=== PATIENT | female | born 1975 | race African-American/Black ===

== ENCOUNTER 2016-11-11 07:04 | Emergency (ER) | payer MEDICAID ==
[2016-11-11] MEDS ORDERED: IPRATROPIUM/ALBUTEROL 0.5-2.5 MG/3 ML AMPUL NEB ONE (09:19)
[2016-11-11] MEDS ORDERED: PREDNISONE 20 MG TABLET PO ONE (09:19)
[2016-11-11] MEDS ORDERED: AZITHROMYCIN 250 MG TABLET PO ONE (09:24)
[2016-11-11] MEDS ORDERED: ALBUTEROL SULFATE 0.083% NEB 2.5 MG/3 ML AMPUL NEB SCH (09:30)
--- NOTE | 2016-11-11 10:23 | ER Document Report ---
ED Respiratory Problem - General Chief Complaint: Asthma Exacerbation Stated Complaint: SHORTNESS OF BREATH Time seen by provider: 09:20 Mode of Arrival: Ambulatory Information source: Patient Notes: 41-year-old female presents to ED for cough congestion and wheezing. She does not have all of her meds and has a nasal congestion denies any fever nausea or vomiting. TRAVEL OUTSIDE OF THE [place] IN LAST 30 DAYS: No - HPI Patient complains to provider of: Asthma, Cough, Short of breath Onset: Other - 3 days Duration: Continuous Initiating Event: URI Quality of pain: Other Severity: Moderate - Tight Pain Level: 3 Short of Breath: Mild Chest pain/discomfort: Tightness Cough: Productive Sputum amount: Small Sputum color: Yellow Sputum consistency: Thick At home treatment: Bronchodilators Associated symptoms: Congestion, Cough, PND, Runny nose, Wheezing Similar symptoms previously: Yes Recently seen / treated by doctor: No - Related Data Allergies/Adverse Reactions: codeine Allergy (Verified 11/11/16 09:23) latex Allergy (Verified 11/11/16 09:23) RASH, SWOLLEN TONGUE Past Medical History - General Information source: Patient - Social History Smoking Status: Current Every Day Smoker Cigarette use (# per day): Yes - 1-2 back amount today Chew tobacco use (# tins/day): No Smoking Education Provided: Yes - less than 2 minutes Frequency of alcohol use: None Drug Abuse: Marijuana Lives with: Alone Family History: Arthritis, CAD, CVA, DM, Hyperlipidemia, Hypertension, Malignancy, Thyroid Disfunction Patient has suicidal ideation: No Patient has homicidal ideation: No - Past Medical History Cardiac Medical History: Reports: None Pulmonary Medical History: Reports: Hx Asthma EENT Medical History: Reports: None Neurological Medical History: Reports: None Endocrine Medical History: Reports: None Renal/ Medical History: Reports: None Malignancy Medical History: Reports: None GI Medical History: Reports: None Musculoskeltal Medical History: Reports None Skin Medical History: Reports None Psychiatric Medical History: Reports: Hx Anxiety, Hx Depression, Hx Post Traumatic Stress Disorder Traumatic Medical History: Reports: None Infectious Medical History: Reports: None Past Surgical History: Reports: Hx Adenoidectomy, Hx Tonsillectomy, Hx Tubal Ligation - Immunizations Hx Diphtheria, Pertussis, Tetanus Vaccination: Yes Review of Systems - Review of Systems Constitutional: Recent illness. denies: Fever EENT: Nose discharge Cardiovascular: No symptoms reported Respiratory: Cough, Sputum, Wheezing Gastrointestinal: No symptoms reported Genitourinary: No symptoms reported Female Genitourinary: No symptoms reported Musculoskeletal: No symptoms reported Skin: No symptoms reported Hematologic/Lymphatic: No symptoms reported Neurological/Psychological: No symptoms reported Physical Exam - Vital signs Vitals: Temp Pulse BP Pulse Ox 98.3 F 81 128/72 H 97 11/11/16 07:13 11/11/16 07:13 11/11/16 07:13 11/11/16 07:13 Course - Re-evaluation Re-evalutation: 11/11/16 19:24 Discussed x-rays with patient patient sent home on prescriptions for prednisone and albuterol and azithromycin. Patient to follow-up with her primary doctor list of primary doctors given to patient. - Vital Signs Vital signs: Temp Pulse Resp BP Pulse Ox 98.3 F 81 20 128/72 H 97 11/11/16 07:30 11/11/16 07:30 11/11/16 07:30 11/11/16 07:30 11/11/16 07:30 - Diagnostic Test Radiology reviewed: Image reviewed, Reports reviewed Discharge - Discharge Clinical Impression: Asthma exacerbation Condition: Stable Disposition: HOME, SELF-CARE Instructions: Family Physicians / Practices Additional Instructions: ASTHMA: You have been diagnosed as having asthma. This is a condition where there is episodic tightness in the bronchial tubes. Allergies, infections, and polluted or cold air may be contributing factors. Emergency treatment of a severe asthma attack may include adrenaline shots , or bronchodilator aerosol. You may feel lightheaded, have a decreased exercise tolerance and a rapid pulse for an hour or two. Rest and get plenty of fluids. Home treatment of asthma requires bronchodilator drugs. These can be administered by injection, inhalation, or by mouth. Antibiotics and corticosteroids may be required for some patients. You should avoid chemical fumes, dusts, pollens, and exercising in very cold or dry air. If you smoke, stop!! If you develop a fever, increased wheezing, chest pain, or severe shortness of breath, you should contact the doctor immediately. STEROID MEDICATION: You have been given an injection of or oral medicine of the cortisone/ steroid class. This medication is used to control inflammation or allergy. Khalif t is usually only given for a short period of time, until the acute process subsides. There are usually no side effects from short-term use of cortisone-like medications. Some persons feel an increased sense of well-being and are not sleepy at bedtime. Long-term use of cortisone medications is best avoided, unless required for a severe condition. If your condition does not remit, or relapses after the course of corticosteroid medication, you should consult your physician. INHALED BRONCHODILATORS: You have received treatment(s) of and/or prescription for an inhaled bronchodilator -- a medication which stimulates the airways in the lung to dilate. This improves the flow of air in asthma, bronchitis, and emphysema. These medicines have some similarity to adrenaline, and can cause similar side effects: shakiness, racing heart, and a sense of nervousness. These side effects decrease with time. Contact your doctor if these side effects are severe. Do not over-use the medicine. Too-frequent use of the inhaler may make it ineffective. Call your doctor if the inhaler is not controlling your symptoms at the prescribed doses. SMOKING: If you smoke, you should stop smoking. The tar and chemicals in cigarette smoke are harmful. Smoking has been shown to cause: emphysema chronic bronchitis lung cancer mouth and throat cancer stomach and pancreas cancer premature aging defects In addition, smoking increases ear and lung infections in children of smokers. AZITHROMYCIN: Azithromycin (Zithromax) is a broad spectrum antibiotic in the same class as erythromycin. It can treat a variety of bacterial infections, but is most frequently used for respiratory infections. Azithromycin is extremely long-lasting. It accumulates in body tissues and continues to kill bacteria for many days. In order to improve absorption, Azithromycin should be taken at least one hour before or two hours after a meal. It does not have the same strong tendency to upset the stomach as erythromycin and is usually very well tolerated. Patients who have had a rash or other true allergic reactions to erythromycin should not take this medication. Call if you develop gastrointestinal distress, severe diarrhea, rash, hives, itching, or shortness of breath. USE OF ACETAMINOPHEN (Tylenol): Acetaminophen may be taken for pain relief or fever control. It's much safer than aspirin, offering a wider range of "safe" dosages. It is safe during . Some brand names are Tylenol, Panadol, Datril, Anacin 3, Tempra, and Liquiprin. Acetaminophen can be repeated every four hours. The following are maximum recommended dosages: WEIGHT Dose Drops Elixir Chewable( 80mg) (LBS.) drprs=droppers tsp=teaspoon 6 40 mg 0.4 ml (1/2) 6-11 80 mg 0.8 ml (full) tsp 1 tab 12-16 120 mg 1 1/2 drprs 3/4 tsp 1 1/2 tabs 17-23 160 mg 2 drprs 1 tsp 2 tabs 24-30 240 mg 3 drprs 1 1/2 tsp 3 tabs 30-35 320 mg 2 tsp 4 tabs 36-41 360 mg 2 1/4 tsp 4 1/2 tabs 42-47 400 mg 2 1/2 tsp 5 tabs 48-53 480 mg 3 tsp 6 tabs 54-59 520 mg 3 1/4 tsp 6 1/2 tabs 60-64 560 mg 3 1/2 tsp 7 tabs 65-70 600 mg 3 3/4 tsp 7 1/2 tabs 71-76 640 mg 4 tsp 8 tabs 77-82 720 mg 4 1/2 tsp 9 tabs 83-88 800 mg 5 tsp 10 tabs >89 pounds or adults 650 mg to 900 mg Acetaminophen can be repeated every four hours. Maximum dose not to exceed 4000 mg a day. These maximum recommended dosages are slightly higher than the dosages written on the product container, but these dosages are very safe and below the toxic dosage for acetaminophen. FOLLOW-UP CARE: If you have been referred to a physician for follow-up care, call the physician s office for an appointment as you were instructed or within the next two days. If you experience worsening or a significant change in your symptoms, notify the physician immediately or return to the Emergency Department at any time for re-evaluation. Prescriptions: Albuterol Sulfate [Proair HFA Inhalation Aerosol 8.5 gm MDI] 2 puff IH Q4H PRN # 1 mdi PRN Reason: Azithromycin [Zithromax 250 mg Tablet] 250 mg PO ASDIR PRN #6 tablet PRN Reason: Prednisone [Deltasone 20 mg Tablet] 3 tab PO DAILY 5 Days
[2016-11-11 11:59] VITALS: BP 127/76
== END 2016-11-11 12:02 | disposition home or self-care (01) ==
LOC: ER 07:04
DX: J45.901 Unspecified asthma with (acute) exacerbation (principal); R06.02 Shortness of breath; F17.210 Nicotine dependence, cigarettes, uncomplicated; Z91.040 Latex allergy status; Z98.51 Tubal ligation status; Z88.6 Allergy status to analgesic agent
CPT/HCPCS: 94640; 99284; 71020; Q0144; J7512; J7620

== ENCOUNTER 2017-03-29 03:09 | Emergency (ER) | payer SELFPAY ==
[2017-03-29] MEDS ORDERED: PREDNISONE 20 MG TABLET PO ONE (03:26)
[2017-03-29] MEDS ORDERED: IPRATROPIUM/ALBUTEROL 0.5-2.5 MG/3 ML AMPUL NEB ONE ×2 (03:26→05:26)
[2017-03-29] MEDS: ALBUTEROL SULFATE 0.083% NEB 2.5 MG/3 ML AMPUL NEB SCH ×2 (03:44→04:00)
[2017-03-29] MEDS ORDERED: MAGNESIUM SULFATE/D5W 100 ML IV PRN (05:26)
[2017-03-29] MEDS ORDERED: NORMAL SALINE 1000 ML 1,000 ML IV ONE (05:27)
--- NOTE | 2017-03-29 05:29 | ER Document Report ---
ED Medical Screen (RME) - General Chief Complaint: Asthma Exacerbation Stated Complaint: DIFFICULTY BREATHING Time Seen by Provider: 03/29/17 05:25 Notes: Patient is a 41-year-old asthmatic that comes emergency department for chief complaint of several days of cough and worsening wheezing. She denies fever. She has received 2 DuoNeb treatments after arrival and 40 mg of prednisone. She states she feels somewhat improved. She continues to intermittently smoke. Patient also states that she is urinating all the time and cannot drink enough fluids. No diagnosis of diabetes. Diabetes runs in the family. TRAVEL OUTSIDE OF THE [place] IN LAST 30 DAYS: No - Related Data Allergies/Adverse Reactions: codeine Allergy (Verified 11/11/16 09:23) latex Allergy (Verified 11/11/16 09:23) RASH, SWOLLEN TONGUE Past Medical History Pulmonary Medical History: Reports: Hx Asthma Renal/ Medical History: Denies: Hx Peritoneal Dialysis Psychiatric Medical History: Reports: Hx Anxiety, Hx Depression, Hx Post Traumatic Stress Disorder Past Surgical History: Reports: Hx Adenoidectomy, Hx Tonsillectomy, Hx Tubal Ligation - Immunizations Hx Diphtheria, Pertussis, Tetanus Vaccination: Yes Physical Exam - Vital signs Vitals: Temp Pulse Resp BP Pulse Ox 97.7 F 88 22 H 120/85 97 03/29/17 03:23 03/29/17 03:03/29/17 03:23 03/29/17 03:23 03/29/17 03:23 - General General appearance: Appears well In distress: None - Patient can speak in full sentences, smiling, intermittently coughing - Respiratory Respiratory status: No: Respiratory distress, Labored, Tachypnea - Borderline Breath sounds: Nonproductive cough, Wheezing - Loud expiratory wheezes bilaterally but good air movement Course - Re-evaluation Re-evalutation: Patient is not in respiratory distress, has loud expiratory wheezes, good air movement, no hypoxia. Workup for diabetes and evaluation of respiratory status. - Vital Signs Vital signs: Temp Pulse Resp BP Pulse Ox 97.7 F 88 22 H 120/85 98 03/29/17 03:23 03/29/17 03:23 03/29/17 03:23 03/29/17 03:23 03/29/17 05:21
[2017-03-29] MEDS ORDERED: ALBUTEROL SULFATE 0.083% NEB 2.5 MG/3 ML AMPUL NEB ONE (06:15)
[2017-03-29 06:17] LABS: ABSOLUTE BASOPHILS # (AUTO) 0.1 10^3/uL (0.0-0.2); ABSOLUTE EOSINOPHILS # (AUTO) 0.2 10^3/uL (0.0-0.6); ABSOLUTE LYMPHOCYTES (AUTO) 2.8 10^3/uL (0.5-4.7); ABSOLUTE MONOCYTES (AUTO) 0.6 10^3/uL (0.1-1.4); EOSINOPHILS % (AUTO) 1.3 % (0-6); HEMATOCRIT 43.2 % (36.0-47.0); HEMOGLOBIN 14.2 g/dL (12.0-15.5); HGB HCT DIFFERENCE -0.6; LYMPHOCYTES % (AUTO) 20.5 % (13-45); MEAN CORPUSCULAR HEMOGLOBIN 28.9 pg (27.0-33.4); MEAN CORPUSCULAR HGB CONC 32.9 g/dL (32.0-36.0); MEAN CORPUSCULAR VOLUME 88 fl (80-97); MONOCYTES % (AUTO) 4.4 % (3-13); RED BLOOD COUNT 4.92 10^6/uL (3.72-5.28); RED CELL DISTRIBUTION WIDTH 14.2 % (11.5-14.0); SEGMENTED NEUTROPHILS % (AUTO) 72.8 % (42-78); WHITE BLOOD COUNT 13.8 10^3/uL (4.0-10.5)
--- NOTE | 2017-03-29 06:39 | RADIOLOGY REPORT (SQ) ---
EXAM DESCRIPTION: CHEST SINGLE VIEW COMPLETED DATE/TIME: 03/29/2017 6:26 am REASON FOR STUDY: cough, shortness of breath COMPARISON: Chest x-ray 11/11/2016. EXAM PARAMETERS: NUMBER OF VIEWS: One view. TECHNIQUE: Single frontal radiographic view of the chest acquired. RADIATION DOSE: NA LIMITATIONS: None. FINDINGS: LUNGS AND PLEURA: No consolidation, pneumothorax or pleural effusion. MEDIASTINUM AND HILAR STRUCTURES: No masses. Contour normal. HEART AND VASCULAR STRUCTURES: Heart normal in size. No overt vascular congestion. BONES: No acute findings. HARDWARE: None in the chest. IMPRESSION: No acute radiographic finding in the chest. TECHNICAL DOCUMENTATION: JOB ID: [id number]
[2017-03-29 06:55] LABS: ALANINE AMINOTRANSFERASE 31 U/L (9-52); ALKALINE PHOSPHATASE 172 U/L (38-126); ANION GAP 10 (5-19); ASPARTATE AMINO TRANSFERASE 15 U/L (14-36); BILIRUBIN,DIRECT 0.3 mg/dL (0.0-0.4); BILIRUBIN,TOTAL 0.4 mg/dL (0.2-1.3); BLOOD UREA NITROGEN 18 mg/dL (7-20); CALCIUM 9.4 mg/dL (8.4-10.2); CARBON DIOXIDE 19 mmol/L (22-30); CHLORIDE 108 mmol/L (98-107); CREATININE RESULT 0.87 mg/dL (0.52-1.25); GLUCOSE 107 mg/dL (75-110); POTASSIUM 4.1 mmol/L (3.6-5.0)
[2017-03-29 06:56] LABS: TOTAL PROTEIN 7.3 g/dL (6.3-8.2)
[2017-03-29 08:05] LABS: APPEARANCE,URINE CLEAR; BILIRUBIN,URINE NEGATIVE (NEGATIVE); GLUCOSE, URINE NEGATIVE (NEGATIVE); KETONES,URINE NEGATIVE (NEGATIVE); LEUKOCYTE ESTERASE,URINE NEGATIVE (NEGATIVE); NITRITE,URINE NEGATIVE (NEGATIVE); PROTEIN,URINE NEGATIVE (NEGATIVE); URINE SPECIFIC GRAVITY 1.005; UROBILINOGEN,URINE NEGATIVE mg/dL (<2.0)
[2017-03-29 08:47] VITALS: BP 129/80
[2017-03-29] MEDS ORDERED: ALBUTEROL SULFATE HFA (90 MCG/PUFF) 8 GM MDI (1 MDI/ER DISP) IH ONE (08:49)
--- NOTE | 2017-03-29 08:49 | ER Document Report ---
ED General - General Chief Complaint: Asthma Exacerbation Stated Complaint: DIFFICULTY BREATHING Time Seen by Provider: 03/29/17 05:25 TRAVEL OUTSIDE OF THE [place] IN LAST 30 DAYS: No - HPI Patient complains to provider of: Shortness of breath Notes: Patient coming in for shortness of breath. Patient has a history of asthma with admissions in the past. Patient states that she has ran out of her medication recently patient does state that she was taken prednisone and albuterol. Denies any recent antibiotics denies any recent travel. Patient is lying flat upon my evaluation. Patient denies any production of cough denies fever chills nausea vomiting chest pain abdominal pain. - Related Data Allergies/Adverse Reactions: codeine Allergy (Verified 11/11/16 09:23) latex Allergy (Verified 11/11/16 09:23) RASH, SWOLLEN TONGUE Past Medical History - Social History Smoking Status: Unknown if Ever Smoked Family History: Arthritis, CAD, CVA, DM, Hyperlipidemia, Hypertension, Malignancy, Thyroid Disfunction Patient has suicidal ideation: No Patient has homicidal ideation: No Pulmonary Medical History: Reports: Hx Asthma Renal/ Medical History: Denies: Hx Peritoneal Dialysis Psychiatric Medical History: Reports: Hx Anxiety, Hx Depression, Hx Post Traumatic Stress Disorder Past Surgical History: Reports: Hx Adenoidectomy, Hx Tonsillectomy, Hx Tubal Ligation - Immunizations Hx Diphtheria, Pertussis, Tetanus Vaccination: Yes Review of Systems - Review of Systems Constitutional: No symptoms reported EENT: No symptoms reported Cardiovascular: No symptoms reported Respiratory: Cough, Short of breath, Wheezing Gastrointestinal: No symptoms reported Genitourinary: No symptoms reported Female Genitourinary: No symptoms reported Musculoskeletal: No symptoms reported Skin: No symptoms reported Hematologic/Lymphatic: No symptoms reported Neurological/Psychological: No symptoms reported -: Yes All other systems reviewed and negative Physical Exam - Vital signs Vitals: Temp Pulse Resp BP Pulse Ox 97.7 F 88 22 H 120/85 97 03/29/17 03:23 03/29/17 03:23 03/29/17 03:23 03/29/17 03:23 03/29/17 03:23 Interpretation: Normal - General General appearance: Appears well, Alert - HEENT Head: Normocephalic, Atraumatic Eyes: Normal Pupils: PERRL - Respiratory Respiratory status: No respiratory distress Chest status: Nontender Breath sounds: Normal Chest palpation: Normal - Cardiovascular Rhythm: Regular Heart sounds: Normal auscultation Murmur: No - Abdominal Inspection: Normal Distension: No distension Bowel sounds: Normal Tenderness: Nontender Organomegaly: No organomegaly - Back Back: Normal, Nontender - Extremities General upper extremity: Normal inspection, Nontender, Normal color, Normal ROM , Normal temperature General lower extremity: Normal inspection, Nontender, Normal color, Normal ROM , Normal temperature, Normal weight bearing. No: Babatunde's sign - Neurological Neuro grossly intact: Yes Cognition: Normal Orientation: AAOx4 Gruver Coma Scale Eye Opening: Spontaneous Gruver Coma Scale Verbal: Oriented Amrik Coma Scale Motor: Obeys Commands Amrik Coma Scale Total: 15 Speech: Normal Motor strength normal: LUE, RUE, LLE, RLE Sensory: Normal - Psychological Associated symptoms: Normal affect, Normal mood - Skin Skin Temperature: Warm Skin Moisture: Dry Skin Color: Normal Course - Re-evaluation Re-evalutation: 03/29/17 14:09 Patient lungs clear sleeping with normal saturation. Patient was to be in no obvious distress. Patient will be discharged home with bronchodilators encouraged follow-up primary care physician - Vital Signs Vital signs: Temp Pulse Resp BP Pulse Ox 97.7 F 88 21 H 129/80 H 96 03/29/17 03:23 03/29/17 03:23 03/29/17 09:00 03/29/17 08:31 03/29/17 09:00 - Laboratory Result Diagrams: 03/29/17 06:00 03/29/17 06:31 Laboratory results interpreted by me: 03/29/17 03/29/17 06:00 06:31 WBC 13.8 H RDW 14.2 H Absolute Neutrophils 10.0 H Chloride 108 H Carbon Dioxide 19 L Alkaline Phosphatase 172 H Discharge - Discharge Clinical Impression: Asthma exacerbation Condition: Good Disposition: HOME, SELF-CARE Instructions: Asthma (OM), Stop Smoking (OM), Inhaled Bronchodilators (OM) Additional Instructions: Your lab work today shows no signs of acute pathology. Please follow-up with your primary care physician. Return to the ER symptoms worsen. Take medication as prescribed. Prescriptions: Albuterol Sulfate [Albuterol Sulfate 2.5mg/3 mL] 2.5 mg IH Q4 #30 ml Prednisone [Deltasone 20 mg Tablet] 3 tab PO DAILY 5 Days
== END 2017-03-29 09:10 | disposition home or self-care (01) ==
LOC: ER 03:09
DX: J45.901 Unspecified asthma with (acute) exacerbation (principal); Z88.6 Allergy status to analgesic agent; Z91.040 Latex allergy status; Z98.51 Tubal ligation status
CPT/HCPCS: 94640 ×2; 99285; 96361; 96365; 36415; 85025; 81025; 80053; 81001; 71010; J3475; J7512; J7030; J3490; J7620

== ENCOUNTER 2017-04-16 00:59 | Inpatient (IN) | payer SELFPAY ==
[2017-04-16] MEDS ORDERED: IPRATROPIUM/ALBUTEROL 0.5-2.5 MG/3 ML AMPUL NEB ONE ×3 (01:10)
[2017-04-16] MEDS ORDERED: METHYLPREDNISOLONE INJ 125 MG/2 ML SDV IV ONE (01:11)
--- NOTE | 2017-04-16 01:12 | ER Document Report ---
ED Medical Screen (RME) - General Chief Complaint: Shortness Of Breath Stated Complaint: TROUBLE BREATHING Time Seen by Provider: 04/16/17 01:10 Notes: Patient is a 41-year-old female with a history of asthma that comes emergency department for chief complaint of difficulty breathing. She states that she has had difficulty for the past couple weeks, she finished a prednisone treatment some days ago, she finished up her home inhaler tonight. She denies smoking, fever, or history of intubation. TRAVEL OUTSIDE OF THE [place] IN LAST 30 DAYS: No - Related Data Allergies/Adverse Reactions: codeine Allergy (Verified 11/11/16 09:23) latex Allergy (Verified 11/11/16 09:23) RASH, SWOLLEN TONGUE Past Medical History Pulmonary Medical History: Reports: Hx Asthma Renal/ Medical History: Denies: Hx Peritoneal Dialysis Psychiatric Medical History: Reports: Hx Anxiety, Hx Depression, Hx Post Traumatic Stress Disorder Past Surgical History: Reports: Hx Adenoidectomy, Hx Tonsillectomy, Hx Tubal Ligation - Immunizations Hx Diphtheria, Pertussis, Tetanus Vaccination: Yes Physical Exam - Vital signs Vitals: Pulse Resp BP Pulse Ox 113 H 25 H 146/102 H 93 04/16/17 01:07 04/16/17 01:07 04/16/17 01:07 04/16/17 01:07 - Respiratory Respiratory status: Tachypnea - mild Breath sounds: Decreased air movement, Nonproductive cough, Wheezing Course - Re-evaluation Re-evalutation: Patient with mild tachypnea, she is still talking in complete sentences. Decreased breath sounds and wheezing throughout. Nonproductive cough. Initiating treatments. - Vital Signs Vital signs: Temp Pulse Resp BP Pulse Ox 113 H 25 H 146/102 H 93 04/16/17 01:07 04/16/17 01:07 04/16/17 01:07 04/16/17 01:07
[2017-04-16] MEDS ORDERED: ALBUTEROL SULFATE 0.083% NEB 2.5 MG/3 ML AMPUL NEB ONE (01:46)
--- NOTE | 2017-04-16 01:48 | ER Document Report ---
ED General - General Chief Complaint: Shortness Of Breath Stated Complaint: TROUBLE BREATHING Time Seen by Provider: 04/16/17 01:10 Cannot obtain history due to: Unstable vital signs Notes: Patient is a 41-year-old female with past medical history of asthma, has had prior hospitalization but no prior intubations who presents with 2 days of progressively worsening shortness of breath. Patient just got off a steroid taper several days ago and notes that her symptoms gotten progressively worse since that time. She has not noted any seems to acutely worsen her symptoms. She has not seen her primary care doctor regarding today's concerns. At time of my assessment patient notes that she feels severely short of breath and appears to be in respiratory distress. TRAVEL OUTSIDE OF THE [place] IN LAST 30 DAYS: No - Related Data Allergies/Adverse Reactions: codeine Allergy (Verified 11/11/16 09:23) latex Allergy (Verified 11/11/16 09:23) RASH, SWOLLEN TONGUE Past Medical History - General Information source: Patient Cannot obtain history due to: Unstable vital signs - Social History Smoking Status: Never Smoker Frequency of alcohol use: None Drug Abuse: None Family History: Arthritis, CAD, CVA, DM, Hyperlipidemia, Hypertension, Malignancy, Thyroid Disfunction Patient has suicidal ideation: No Patient has homicidal ideation: No Pulmonary Medical History: Reports: Hx Asthma Renal/ Medical History: Denies: Hx Peritoneal Dialysis Psychiatric Medical History: Reports: Hx Anxiety, Hx Depression, Hx Post Traumatic Stress Disorder Past Surgical History: Reports: Hx Adenoidectomy, Hx Tonsillectomy, Hx Tubal Ligation - Immunizations Hx Diphtheria, Pertussis, Tetanus Vaccination: Yes Review of Systems - Review of Systems Notes: Constitutional: Negative for fever. HENT: Negative for sore throat. Eyes: Negative for visual changes. Cardiovascular: Negative for chest pain. Respiratory: Positive for shortness of breath. Gastrointestinal: Negative for abdominal pain, vomiting or diarrhea. Genitourinary: Negative for dysuria. Musculoskeletal: Negative for back pain. Skin: Negative for rash. Neurological: Negative for headaches, weakness or numbness. 10 point ROS negative except as marked above and in HPI. Physical Exam - Vital signs Vitals: Pulse Resp BP Pulse Ox 113 H 25 H 146/102 H 93 04/16/17 01:07 04/16/17 01:07 04/16/17 01:07 04/16/17 01:07 Interpretation: Tachycardic, Hypoxic, Tachypneic Notes: PHYSICAL EXAMINATION: GENERAL: Appears to be in moderate respiratory distress, sitting in a tripod position. HEAD: Atraumatic, normocephalic. EYES: Pupils equal round and reactive to light, extraocular movements intact, sclera anicteric, conjunctiva are normal. ENT: nares patent, oropharynx clear without exudates. Moderately dry mucous membranes. NECK: Normal range of motion, supple without lymphadenopathy LUNGS: Moderate to severe respiratory distress with initial respiratory of 32 at time of my assessment. Unable to complete a forward sentence without needing to take a breath. Extensive expiratory wheezing in all lung hunt with diminished air movement throughout. HEART: Regular tachycardia without murmurs ABDOMEN: Soft, nontender, normoactive bowel sounds. No guarding, no rebound. No masses appreciated. EXTREMITIES: Normal range of motion, no pitting or edema. No cyanosis. NEUROLOGICAL: No focal neurological deficits. Moves all extremities spontaneously and on command. PSYCH: Normal mood, normal affect. SKIN: Warm, Dry, normal turgor, no rashes or lesions noted. Course - Re-evaluation Re-evalutation: 04/16/17 01:46 Patient presents in moderate to severe respiratory distress initially tachypneic at 32 breaths per minute. At time of my assessment, patient is still breathing at 32 times a minute, wheezing, unable to speak and greater than 3 word sentences. She was immediately placed on a continuous nebulizer, IV access was established, IV steroids and magnesium will be administered. She will be placed on a continuous monitor and will require frequent reassessments given her degree of difficulty breathing. 04/16/17 02:27 Patient remains mildly tachypneic at 24 breaths per minute, continues to wheeze although is now able to talk in a near complete sentences. Will continue to monitor. 04/16/17 03:19 I have again reassess the patient and she persists with wheezing, mild tachypnea remains at approximately 22 breaths per minute. She is able to complete 5 words at this time without needing to take a breath in a sentence but continues to be visibly short of breath. Patient would like to be discharged home but I do not think this is safe and I have discussed this with the patient. She is agreeable to admission. I discussed Dr. Styles who is requesting basic laboratories and then will admit. - Vital Signs Vital signs: Temp Pulse Resp BP Pulse Ox 113 H 20 146/102 H 99 04/16/17 01:07 04/16/17 02:00 04/16/17 01:07 04/16/17 01:55 - Diagnostic Test Radiology reviewed: Image reviewed, Reports reviewed Radiology results interpreted by me: 04/16/17 02:45 Chest x-ray: No acute infiltrate or pneumothorax Critical Care Note - Critical Care Note Total time excluding time spent on procedures (mins): 36 Comments: Critical care time spent obtaining history from patient or surrogate, discussions with consultants, development of treatment plan with patient or surrogate, evaluation of patient's response to treatment, examination of patient , ordering and performing treatments and interventions, ordering and review of laboratory studies, re-evaluation of patient's condition, ordering and review of radiographic studies and review of old charts Discharge - Discharge Clinical Impression: Acute severe exacerbation of asthma, Respiratory distress Condition: Fair Disposition: ADMITTED INPATIENT Admitting Provider: Hospitalist Unit Admitted: [facility]
[2017-04-16] MEDS: MAGNESIUM SULFATE/D5W 100 ML IV SCH ×2 (01:52→05:38)
--- NOTE | 2017-04-16 02:30 | RADIOLOGY REPORT (SQ) ---
EXAM DESCRIPTION: CHEST SINGLE VIEW COMPLETED DATE/TIME: 04/16/2017 2:07 am REASON FOR STUDY: shortness of breath COMPARISON: 03/29/2017. 02/08/2016. EXAM PARAMETERS: NUMBER OF VIEWS: One view. TECHNIQUE: Single frontal radiographic view of the chest acquired. RADIATION DOSE: NA LIMITATIONS: None. FINDINGS: LUNGS AND PLEURA: Prominent interstitium, chronic. MEDIASTINUM AND HILAR STRUCTURES: No masses. Contour normal. HEART AND VASCULAR STRUCTURES: Heart normal in size. Normal vasculature. BONES: No acute findings. HARDWARE: None in the chest. OTHER: No other significant finding. IMPRESSION: NO ACUTE RADIOGRAPHIC FINDING IN THE CHEST. TECHNICAL DOCUMENTATION: JOB ID: [id number]
[2017-04-16 04:08] LABS: ANION GAP 11 (5-19); BLOOD UREA NITROGEN 13 mg/dL (7-20); CALCIUM 9.2 mg/dL (8.4-10.2); CARBON DIOXIDE 21 mmol/L (22-30); CHLORIDE 106 mmol/L (98-107); CREATININE RESULT 0.77 mg/dL (0.52-1.25); GLUCOSE 120 mg/dL (75-110); POTASSIUM 3.7 mmol/L (3.6-5.0); SODIUM 138.2 mmol/L (137-145)
[2017-04-16 04:30] LABS: ARTERIAL BLOOD BASE EXCESS -1.3 mmol/L; ARTERIAL BLOOD O2 SATURATION 93.5 % (94-98)
[2017-04-16] MEDS ORDERED: CHLORPHENIRAMINE MALEATE 4 MG TABLET PO PRN (04:35)
[2017-04-16] MEDS ORDERED: CHLORPHENIRAMINE MALEATE 4 MG TABLET PO ONE ×2 (04:35→08:00)
[2017-04-16] MEDS ORDERED: NICOTINE 7 MG/24 HR PATCH.TD24 TD PRN (04:35)
[2017-04-16 04:49] LABS: ABSOLUTE BASOPHILS # (AUTO) 0.1 10^3/uL (0.0-0.2); ABSOLUTE EOSINOPHILS # (AUTO) 0.1 10^3/uL (0.0-0.6); ABSOLUTE LYMPHOCYTES (AUTO) 1.7 10^3/uL (0.5-4.7); ABSOLUTE MONOCYTES (AUTO) 0.2 10^3/uL (0.1-1.4); BASOPHILS % (AUTO) 0.8 % (0-2); EOSINOPHILS % (AUTO) 0.9 % (0-6); HEMATOCRIT 39.5 % (36.0-47.0); HEMOGLOBIN 13.6 g/dL (12.0-15.5); HGB HCT DIFFERENCE 1.3; LYMPHOCYTES % (AUTO) 15.5 % (13-45); MEAN CORPUSCULAR HGB CONC 34.5 g/dL (32.0-36.0); MEAN CORPUSCULAR VOLUME 87 fl (80-97); MONOCYTES % (AUTO) 1.9 % (3-13); RED BLOOD COUNT 4.54 10^6/uL (3.72-5.28); RED CELL DISTRIBUTION WIDTH 14.5 % (11.5-14.0); SEGMENTED NEUTROPHILS % (AUTO) 80.9 % (42-78); WHITE BLOOD COUNT 11.1 10^3/uL (4.0-10.5)
[2017-04-16] MEDS: LANSOPRAZOLE 30 MG TAB.RAP.DR PO SCH ×2 (06:14→16:24)
[2017-04-16] MEDS: HEPARIN SOD (PORCINE) 5,000 UNIT/ML 1 ML SYRINGE SUBCUT SCH ×3 (06:14→22:24)
[2017-04-16] MEDS: ACETAMINOPHEN 325 MG TABLET PO PRN ×4 (06:15→20:54)
--- NOTE | 2017-04-16 06:30 | PDOC H&P ---
History of Present Illness Admission Date/PCP: 04/16/17 04:31 Patient complains of: Wheezing, shortness of breath and cough History of Present Illness: ISHA REDMOND is a 41 year old female with a past medical history of asthma not requiring intubation and obesity who has been her usual state of health until approximately 3 weeks ago noting exceptional unrelenting wheezing and shortness of breath unresponsive to home nebulizer prompting evaluation emergency room several times. She had an acute exacerbation of the last 6 hours requiring evaluation in the emergency department where she is unable to speak with global wheeze and cough. She denies fever chills nausea vomiting she admits gerd symptoms. She has run out of Advair. She does not know her baseline peak flow. Past Medical History Pulmonary Medical History: Reports: Asthma Psychiatric Medical History: Reports: Depression, Post Traumatic Stress Disorder Past Surgical History Past Surgical History: Reports: Adenoidectomy, Tonsillectomy, Tubal Ligation Social History Information Source: Patient Smoking Status: Former Smoker Frequency of Alcohol Use: None Hx Recreational Drug Use: No Drugs: None Hx Prescription Drug Abuse: No - Advance Directive Resuscitation Status: Full Code Family History Family History: Arthritis, CAD, CVA, DM, Hyperlipidemia, Hypertension, Malignancy, Thyroid Disfunction Parental Family History Reviewed: Yes Children Family History Reviewed: Yes Sibling(s) Family History Reviewed.: Yes Medication/Allergy Home Medications: Acetaminophen [Tylenol 325 mg Tablet] 650 mg PO Q4HP PRN tablet 07/19/16 Albuterol Sulfate [Proair HFA Inhalation Aerosol 8.5 gm MDI] 2 puff IH QIDP PRN #1 hfa.aer.ad 07/19/16 Albuterol Sulfate [Ventolin 0.083% Neb 2.5 mg/3 mL Ampul] 2.5 mg NEB Q6HP PRN # 60 vial.neb 07/19/16 Albuterol Sulfate [Ventolin HFA MDI 18 GM] 2 inh IH Q4HP PRN #1 gm 07/19/16 Doxycycline Hyclate [Vibramycin 100 mg Tablet] 100 mg PO Q12 #10 tablet Fluticasone/Salmeterol [Advair 500-50 Diskus 28 Dose] 1 inh IH Q12H #1 inhaler 07/19/16 Lansoprazole [Prevacid 30 mg Odt Tablet] 30 mg PO ACBRKFST #30 tab.rap. Lorazepam [Ativan 1 mg Tablet] 1 mg PO Q8HP PRN #15 tab 07/19/16 Nicotine [Nicoderm 7 mg/24 Hr Transdermal Patch] 1 each TD DAILY #7 patch.td24 07/19/16 Prednisone [Deltasone 20 mg Tablet] 60 mg PO DAILY@1300 #13 tablet 07/19/16 Albuterol Sulfate [Proair HFA Inhalation Aerosol 8.5 gm MDI] 2 puff IH Q4H PRN # 1 mdi 11/11/16 Azithromycin [Zithromax 250 mg Tablet] 250 mg PO ASDIR PRN #6 tablet 11/11/16 Prednisone [Deltasone 20 mg Tablet] 3 tab PO DAILY 5 Days 11/11/16 Albuterol Sulfate [Albuterol Sulfate 2.5mg/3 mL] 2.5 mg IH Q4 #30 ml 03/29/17 Prednisone [Deltasone 20 mg Tablet] 3 tab PO DAILY 5 Days 03/29/17 Allergies/Adverse Reactions: codeine Allergy (Verified 11/11/16 09:23) latex Allergy (Verified 11/11/16 09:23) RASH, SWOLLEN TONGUE Review of Systems Constitutional: ABSENT: chills, fever(s), headache(s), weight gain, weight loss Eyes: ABSENT: visual disturbances Ears: ABSENT: hearing changes Cardiovascular: ABSENT: chest pain, dyspnea on exertion, edema, orthropnea, palpitations Respiratory: PRESENT: cough, dyspnea, other - Bilateral wheeze. ABSENT: hemoptysis, sputum Gastrointestinal: PRESENT: heartburn. ABSENT: abdominal pain, constipation, diarrhea, hematemesis, hematochezia, nausea, vomiting Genitourinary: ABSENT: dysuria, hematuria Musculoskeletal: ABSENT: joint swelling Integumentary: ABSENT: rash, wounds Neurological: ABSENT: abnormal gait, abnormal speech, confusion, dizziness, focal weakness, syncope Psychiatric: ABSENT: anxiety, depression, homidical ideation, suicidal ideation Endocrine: ABSENT: cold intolerance, heat intolerance, polydipsia, polyuria Hematologic/Lymphatic: ABSENT: easy bleeding, easy bruising Physical Exam Vital Signs: Temp Pulse Resp BP Pulse Ox 98.3 F 97 24 H 168/75 H 98 04/16/17 05:16 04/16/17 05:16 04/16/17 05:16 04/16/17 05:16 04/16/17 05:16 Intake & Output 04/14/17 04/15/17 04/16/17 11:59 11:59 11:59 Intake Total 0 Balance 0 Weight 106.2 kg General appearance: PRESENT: cooperative, mild distress, obese Head exam: PRESENT: atraumatic, normocephalic Eye exam: PRESENT: conjunctiva pink, EOMI, PERRLA. ABSENT: scleral icterus Ear exam: PRESENT: bleeding Mouth exam: PRESENT: moist, tongue midline Neck exam: ABSENT: carotid bruit, JVD, lymphadenopathy, thyromegaly Respiratory exam: PRESENT: accessory muscle use, decreased breath sounds, retraction, tachypnea, wheezes. ABSENT: chest wall tenderness, clear to auscultation haritha, crackles Cardiovascular exam: PRESENT: RRR. ABSENT: diastolic murmur, rubs, systolic murmur Pulses: PRESENT: normal dorsalis pedis pul Vascular exam: PRESENT: normal capillary refill GI/Abdominal exam: PRESENT: normal bowel sounds, soft. ABSENT: distended, guarding, mass, organolmegaly, rebound, tenderness Rectal exam: PRESENT: deferred Extremities exam: PRESENT: full ROM. ABSENT: calf tenderness, clubbing, pedal edema Neurological exam: PRESENT: alert, awake, oriented to person, oriented to place , oriented to time, oriented to situation, CN II-XII grossly intact. ABSENT: motor sensory deficit Psychiatric exam: PRESENT: appropriate affect, normal mood. ABSENT: homicidal ideation, suicidal ideation Skin exam: PRESENT: dry, intact, warm. ABSENT: cyanosis, rash Results Impressions: Chest X-Ray 04/16/17 01:11 IMPRESSION: NO ACUTE RADIOGRAPHIC FINDING IN THE CHEST. Assessment & Plan - Diagnosis (1) Acute severe exacerbation of asthma Is this a current diagnosis for this admission?: YesPlan: Patient unable to speak 2 words without paroxysms of cough, audible wheeze at bedside. Unclear trigger though symptoms of GERD present. Albuterol and Atrovent, Advair, peak flow every 8 hours (2) GERD (gastroesophageal reflux disease) Is this a current diagnosis for this admission?: YesPlan: Prevacid twice daily and education. - Time Time Spent: 30 to 50 Minutes
[2017-04-16] MEDS: IPRATROPIUM/ALBUTEROL 0.5-2.5 MG/3 ML AMPUL NEB SCH ×5 (08:31→23:41)
[2017-04-16] MEDS: FLUTICASONE NASAL SPRAY 50 MCG/SPRY 120 SPRAY/16 GM NASL SCH (10:15)
[2017-04-16] MEDS: FLUTICASONE/SALMETEROL DISKUS 250-50 MCG/DOSE IH SCH ×2 (10:16→22:24)
[2017-04-16] MEDS ORDERED: IPRATROPIUM/ALBUTEROL 0.5-2.5 MG/3 ML AMPUL NEB PRN (13:35)
[2017-04-16] MEDS ORDERED: HYDROCORTISONE ACETATE 25 MG SUPP.RECT PR PRN (13:36)
[2017-04-16] MEDS: IPRATROPIUM/ALBUTEROL 120 PUFF/4 GM MDI IH SCH ×2 (13:40→22:25)
[2017-04-16] MEDS: METHYLPREDNISOLONE INJ 125 MG/2 ML SDV IV SCH ×2 (13:40→22:25)
[2017-04-17] MEDS: IPRATROPIUM/ALBUTEROL 0.5-2.5 MG/3 ML AMPUL NEB SCH ×6 (03:24→23:25)
[2017-04-17] MEDS: IBUPROFEN 400 MG TABLET PO PRN ×2 (04:01→14:31)
[2017-04-17] MEDS: ACETAMINOPHEN 325 MG TABLET PO PRN (06:30)
[2017-04-17] MEDS: HEPARIN SOD (PORCINE) 5,000 UNIT/ML 1 ML SYRINGE SUBCUT SCH ×3 (06:31→21:51)
[2017-04-17] MEDS: METHYLPREDNISOLONE INJ 125 MG/2 ML SDV IV SCH (06:31)
[2017-04-17] MEDS: IPRATROPIUM/ALBUTEROL 120 PUFF/4 GM MDI IH SCH ×3 (06:31→21:47)
[2017-04-17] MEDS: LANSOPRAZOLE 30 MG TAB.RAP.DR PO SCH ×2 (06:31→16:54)
[2017-04-17] MEDS ORDERED: ONDANSETRON HCL INJ/PF 4 MG/2 ML SDV ONE (07:26)
[2017-04-17] MEDS ORDERED: KETOROLAC TROMETHAMINE INJ/PF 30 MG/1 ML SDV ONE (08:51)
[2017-04-17] MEDS: BUTALB/ACETAMINOPHEN/CAFFEINE 1 TAB EACH PO PRN ×2 (09:57→16:52)
[2017-04-17] MEDS: FLUTICASONE NASAL SPRAY 50 MCG/SPRY 120 SPRAY/16 GM NASL SCH (09:58)
[2017-04-17] MEDS: FLUTICASONE/SALMETEROL DISKUS 250-50 MCG/DOSE IH SCH ×2 (09:58→21:47)
[2017-04-17] MEDS ORDERED: KETOROLAC TROMETHAMINE INJ/PF 30 MG/1 ML SDV IV ONE (10:30)
[2017-04-17] MEDS ORDERED: AZITHROMYCIN 250 MG TABLET PO ONE (10:30)
--- NOTE | 2017-04-17 11:20 | PDOC PROGRESS REPORT ---
Subjective Progress Note for:: 04/17/17 Subjective:: Patient is seen on morning rounds. She is sitting on the side of the bed complaining of a migraine headache this morning She state she thinks the steroids trigger them because the same thing occurred last time she was here. She states her wheezing is improved. She has had a productive cough overnight raising thick yellow secretions. She denies any fever or chills. She was mildly nauseated with the headache. She verbalizes no other complaints at the present time. Physical Exam Vital Signs: Temp Pulse Resp BP Pulse Ox 98.7 F 92 16 136/79 H 98 04/17/17 07:36 04/17/17 08:57 04/17/17 08:57 04/17/17 07:36 04/17/17 08:57 Intake & Output 04/16/17 04/17/17 04/18/17 06:59 06:59 06:59 Intake Total 0 1171 Balance 0 1171 Weight 106.2 kg 105.6 kg General appearance: PRESENT: no acute distress, obese, well-developed, well- nourished Head exam: PRESENT: atraumatic, normocephalic Eye exam: PRESENT: conjunctiva pink, EOMI, PERRLA. ABSENT: scleral icterus Ear exam: PRESENT: normal external ear exam Neck exam: ABSENT: carotid bruit, JVD, lymphadenopathy, thyromegaly Respiratory exam: PRESENT: symmetrical, unlabored, wheezes - mild expiratory but improving Cardiovascular exam: PRESENT: RRR. ABSENT: diastolic murmur, rubs, systolic murmur Pulses: PRESENT: normal dorsalis pedis pul Vascular exam: PRESENT: normal capillary refill GI/Abdominal exam: PRESENT: normal bowel sounds, soft. ABSENT: distended, guarding, mass, organolmegaly, rebound, tenderness Rectal exam: PRESENT: deferred Extremities exam: PRESENT: full ROM. ABSENT: calf tenderness, clubbing, pedal edema Neurological exam: PRESENT: alert Psychiatric exam: PRESENT: appropriate affect, normal mood. ABSENT: homicidal ideation, suicidal ideation Skin exam: PRESENT: dry, intact, warm. ABSENT: cyanosis, rash Results Impressions: Chest X-Ray 04/16/17 01:11 IMPRESSION: NO ACUTE RADIOGRAPHIC FINDING IN THE CHEST. Assessment & Plan - Diagnosis (1) Acute severe exacerbation of asthma Is this a current diagnosis for this admission?: Yes (2) GERD (gastroesophageal reflux disease) Is this a current diagnosis for this admission?: Yes (4) Migraine Qualifiers: Migraine type: without aura Intractability: not intractable Is this a current diagnosis for this admission?: YesPlan: Patient was given one dose of IV toradol with resolutions of her headache - Time Time Spent with patient: 25-34 minutes Critical Time spent with patient: 25-34 minutes Smoking Cessation Education: 3 to 10 minutes Medications reviewed and adjusted accordingly: Yes Anticipated discharge: Home Within: within 24 hours
[2017-04-17] MEDS: PREDNISONE 20 MG TABLET PO SCH (16:53)
[2017-04-18] MEDS ORDERED: DIPHENHYDRAMINE HCL 25 MG CAPSULE PO ONE (00:30)
[2017-04-18] MEDS: IBUPROFEN 400 MG TABLET PO PRN ×2 (01:51→19:58)
[2017-04-18] MEDS: ACETAMINOPHEN 325 MG TABLET PO PRN ×2 (03:50→10:36)
[2017-04-18] MEDS: IPRATROPIUM/ALBUTEROL 0.5-2.5 MG/3 ML AMPUL NEB SCH ×6 (03:54→23:33)
[2017-04-18] MEDS: HEPARIN SOD (PORCINE) 5,000 UNIT/ML 1 ML SYRINGE SUBCUT SCH ×3 (06:13→22:09)
[2017-04-18] MEDS: IPRATROPIUM/ALBUTEROL 120 PUFF/4 GM MDI IH SCH ×3 (06:26→22:08)
[2017-04-18] MEDS: LANSOPRAZOLE 30 MG TAB.RAP.DR PO SCH ×2 (06:27→15:59)
[2017-04-18] MEDS ORDERED: FLUCONAZOLE 100 MG TABLET PO ONE (09:40)
[2017-04-18] MEDS ORDERED: BUDESONIDE NEB 0.5 MG/2 ML AMPUL NEB ONE (10:00)
[2017-04-18] MEDS: AZITHROMYCIN 250 MG TABLET PO SCH (10:35)
[2017-04-18] MEDS: PREDNISONE 20 MG TABLET PO SCH (10:35)
[2017-04-18] MEDS: FLUTICASONE/SALMETEROL DISKUS 250-50 MCG/DOSE IH SCH ×2 (10:38→22:07)
[2017-04-18] MEDS: FLUTICASONE NASAL SPRAY 50 MCG/SPRY 120 SPRAY/16 GM NASL SCH (10:38)
--- NOTE | 2017-04-18 12:34 | PDOC PROGRESS REPORT ---
Subjective Progress Note for:: 04/18/17 Subjective:: Patient is seen on morning rounds. She is resting in bed having a nebulizer treatment at the present times. She states her wheezing is impr. She has had a productive cough overnight raising thick yellow secretions. She denies any fever or chills. She is complaining of some vaginal itching and discharge that began this morning. She verbalizes no other complaints at the present time. Physical Exam Vital Signs: Temp Pulse Resp BP Pulse Ox 98.5 F 80 16 130/89 H 96 04/18/17 07:28 04/18/17 08:47 04/18/17 08:47 04/18/17 07:28 04/18/17 08:47 Intake & Output 04/17/17 04/18/17 04/19/17 06:59 06:59 06:59 Intake Total 1171 1352 Balance 1171 1352 Weight 105.6 kg 106.9 kg General appearance: PRESENT: no acute distress, obese, well-developed, well- nourished Head exam: PRESENT: atraumatic, normocephalic Eye exam: PRESENT: conjunctiva pink, EOMI, PERRLA. ABSENT: scleral icterus Ear exam: PRESENT: normal external ear exam Mouth exam: PRESENT: moist, tongue midline Neck exam: ABSENT: carotid bruit, JVD, lymphadenopathy, thyromegaly Respiratory exam: PRESENT: symmetrical, unlabored, wheezes - Expiratory bilateral Cardiovascular exam: PRESENT: RRR. ABSENT: diastolic murmur, rubs, systolic murmur Pulses: PRESENT: normal dorsalis pedis pul Vascular exam: PRESENT: normal capillary refill GI/Abdominal exam: PRESENT: normal bowel sounds, soft. ABSENT: distended, guarding, mass, organolmegaly, rebound, tenderness Rectal exam: PRESENT: deferred Extremities exam: PRESENT: full ROM. ABSENT: calf tenderness, clubbing, pedal edema Musculoskeletal exam: PRESENT: ambulatory, full ROM, normal inspection Neurological exam: PRESENT: alert, awake, oriented to person, oriented to place , oriented to time, oriented to situation, CN II-XII grossly intact. ABSENT: motor sensory deficit Psychiatric exam: PRESENT: appropriate affect, normal mood. ABSENT: homicidal ideation, suicidal ideation Skin exam: PRESENT: dry, intact, warm. ABSENT: cyanosis, rash Results Impressions: Chest X-Ray 04/16/17 01:11 IMPRESSION: NO ACUTE RADIOGRAPHIC FINDING IN THE CHEST. Assessment & Plan - Diagnosis (1) Acute severe exacerbation of asthma Is this a current diagnosis for this admission?: YesPlan: Continue antibiotics, oral prednisone, and will add Pulmicort nebulizers today (2) GERD (gastroesophageal reflux disease) Is this a current diagnosis for this admission?: Yes (3) Tobacco abuse Is this a current diagnosis for this admission?: Yes (4) Migraine Qualifiers: Migraine type: without aura Intractability: not intractable Is this a current diagnosis for this admission?: YesPlan: Patient states she did have one mild CERRATO last night - Time Time Spent with patient: 25-34 minutes Critical Time spent with patient: 25-34 minutes Smoking Cessation Education: 3 to 10 minutes Medications reviewed and adjusted accordingly: Yes Anticipated discharge: Home Within: within 24 hours
[2017-04-18] MEDS: BUTALB/ACETAMINOPHEN/CAFFEINE 1 TAB EACH PO PRN (15:20)
[2017-04-18] MEDS: BUDESONIDE NEB 0.5 MG/2 ML AMPUL NEB SCH (20:00)
[2017-04-19] MEDS ORDERED: DIPHENHYDRAMINE HCL 25 MG CAPSULE PO ONE (00:30)
[2017-04-19] MEDS: ACETAMINOPHEN 325 MG TABLET PO PRN (00:33)
[2017-04-19] MEDS: IPRATROPIUM/ALBUTEROL 0.5-2.5 MG/3 ML AMPUL NEB SCH ×2 (03:28→08:44)
[2017-04-19] MEDS: IBUPROFEN 400 MG TABLET PO PRN (04:43)
[2017-04-19] MEDS: IPRATROPIUM/ALBUTEROL 120 PUFF/4 GM MDI IH SCH (05:33)
[2017-04-19] MEDS: LANSOPRAZOLE 30 MG TAB.RAP.DR PO SCH (05:35)
[2017-04-19] MEDS: HEPARIN SOD (PORCINE) 5,000 UNIT/ML 1 ML SYRINGE SUBCUT SCH (05:35)
[2017-04-19] MEDS: BUDESONIDE NEB 0.5 MG/2 ML AMPUL NEB SCH (08:44)
[2017-04-19] MEDS ORDERED: CHLORPHENIRAMINE MALEATE 4 MG TABLET PO PRN (08:57)
[2017-04-19] MEDS: FLUTICASONE NASAL SPRAY 50 MCG/SPRY 120 SPRAY/16 GM NASL SCH (09:47)
[2017-04-19] MEDS: AZITHROMYCIN 250 MG TABLET PO SCH (09:47)
[2017-04-19] MEDS: PREDNISONE 20 MG TABLET PO SCH (09:48)
[2017-04-19] MEDS ORDERED: FLUTICASONE/SALMETEROL DISKUS 500-50 MCG/DOSE IH SCH (10:00)
[2017-04-19 11:02] VITALS: BP 144/84
--- NOTE | 2017-04-19 12:39 | PDOC DISCHARGE SUMMARY ---
General - Admit/Disc Date/PCP Admission Date/Primary Care Provider: 04/16/17 04:31 Discharge Date: 04/19/17 - Discharge Diagnosis (1) Acute severe exacerbation of asthma Is this a current diagnosis for this admission?: YesSummary: Will continue azithromycin, prednisone, Advair, and albuterol (2) GERD (gastroesophageal reflux disease) Is this a current diagnosis for this admission?: YesSummary: Continue PPI therapy (3) Tobacco abuse Is this a current diagnosis for this admission?: YesSummary: Counseled. She is attempting to quit (4) Migraine Is this a current diagnosis for this admission?: YesSummary: Fiorcet prn - Additional Information Resuscitation Status: Full Code Discharge Diet: Regular Discharge Activity: Activity As Tolerated, Balance Activity w/Rest, Slowly Increase Activity Home Medications: Albuterol Sulfate [Albuterol Sulfate 2.5mg/3 mL] 1 vial IH Q4HP PRN 04/16/17 Albuterol Sulfate [Ventolin HFA MDI 18 GM] 2 puff IH Q4HP PRN 04/16/17 Acetaminophen [Tylenol 325 mg Tablet] 650 mg PO Q4HP PRN tablet 04/19/17 Azithromycin [Zithromax 250 mg Tablet] 250 mg PO DAILY #3 tablet 04/19/17 Chlorpheniramine Maleate [Chlor-Trimeton 4 mg Tablet] 4 mg PO Q6HP PRN tablet 04/19/17 Fluticasone Propionate [Flonase Nasal [place] 50 Mcg/[place] 16 gm] 2 spray NASL DAILY spray.pump 04/19/17 Fluticasone/Salmeterol [Advair 500-50 Diskus 14 Dose/Diskus] 1 inh IH Q12 inhaler 04/19/17 Ibuprofen [Motrin 400 mg Tablet] 400 mg PO Q6HP PRN tablet 04/19/17 Ipratropium/Albuterol Sulfate [Combivent Respimat 4 gm Mdi] 1 puff IH Q8 aer.w.adap 04/19/17 Ipratropium/Albuterol Sulfate [Duoneb 3 ml Ampul] 3 ml NEB Q6HP PRN #90 vial 03/29 Prednisone [Deltasone 20 mg Tablet] 20 mg PO ASDIR PRN #9 tablet 04/19/17 History of Present Illness Patient complains of: Wheezing and cough History of Present Illness: ISHA REDMOND is a 41 year old female Hospital Course Hospital Course: Patient was admitted to [facility] on telemetry. She was started on IV steroids, broad spectrum antibiotics and nebulizer treatments. She continued to improve slowly over the next 3 days. She did have some mild wheezing after IV steroids were changed to oral prednisone. Pulmicort nebulizers were added which resolved any further wheezing. She feels improved today. Physical Exam Vital Signs: Temp Pulse Resp BP Pulse Ox 97.6 F 62 20 144/84 H 98 04/19/17 10:32 04/19/17 10:32 04/19/17 10:32 04/19/17 10:32 04/19/17 10:32 Intake & Output 04/18/17 04/19/17 04/20/17 06:59 06:59 06:59 Intake Total 1352 875 Balance 1352 875 Weight 106.9 kg 107.3 kg General appearance: PRESENT: no acute distress, obese, well-developed, well- nourished Head exam: PRESENT: atraumatic, normocephalic Eye exam: PRESENT: conjunctiva pink, EOMI, PERRLA. ABSENT: scleral icterus Ear exam: PRESENT: normal external ear exam Mouth exam: PRESENT: moist, tongue midline Neck exam: ABSENT: carotid bruit, JVD, lymphadenopathy, thyromegaly Respiratory exam: PRESENT: decreased breath sounds, symmetrical, unlabored Cardiovascular exam: PRESENT: RRR. ABSENT: diastolic murmur, rubs, systolic murmur Pulses: PRESENT: normal dorsalis pedis pul Vascular exam: PRESENT: normal capillary refill GI/Abdominal exam: PRESENT: normal bowel sounds, soft. ABSENT: distended, guarding, mass, organolmegaly, rebound, tenderness Rectal exam: PRESENT: deferred Extremities exam: PRESENT: full ROM. ABSENT: calf tenderness, clubbing, pedal edema Neurological exam: PRESENT: alert, awake, oriented to person, oriented to place , oriented to time, oriented to situation, CN II-XII grossly intact. ABSENT: motor sensory deficit Psychiatric exam: PRESENT: appropriate affect, normal mood. ABSENT: homicidal ideation, suicidal ideation Skin exam: PRESENT: dry, intact, warm. ABSENT: cyanosis, rash Results Impressions: Chest X-Ray 04/16/17 01:11 IMPRESSION: NO ACUTE RADIOGRAPHIC FINDING IN THE CHEST. Qualifiers PATEINT BEING DISCHARGED WITH ANY OF THE FOLLOWING DIAGNOSIS?: No Plan Discharge Plan: Discharge home with family Time Spent: Less than 30 Minutes
== END 2017-04-19 12:05 | disposition home or self-care (01) | DRG 203 ==
LOC: ER 00:59 → UNDOADMIN 03:38 → EH 03:38 → 3S 05:05 → EH 05:05
PROVIDERS: ADMIT Internal Medicine; ATTEND Internal Medicine
PROC: 3E0F73Z Introduction of Anti-inflammatory into Respiratory Tract, Via Natural or Artificial Opening (ICD-10-PCS; principal; 2017-04-16)
DX: J45.51 Severe persistent asthma with (acute) exacerbation (principal); K21.9 Gastro-esophageal reflux disease without esophagitis; G43.009 Migraine without aura, not intractable, without status migrainosus; E66.9 Obesity, unspecified; Z68.36 Body mass index [BMI] 36.0-36.9, adult; F32.9 Major depressive disorder, single episode, unspecified; F43.10 Post-traumatic stress disorder, unspecified; F17.210 Nicotine dependence, cigarettes, uncomplicated; F41.9 Anxiety disorder, unspecified; Z79.899 Other long term (current) drug therapy; Z88.6 Allergy status to analgesic agent; Z91.040 Latex allergy status; Z82.61 Family history of arthritis; Z83.3 Family history of diabetes mellitus; Z82.3 Family history of stroke; Z80.9 Family history of malignant neoplasm, unspecified; Z82.49 Family history of ischemic heart disease and other diseases of the circulatory system
CPT/HCPCS: 36415; 71010; 80048; 82803; 83880; 85025; 94640; 96365; 96375; 99291; J1644; J1885; J2405; J2930; J3475; J3490; J7512; J7620

== ENCOUNTER 2017-06-16 03:50 | Inpatient (IN) | payer SELFPAY ==
[2017-06-16] MEDS ORDERED: IPRATROPIUM/ALBUTEROL 0.5-2.5 MG/3 ML AMPUL NEB ONE ×3 (04:03→10:51)
--- NOTE | 2017-06-16 04:03 | ER Document Report ---
ED Respiratory Problem - General Mode of Arrival: Ambulatory Information source: Patient TRAVEL OUTSIDE OF THE [place] IN LAST 30 DAYS: No <DANA ROSA - Last Filed: 06/16/17 06:04> <STEPHANE WEBB - Last Filed: 06/16/17 11:41> - General Chief Complaint: Asthma Exacerbation Stated Complaint: BREATHING ISSUES Time Seen by Provider: 06/16/17 04:03 Notes: 41-year-old female with a long history of asthma started having back to back asthma attacks for 2 days. Her last albuterol nebulizer treatment was 3 hours ago. She has tachypnea pulse ox of 92% and moving very little air with expiratory wheezing bilateral. (DANA ROSA) - Related Data Allergies/Adverse Reactions: codeine Allergy (Verified 06/16/17 03:52) latex Allergy (Verified 06/16/17 03:52) RASH, SWOLLEN TONGUE Past Medical History - General Information source: Patient - Social History Smoking Status: Current Some Day Smoker Frequency of alcohol use: None Drug Abuse: None Lives with: Family Family History: Arthritis, CAD, CVA, DM, Hyperlipidemia, Hypertension, Malignancy, Thyroid Disfunction Patient has suicidal ideation: No Patient has homicidal ideation: No Pulmonary Medical History: Reports: Hx Asthma Renal/ Medical History: Denies: Hx Peritoneal Dialysis Psychiatric Medical History: Reports: Hx Anxiety, Hx Depression, Hx Post Traumatic Stress Disorder Past Surgical History: Reports: Hx Adenoidectomy, Hx Tonsillectomy, Hx Tubal Ligation - Immunizations Hx Diphtheria, Pertussis, Tetanus Vaccination: Yes <DANA ROSA - Last Filed: 06/16/17 06:04> Review of Systems - Review of Systems Constitutional: No symptoms reported EENT: No symptoms reported Cardiovascular: No symptoms reported Respiratory: See HPI Gastrointestinal: No symptoms reported Genitourinary: No symptoms reported Female Genitourinary: No symptoms reported Musculoskeletal: No symptoms reported Skin: No symptoms reported Hematologic/Lymphatic: No symptoms reported Neurological/Psychological: No symptoms reported <DANA ROSA - Last Filed: 06/16/17 06:04> Physical Exam - Vital signs Interpretation: Hypertensive, Tachycardic, Tachypneic - General General appearance: Appears well, Alert - HEENT Head: Normocephalic, Atraumatic Eyes: Normal Conjunctiva: Normal Pupils: PERRL Mucous membranes: Normal Pharynx: Normal Neck: Supple. No: Lymphadenopathy - Respiratory Respiratory status: Respiratory distress, Tachypnea, Other - leaning over the bed to breathe Chest status: Nontender, Accessory muscle use, Prolonged expirations Breath sounds: Wheezing - bilateral expiratory Chest palpation: Normal - Cardiovascular Rhythm: Regular Heart sounds: Normal auscultation Murmur: No - Abdominal Inspection: Normal Distension: No distension Bowel sounds: Normal Tenderness: Nontender Organomegaly: No organomegaly - Back Back: Normal, Nontender - Extremities General upper extremity: Normal inspection, Nontender, Normal color, Normal ROM , Normal temperature General lower extremity: Normal inspection, Nontender, Normal color, Normal ROM , Normal temperature, Normal weight bearing. No: Babatunde's sign - Neurological Neuro grossly intact: Yes Cognition: Normal Orientation: AAOx4 Amrik Coma Scale Eye Opening: Spontaneous Amrik Coma Scale Verbal: Oriented [place] Coma Scale Motor: Obeys Commands Amrik Coma Scale Total: 15 Speech: Normal Motor strength normal: LUE, RUE, LLE, RLE Sensory: Normal - Psychological Associated symptoms: Normal affect, Normal mood - Skin Skin Temperature: Warm Skin Moisture: Dry Skin Color: Normal Skin irregularity: negative: Rash <DANA ROSA - Last Filed: 06/16/17 06:04> - Vital signs Vitals: Temp Pulse Resp BP Pulse Ox 97.4 F 119 H 26 H 153/111 H 97 06/16/17 03:52 06/16/17 03:52 06/16/17 03:52 06/16/17 03:52 06/16/17 03:52 Course <DANA ROSA - Last Filed: 06/16/17 06:04> <STEPHANE WEBB - Last Filed: 06/16/17 11:41> - Re-evaluation Re-evalutation: 06/16/17 04:55 still has expiratory wheeze bilateral 06/16/17 06:54 Pulse ox drops to 89% when she was asleep I placed her on 3 L nasal cannula., Very minimal wheezing at this point. Magnesium is still being administered ( DANA ROSA) 06/16/17 11:40 CXR unremarkable Ambulatory O2 >95%, but at rest 89-97% range. Pt continues to have wheezing, tachypnea, and tachycardia 1 more duoneb treatment given motrin 600mg given per request of patient Decadron 10mg given IM Reviewed with Dr. Holland who agreed pt qualifies for admit spoke to Dr. Mejia who is the accepting hospitalist. Pt in agreement with admit/plan. (STEPHANE WEBB) - Vital Signs Vital signs: Temp Pulse Resp BP Pulse Ox 97.4 F 119 H 43 H 151/95 H 93 06/16/17 03:52 06/16/17 03:52 06/16/17 06:01 06/16/17 06:01 06/16/17 06:01 Discharge <DANA ROSA - Last Filed: 06/16/17 06:04> - Discharge Admitting Provider: Hospitalist - Dr. Mejia Unit Admitted: Telemetry <STEPHANE WEBB - Last Filed: 06/16/17 11:41> - Discharge Clinical Impression: Acute asthma exacerbation Qualifiers: Asthma severity: unspecified severity Asthma persistence: unspecified Qualified Code(s): J45.901 - Unspecified asthma with (acute) exacerbation Condition: Stable Disposition: ADMITTED INPATIENT
[2017-06-16] MEDS ORDERED: ALBUTEROL SULFATE 0.083% NEB 2.5 MG/3 ML AMPUL NEB ONE (04:04)
[2017-06-16] MEDS ORDERED: PREDNISONE 20 MG TABLET PO ONE (04:04)
[2017-06-16] MEDS ORDERED: ALBUTEROL SULFATE 0.083% NEB 2.5 MG/3 ML AMPUL NEB SCH (04:11)
[2017-06-16] MEDS ORDERED: NORMAL SALINE 1000 ML 500 ML IV ONE (04:55)
[2017-06-16] MEDS ORDERED: LEVALBUTEROL HCL NEB 0.63 MG/3 ML AMPUL NEB ONE (04:55)
[2017-06-16] MEDS ORDERED: ACETAMINOPHEN 325 MG TABLET PO ONE (05:19)
[2017-06-16] MEDS: MAGNESIUM SULFATE/D5W 1 GM/100 ML RTUPB IV SCH ×2 (06:14→07:00)
--- NOTE | 2017-06-16 08:21 | RADIOLOGY REPORT (SQ) ---
EXAM DESCRIPTION: CHEST PA/LAT COMPLETED DATE/TIME: 06/16/2017 5:45 am REASON FOR STUDY: asthma COMPARISON: 11/11/2016 EXAM PARAMETERS: NUMBER OF VIEWS: two views TECHNIQUE: Digital Frontal and Lateral radiographic views of the chest acquired. RADIATION DOSE: NA LIMITATIONS: none FINDINGS: LUNGS AND PLEURA: No opacities, masses or pneumothorax. No pleural effusion. MEDIASTINUM AND HILAR STRUCTURES: No masses or contour abnormalities. HEART AND VASCULAR STRUCTURES: Heart normal size. No evidence for failure. BONES: No acute findings. HARDWARE: None in the chest. OTHER: No other significant finding. IMPRESSION: NO SIGNIFICANT RADIOGRAPHIC FINDING IN THE CHEST. TECHNICAL DOCUMENTATION: JOB ID: [id number] [employer]- All Rights Reserved
[2017-06-16] MEDS ORDERED: DEXAMETHASONE SOD PHOS INJ 10 MG/1 ML VIAL IM ONE (10:52)
[2017-06-16] MEDS ORDERED: IBUPROFEN 600 MG TABLET PO ONE (10:53)
[2017-06-16] MEDS ORDERED: LEVALBUTEROL HCL NEB 1.25 MG/3 ML AMPUL NEB PRN (12:09)
[2017-06-16] MEDS ORDERED: ONDANSETRON HCL INJ/PF 4 MG/2 ML SDV IV PRN (12:09)
[2017-06-16] MEDS ORDERED: IPRATROPIUM BROMIDE 0.02% NEB 0.5 MG/2.5 ML AMPUL NEB PRN (13:00)
[2017-06-16] MEDS ORDERED: METHYLPREDNISOLONE INJ 125 MG/2 ML SDV IV ONE (13:00)
[2017-06-16 13:08] LABS: ANION GAP 13 (5-19); BLOOD UREA NITROGEN 12 mg/dL (7-20); CALCIUM 9.8 mg/dL (8.4-10.2); CARBON DIOXIDE 17 mmol/L (22-30); CHLORIDE 108 mmol/L (98-107); GLUCOSE 161 mg/dL (75-110); POTASSIUM 4.7 mmol/L (3.6-5.0); SODIUM 138.3 mmol/L (137-145)
--- NOTE | 2017-06-16 13:25 | PDOC H&P ---
History of Present Illness Admission Date/PCP: 06/16/17 11:47 Patient complains of: Shortness of breath and wheezing History of Present Illness: ISHA REDMOND is a 41 year old female, with history of asthma started to develop cough nonproductive with intermittent wheezing 4 days ago. There is no associated chills or fever. There is minimal sinus congestion and postnasal drip but no sore throat. The patient will use her inhalers at home affording temporary relief of symptoms. Symptoms however progressively got worse for the past 2 days patient will have bouts of coughing especially upon waking up in the morning. Also patient will have urinary incontinence upon coughing. Patient reports that every time it happens her asthma is bad and therefore she went to the hospital for evaluation where she was given multiple bronchodilators and steroids affording some relief of symptoms subsequently remained tachycardic with episodes of hypoxia in the 80s on oxygen saturation. Patient was then referred for admission. Patient when asked she reports improvement compared to when she arrived in the emergency room. Past Medical History Past Medical History: Medication reconciliation pending verification from the patient's pharmacist. Pulmonary Medical History: Reports: Asthma GI Medical History: Reports: Gastroesophageal Reflux Disease Psychiatric Medical History: Reports: Depression, Post Traumatic Stress Disorder Past Surgical History Past Surgical History: Reports: Adenoidectomy, Tonsillectomy, Tubal Ligation Social History Information Source: Patient Lives with: Family Smoking Status: Current Some Day Smoker Frequency of Alcohol Use: None Hx Recreational Drug Use: No Drugs: None Hx Prescription Drug Abuse: No Family History Family History: Arthritis, CAD, CVA, DM, Hyperlipidemia, Hypertension, Malignancy, Thyroid Disfunction Parental Family History Reviewed: Yes Children Family History Reviewed: Yes Sibling(s) Family History Reviewed.: Yes Medication/Allergy Home Medications: Albuterol Sulfate [Albuterol Sulfate 2.5mg/3 mL] 3 ml NEB Q2HP PRN 06/16/17 Albuterol Sulfate [Proair HFA Inhalation Aerosol 8.5 gm MDI] 1 puff IH Q4HP PRN 06/16/17 Fluticasone/Salmeterol [Advair 500-50 Diskus 14 Dose/Diskus] 1 puff IH Q12 06/16 Allergies/Adverse Reactions: codeine Allergy (Verified 06/16/17 03:52) latex Allergy (Verified 06/16/17 03:52) RASH, SWOLLEN TONGUE Review of Systems Constitutional: ABSENT: chills, fever(s), headache(s), night sweats, weakness, weight gain, weight loss Eyes: ABSENT: visual disturbances Ears: ABSENT: hearing changes Nose, Mouth, and Throat: ABSENT: mouth pain, sore throat, vertigo Cardiovascular: ABSENT: chest pain, dyspnea on exertion, edema, orthropnea, palpitations Respiratory: PRESENT: cough, dyspnea, sputum - Minimal. ABSENT: hemoptysis Gastrointestinal: ABSENT: abdominal pain, bloating, constipation, diarrhea, hematemesis, hematochezia, melena, nausea, vomiting Genitourinary: ABSENT: dysuria, hematuria Musculoskeletal: ABSENT: joint swelling Integumentary: ABSENT: pruritus, rash, wounds Neurological: ABSENT: abnormal gait, abnormal speech, confusion, dizziness, focal weakness, syncope Psychiatric: ABSENT: anxiety, depression, homidical ideation, suicidal ideation Endocrine: ABSENT: cold intolerance, heat intolerance, polydipsia, polyuria Hematologic/Lymphatic: ABSENT: easy bleeding, easy bruising Physical Exam Vital Signs: Temp Pulse Resp BP Pulse Ox 97.4 F 119 H 43 H 151/95 H 93 06/16/17 03:52 06/16/17 03:52 06/16/17 06:01 06/16/17 06:01 06/16/17 06:01 General appearance: PRESENT: no acute distress, morbidly obese, other - Speaks in complete sentences with minimal interruption Head exam: PRESENT: atraumatic, normocephalic Eye exam: PRESENT: conjunctiva pink, EOMI, PERRLA. ABSENT: scleral icterus Ear exam: PRESENT: normal external ear exam Mouth exam: PRESENT: moist, neck supple, tongue midline Throat exam: ABSENT: post pharyngeal erythema, tonsillar erythema Neck exam: ABSENT: carotid bruit, JVD, lymphadenopathy, thyromegaly Respiratory exam: PRESENT: clear to auscultation haritha, wheezes - Expiratory bilateral, other - Air exchange is fair. ABSENT: rales, rhonchi Cardiovascular exam: PRESENT: RRR, tachycardia. ABSENT: diastolic murmur, rubs , systolic murmur Pulses: PRESENT: normal dorsalis pedis pul Vascular exam: PRESENT: normal capillary refill GI/Abdominal exam: PRESENT: normal bowel sounds, soft. ABSENT: distended, guarding, mass, organolmegaly, rebound, tenderness Rectal exam: PRESENT: deferred Extremities exam: PRESENT: full ROM, other - Trace pretibial edema bilateral. ABSENT: calf tenderness, clubbing Neurological exam: PRESENT: alert, awake, oriented to person, oriented to place , oriented to time, oriented to situation Psychiatric exam: PRESENT: appropriate affect, normal mood. ABSENT: homicidal ideation, suicidal ideation Skin exam: PRESENT: dry, intact, warm. ABSENT: cyanosis, rash Results Laboratory Results: 06/16/17 12:34 06/16/17 12:34 Sodium 138.3 Potassium 4.7 Chloride 108 H Carbon Dioxide 17 L Anion Gap 13 BUN 12 Creatinine 0.70 Est GFR ( Amer) > 60 Est GFR (Non-Af Amer) > 60 Glucose 161 H Calcium 9.8 Impressions: Chest X-Ray 06/16/17 03:56 IMPRESSION: NO SIGNIFICANT RADIOGRAPHIC FINDING IN THE CHEST. Assessment & Plan - Diagnosis (1) Acute asthma exacerbation Qualifiers: Asthma severity: unspecified severity Asthma persistence: unspecified Qualified Code(s): J45.901 - Unspecified asthma with (acute) exacerbation Is this a current diagnosis for this admission?: Yes (2) GERD (gastroesophageal reflux disease) Qualifiers: Esophagitis presence: without esophagitis Qualified Code(s): K21.9 - Gastro -esophageal reflux disease without esophagitis Is this a current diagnosis for this admission?: Yes (3) Hx of anxiety disorder Is this a current diagnosis for this admission?: Yes (4) Migraine Qualifiers: Migraine type: without aura Intractability: not intractable Is this a current diagnosis for this admission?: Yes - Time Time Spent: 50 to 70 Minutes - Inpatient Certification Based on my medical assessment, after consideration of the patient's comorbidities, presenting symptoms, or acuity I expect that the services needed warrant INPATIENT care.: Yes I certify that my determination is in accordance with my understanding of Medicare's requirements for reasonable and necessary INPATIENT services [42 CFR 412.3e].: Yes Medical Necessity: Need Close Monitoring Due to Risk of Patient Decompensation, Need For Continuous Telemetry Monitoring, Need for Nebulizer Therapy and Monitoring of Response, Risk of Complication if Not Cared For in Hospital Post Hospital Care: D/C Parole Board Member Documentation - Plan Summary Plan Summary: The patient will be admitted to telemetry. He will be on supplemental oxygen and DVT prophylaxis. I will put the patient on intravenous steroid and around- the-clock nebulizers and as needed beta-2 agonist. I will put the patient empirically on antibiotic. Patient reports symptoms of acid reflux intermittently may cause nocturnal symptoms. I will put her on proton pump inhibitor. Further testing depends on the initial evaluations outlined above.
[2017-06-16] MEDS: LEVALBUTEROL HCL NEB 1.25 MG/3 ML AMPUL NEB SCH ×2 (13:32→20:08)
[2017-06-16] MEDS ORDERED: INFLUENZA ADLT QUAD (36MOS+) 2017-18 VAC 0.5 ML SYR IM PRN (13:54)
[2017-06-16] MEDS ORDERED: LEVOFLOXACIN 750 MG TABLET PO ONE (14:00)
[2017-06-16] MEDS ORDERED: ENOXAPARIN SODIUM INJ 40 MG/0.4 ML DISP.SYRIN SUBCUT ONE ×2 (14:00)
[2017-06-16] MEDS ORDERED: DIPHENHYDRAMINE HCL 25 MG CAPSULE PO PRN (15:34)
[2017-06-16] MEDS: BUTALB/ACETAMINOPHEN/CAFFEINE 1 TAB EACH PO PRN (17:22)
[2017-06-16] MEDS: LANSOPRAZOLE 30 MG TAB.RAP.DR PO SCH (17:22)
[2017-06-16] MEDS: METHYLPREDNISOLONE INJ 125 MG/2 ML SDV IV SCH (17:23)
[2017-06-16] MEDS: ACETAMINOPHEN 325 MG TABLET PO PRN (19:46)
[2017-06-16] MEDS: IPRATROPIUM BROMIDE 0.02% NEB 0.5 MG/2.5 ML AMPUL NEB SCH (20:20)
[2017-06-17] MEDS: BUTALB/ACETAMINOPHEN/CAFFEINE 1 TAB EACH PO PRN ×4 (00:27→21:19)
[2017-06-17] MEDS: METHYLPREDNISOLONE INJ 125 MG/2 ML SDV IV SCH ×5 (00:27→23:21)
[2017-06-17] MEDS: IPRATROPIUM BROMIDE 0.02% NEB 0.5 MG/2.5 ML AMPUL NEB SCH ×4 (01:46→19:42)
[2017-06-17] MEDS: LEVALBUTEROL HCL NEB 1.25 MG/3 ML AMPUL NEB SCH ×4 (01:46→19:43)
[2017-06-17] MEDS: LANSOPRAZOLE 30 MG TAB.RAP.DR PO SCH ×2 (05:24→17:05)
[2017-06-17 05:28] LABS: ABSOLUTE LYMPHOCYTES (AUTO) 0.9 10^3/uL (0.5-4.7); ABSOLUTE MONOCYTES (AUTO) 0.2 10^3/uL (0.1-1.4); ABSOLUTE NEUT (AUTO) 13.2 10^3/uL (1.7-8.2); BASOPHILS % (AUTO) 0.3 % (0-2); EOSINOPHILS % (AUTO) 0.1 % (0-6); HEMATOCRIT 40.3 % (36.0-47.0); HEMOGLOBIN 13.5 g/dL (12.0-15.5); HGB HCT DIFFERENCE 0.2; LYMPHOCYTES % (AUTO) 6.2 % (13-45); MEAN CORPUSCULAR HEMOGLOBIN 29.3 pg (27.0-33.4); MEAN CORPUSCULAR HGB CONC 33.5 g/dL (32.0-36.0); MEAN CORPUSCULAR VOLUME 87 fl (80-97); MONOCYTES % (AUTO) 1.5 % (3-13); RED BLOOD COUNT 4.62 10^6/uL (3.72-5.28); RED CELL DISTRIBUTION WIDTH 14.5 % (11.5-14.0); SEGMENTED NEUTROPHILS % (AUTO) 91.9 % (42-78); WHITE BLOOD COUNT 14.4 10^3/uL (4.0-10.5)
[2017-06-17] MEDS: LEVOFLOXACIN 750 MG TABLET PO SCH (09:57)
[2017-06-17] MEDS: ENOXAPARIN SODIUM INJ 40 MG/0.4 ML DISP.SYRIN SUBCUT SCH (09:59)
[2017-06-17] MEDS: FLUTICASONE NASAL SPRAY 50 MCG/SPRY 120 SPRAY/16 GM NASL PRN (10:01)
--- NOTE | 2017-06-17 10:41 | PDOC PROGRESS REPORT ---
Subjective Progress Note for:: 06/17/17 Subjective:: Shortness of breath is better. Wheezing is less. No chills or fever. No pleurisy but still having paroxysmal coughing. Patient complains of a headache from migraine. Physical Exam Vital Signs: Temp Pulse Resp BP Pulse Ox 98.4 F 84 16 152/81 H 100 06/17/17 08:07 06/17/17 08:07 06/17/17 08:07 06/17/17 08:07 06/17/17 08:07 Intake & Output 06/16/17 06/17/17 06/18/17 06:59 06:59 06:59 Intake Total 1320 Output Total 1100 Balance 220 Weight 100 kg General appearance: PRESENT: no acute distress, cooperative, obese Head exam: PRESENT: normocephalic Eye exam: PRESENT: EOMI Mouth exam: PRESENT: moist, neck supple Neck exam: ABSENT: JVD Respiratory exam: PRESENT: unlabored, wheezes - Minimal and improved. ABSENT: rhonchi Cardiovascular exam: PRESENT: RRR. ABSENT: gallop GI/Abdominal exam: PRESENT: soft. ABSENT: distended, tenderness Extremities exam: ABSENT: pedal edema Neurological exam: PRESENT: alert, awake, oriented to situation Results Laboratory Results: 06/17/17 04:09 06/16/17 12:34 06/16/17 06/17/17 06/17/17 12:34 04:09 04:09 WBC 14.4 H RBC 4.62 Hgb 13.5 Hct 40.3 MCV 87 MCH 29.3 MCHC 33.5 RDW 14.5 H Plt Count 262 Seg Neutrophils % 91.9 H Lymphocytes % 6.2 L Monocytes % 1.5 L Eosinophils % 0.1 Basophils % 0.3 Absolute Neutrophils 13.2 H Absolute Lymphocytes 0.9 Absolute Monocytes 0.2 Absolute Eosinophils 0.0 Absolute Basophils 0.0 Sodium 138.3 Potassium 4.7 Chloride 108 H Carbon Dioxide 17 L Anion Gap 13 BUN 12 Creatinine 0.70 Est GFR ( Amer) > 60 Est GFR (Non-Af Amer) > 60 Glucose 161 H Calcium 9.8 Magnesium 2.2 Impressions: Chest X-Ray 06/16/17 03:56 IMPRESSION: NO SIGNIFICANT RADIOGRAPHIC FINDING IN THE CHEST. Assessment & Plan - Diagnosis (1) Acute asthma exacerbation Qualifiers: Asthma severity: unspecified severity Asthma persistence: unspecified Qualified Code(s): J45.901 - Unspecified asthma with (acute) exacerbation Is this a current diagnosis for this admission?: Yes (2) GERD (gastroesophageal reflux disease) Qualifiers: Esophagitis presence: without esophagitis Qualified Code(s): K21.9 - Gastro -esophageal reflux disease without esophagitis Is this a current diagnosis for this admission?: Yes (3) Hx of anxiety disorder Is this a current diagnosis for this admission?: Yes (4) Migraine Qualifiers: Migraine type: without aura Intractability: not intractable Is this a current diagnosis for this admission?: Yes - Time Time Spent with patient: 15-24 minutes - Plan Summary Plan Summary: Continue bronchodilators and steroids. We will try patient on ibuprofen and monitor for wheezing. Patient reports that she had taken it for multiple years. Without any problem. We will give Tessalon Perles as needed.
[2017-06-17] MEDS ORDERED: BENZONATATE 100 MG CAPSULE PO ONE (11:00)
[2017-06-17] MEDS: IBUPROFEN 600 MG TABLET PO PRN ×2 (11:05→17:05)
[2017-06-17] MEDS: BENZONATATE 100 MG CAPSULE PO SCH ×2 (14:36→21:16)
[2017-06-18] MEDS: DIPHENHYDRAMINE HCL 25 MG CAPSULE PO SCH (01:46)
[2017-06-18] MEDS: IBUPROFEN 600 MG TABLET PO PRN ×2 (01:46→14:24)
[2017-06-18] MEDS: IPRATROPIUM BROMIDE 0.02% NEB 0.5 MG/2.5 ML AMPUL NEB SCH ×4 (01:59→19:51)
[2017-06-18] MEDS: LEVALBUTEROL HCL NEB 1.25 MG/3 ML AMPUL NEB SCH ×4 (01:59→19:51)
[2017-06-18] MEDS: BENZONATATE 100 MG CAPSULE PO SCH ×3 (06:40→21:23)
[2017-06-18] MEDS: LANSOPRAZOLE 30 MG TAB.RAP.DR PO SCH ×2 (06:40→17:25)
[2017-06-18] MEDS: METHYLPREDNISOLONE INJ 125 MG/2 ML SDV IV SCH (06:41)
[2017-06-18] MEDS: ACETAMINOPHEN 325 MG TABLET PO PRN (06:44)
--- NOTE | 2017-06-18 08:22 | PDOC PROGRESS REPORT ---
Subjective Progress Note for:: 06/18/17 Subjective:: Headache persist worse on coughing. No reported fever, chills, increasing SOB nor CP. No diarrhea nausea nor vomiting. Physical Exam Vital Signs: Temp Pulse Resp BP Pulse Ox 98.6 F 73 20 119/96 H 99 06/17/17 23:00 06/18/17 07:00 06/18/17 02:00 06/17/17 23:00 06/17/17 23:00 Intake & Output 06/17/17 06/18/17 06/19/17 06:59 06:59 06:59 Intake Total 1320 1300 Output Total 1100 760 Balance 220 540 Weight 100 kg 100 kg General appearance: PRESENT: no acute distress, cooperative, morbidly obese Head exam: PRESENT: normocephalic Eye exam: PRESENT: EOMI Mouth exam: PRESENT: moist, neck supple Neck exam: ABSENT: JVD Respiratory exam: PRESENT: unlabored, wheezes - significantly less. ABSENT: retraction, rhonchi Cardiovascular exam: PRESENT: RRR. ABSENT: gallop GI/Abdominal exam: PRESENT: soft. ABSENT: distended, tenderness Extremities exam: ABSENT: pedal edema Neurological exam: PRESENT: alert, awake, oriented to situation Skin exam: PRESENT: dry, warm. ABSENT: cyanosis Results Laboratory Results: 06/17/17 04:09 06/16/17 12:34 Impressions: Chest X-Ray 06/16/17 03:56 IMPRESSION: NO SIGNIFICANT RADIOGRAPHIC FINDING IN THE CHEST. Assessment & Plan - Diagnosis (1) Acute asthma exacerbation Qualifiers: Asthma severity: unspecified severity Asthma persistence: unspecified Qualified Code(s): J45.901 - Unspecified asthma with (acute) exacerbation Is this a current diagnosis for this admission?: Yes (2) GERD (gastroesophageal reflux disease) Qualifiers: Esophagitis presence: without esophagitis Qualified Code(s): K21.9 - Gastro -esophageal reflux disease without esophagitis Is this a current diagnosis for this admission?: Yes (3) Hx of anxiety disorder Is this a current diagnosis for this admission?: Yes (4) Migraine Qualifiers: Migraine type: without aura Intractability: not intractable Is this a current diagnosis for this admission?: Yes - Time Time Spent with patient: 25-34 minutes - Plan Summary Plan Summary: Transition to oral steroids. Begin advair. Try ultram for headache. Continue bronchodilators. Check head CT w/o contrast.
[2017-06-18] MEDS: PREDNISONE 20 MG TABLET PO SCH (08:56)
[2017-06-18] MEDS: FLUTICASONE NASAL SPRAY 50 MCG/SPRY 120 SPRAY/16 GM NASL PRN (08:59)
[2017-06-18] MEDS ORDERED: TRAMADOL HCL 50 MG TABLET PO ONE (09:00)
[2017-06-18] MEDS ORDERED: FLUTICASONE/SALMETEROL DISKUS 250-50 MCG/DOSE IH ONE (09:00)
--- NOTE | 2017-06-18 09:33 | RADIOLOGY REPORT (SQ) ---
EXAM DESCRIPTION: CT HEAD WITHOUT COMPLETED DATE/TIME: 06/18/2017 9:21 am REASON FOR STUDY: headache COMPARISON: CT brain 03/24/2016 TECHNIQUE: Axial images acquired through the brain without intravenous contrast. Images reviewed wi th bone, brain and subdural windows. Images stored on PACS. All CT scanners at this facility use dose modulation, iterative reconstruction, and/or weight based d osing when appropriate to reduce radiation dose to as low as reasonably achievable (ALARA). [facility]: Dose Right [facility]: CareDose [facility]: Dose Right [facility]: Teradose 4D [facility]: Smart [facility] RADIATION DOSE: Up-to-date CT equipment and radiation dose reduction techniques were employed. CTDIv ol: 49.0 mGy. DLP: 783 mGy-cm. mGy. LIMITATIONS: None. FINDINGS: VENTRICLES: Normal size and contour. CEREBRUM: No masses. No hemorrhage. No midline shift. No evidence for acute infarction. Normal gra y/white matter differentiation. No areas of low density in the white matter. CEREBELLUM: No masses. No hemorrhage. No alteration of density. No evidence for acute infarction. EXTRAAXIAL SPACES: No fluid collections. No masses. ORBITS AND GLOBE: No intra- or extraconal masses. Normal contour of globe without masses. CALVARIUM: No fracture. PARANASAL SINUSES: Trace fluid right sphenoid sinus. SOFT TISSUES: No mass or hematoma. OTHER: No other significant finding. IMPRESSION: NORMAL BRAIN CT WITHOUT CONTRAST. Trace fluid right sphenoid sinus from inflammatory change EVIDENCE OF ACUTE STROKE: NO. COMMENT: Quality ID # [id number]: Final reports with documentation of one or more dose reduction techniques (e.g., Automated exposure control, adjustment of the mA and/or kV according to patient size, use of iterative reconstruction technique) TECHNICAL DOCUMENTATION: JOB ID: [id number]- All Rights Reserved
[2017-06-18] MEDS: LEVOFLOXACIN 750 MG TABLET PO SCH (09:53)
[2017-06-18] MEDS: ENOXAPARIN SODIUM INJ 40 MG/0.4 ML DISP.SYRIN SUBCUT SCH (09:54)
[2017-06-18] MEDS: BUTALB/ACETAMINOPHEN/CAFFEINE 1 TAB EACH PO PRN ×2 (10:19→18:12)
[2017-06-18] MEDS: FLUTICASONE/SALMETEROL DISKUS 250-50 MCG/DOSE IH SCH (21:24)
[2017-06-19] MEDS: IPRATROPIUM BROMIDE 0.02% NEB 0.5 MG/2.5 ML AMPUL NEB SCH ×3 (02:02→13:52)
[2017-06-19] MEDS: LEVALBUTEROL HCL NEB 1.25 MG/3 ML AMPUL NEB SCH ×3 (02:02→13:52)
[2017-06-19] MEDS: IBUPROFEN 600 MG TABLET PO PRN ×2 (02:11→12:54)
[2017-06-19] MEDS: DIPHENHYDRAMINE HCL 25 MG CAPSULE PO SCH (02:11)
[2017-06-19] MEDS: BENZONATATE 100 MG CAPSULE PO SCH ×2 (05:45→12:56)
[2017-06-19] MEDS: LANSOPRAZOLE 30 MG TAB.RAP.DR PO SCH (05:46)
[2017-06-19] MEDS: BUTALB/ACETAMINOPHEN/CAFFEINE 1 TAB EACH PO PRN (08:08)
[2017-06-19] MEDS: FLUTICASONE/SALMETEROL DISKUS 250-50 MCG/DOSE IH SCH (09:04)
[2017-06-19] MEDS: PREDNISONE 20 MG TABLET PO SCH (09:04)
[2017-06-19] MEDS: LEVOFLOXACIN 750 MG TABLET PO SCH (09:04)
[2017-06-19] MEDS: ENOXAPARIN SODIUM INJ 40 MG/0.4 ML DISP.SYRIN SUBCUT SCH (09:05)
--- NOTE | 2017-06-19 10:57 | PDOC DISCHARGE SUMMARY ---
General - Admit/Disc Date/PCP Admission Date/Primary Care Provider: 06/16/17 12:09 Discharge Date: 06/19/17 - Discharge Diagnosis (1) Acute asthma exacerbation Is this a current diagnosis for this admission?: Yes (2) Sphenoid sinusitis Is this a current diagnosis for this admission?: Yes (3) GERD (gastroesophageal reflux disease) Is this a current diagnosis for this admission?: Yes (4) Hx of anxiety disorder Is this a current diagnosis for this admission?: Yes (5) Migraine Is this a current diagnosis for this admission?: Yes - Additional Information Discharge Diet: Cardiac - Low-fat low-salt Discharge Activity: Activity As Tolerated, Balance Activity w/Rest, Slowly Increase Activity Home Medications: Albuterol Sulfate [Albuterol Sulfate 2.5mg/3 mL] 3 ml NEB Q2HP PRN 06/16/17 Albuterol Sulfate [Proair HFA Inhalation Aerosol 8.5 gm MDI] 1 puff IH Q4HP PRN #1 hfa.aer.[id number] 06/19/17 Benzonatate [Tessalon Perles 100 mg Capsule] 200 mg PO Q8 PRN #30 capsule Fluticasone/Salmeterol [Advair 500-50 Diskus 14 Dose/Diskus] 1 puff IH Q12 #1 inhaler 06/19/17 Levofloxacin [Levaquin 750 mg Tablet] 750 mg PO DAILY #8 tablet 06/19/17 Prednisone [Sterapred Ds] 1 pkg PO ASDIR PRN 12 Days tab.ds.pk 06/19/17 Additional Information: Return to the emergency room if symptoms worsens. Return to work in 3-5 days. History of Present Illness Patient complains of: Shortness of breath and wheezing History of Present Illness: ISHA REDMOND is a 41 year old female, with history of asthma started to develop cough nonproductive with intermittent wheezing 4 days ago. There is no associated chills or fever. There is minimal sinus congestion and postnasal drip but no sore throat. The patient will use her inhalers at home affording temporary relief of symptoms. Symptoms however progressively got worse for the past 2 days patient will have bouts of coughing especially upon waking up in the morning. Also patient will have urinary incontinence upon coughing. Patient reports that every time it happens her asthma is bad and therefore she went to the hospital for evaluation where she was given multiple bronchodilators and steroids affording some relief of symptoms subsequently remained tachycardic with episodes of hypoxia in the 80s on oxygen saturation. Patient was then referred for admission. Patient when asked she reports improvement compared to when she arrived in the emergency room. Hospital Course Hospital Course: The patient was admitted to telemetry floor. She was begun on intravenous steroids, [id number] nebulizers, and oral antibiotic and supplemental oxygen. Antitussives were likewise given. With the above measures the patient slowly improved. Course was complicated by headache word the patient was tried on anti-inflammatory medications and analgesics affording relief of symptoms. CT scan of the head shows sphenoid sinusitis. Patient eventually improved. Patient was able to be weaned off the oxygen. she was resumed on her Advair and intravenous steroids shifted to oral. The rest of the hospital stays unremarkable. Chest x-ray did not reveal any pneumonia. Patient eventually discharged home improved with instructions to return to the emergency room symptoms worsen. Physical Exam Vital Signs: Temp Pulse Resp BP Pulse Ox 98.6 F 56 L 17 115/58 L 99 06/19/17 07:41 06/19/17 07:41 06/19/17 07:41 06/19/17 07:41 06/19/17 07:41 Intake & Output 06/18/17 06/19/17 06/20/17 06:59 06:59 06:59 Intake Total 1300 1262 Output Total 760 1950 Balance 540 -688 Weight 100 kg 100 kg General appearance: PRESENT: no acute distress, cooperative, morbidly obese Head exam: PRESENT: normocephalic Eye exam: PRESENT: EOMI Mouth exam: PRESENT: moist, neck supple Neck exam: ABSENT: JVD Respiratory exam: PRESENT: clear to auscultation haritha - Anteriorly, wheezes - Occasional mild on the lower lung field.. ABSENT: rhonchi Cardiovascular exam: PRESENT: RRR. ABSENT: gallop GI/Abdominal exam: PRESENT: soft. ABSENT: distended, tenderness Extremities exam: ABSENT: pedal edema Neurological exam: PRESENT: alert, awake, oriented to person, oriented to place , oriented to time, oriented to situation Skin exam: PRESENT: dry, warm. ABSENT: cyanosis Results Laboratory Results: 06/17/17 04:09 06/16/17 12:34 Impressions: Chest X-Ray 06/16/17 03:56 IMPRESSION: NO SIGNIFICANT RADIOGRAPHIC FINDING IN THE CHEST. Head CT 06/18/17 00:00 IMPRESSION: NORMAL BRAIN CT WITHOUT CONTRAST. Trace fluid right sphenoid sinus from inflammatory change EVIDENCE OF ACUTE STROKE: NO. Qualifiers PATEINT BEING DISCHARGED WITH ANY OF THE FOLLOWING DIAGNOSIS?: No Plan Discharge Plan: Follow-up with primary care physician in 1 week. Time Spent: Less than 30 Minutes
[2017-06-19 11:50] VITALS: BP 123/68
[2017-06-19] MEDS ORDERED: ALBUTEROL SULFATE HFA (90 MCG/PUFF) 200 PUFF/8.5 GM MDI IH PRN (13:00)
== END 2017-06-19 15:40 | disposition home or self-care (01) | DRG 203 ==
LOC: ER 03:50 → EH 11:47 → UNDOADMIN 11:47 → 4N 12:09 → EH 12:54
PROC: 3E0F73Z Introduction of Anti-inflammatory into Respiratory Tract, Via Natural or Artificial Opening (ICD-10-PCS; 2017-06-16)
PROC: 3E0234Z Introduction of Serum, Toxoid and Vaccine into Muscle, Percutaneous Approach (ICD-10-PCS; principal; 2017-06-19)
DX: J45.901 Unspecified asthma with (acute) exacerbation (principal); K21.9 Gastro-esophageal reflux disease without esophagitis; F41.9 Anxiety disorder, unspecified; G43.909 Migraine, unspecified, not intractable, without status migrainosus; N39.498 Other specified urinary incontinence; F43.10 Post-traumatic stress disorder, unspecified; J32.3 Chronic sphenoidal sinusitis; F17.200 Nicotine dependence, unspecified, uncomplicated; Z82.49 Family history of ischemic heart disease and other diseases of the circulatory system; Z83.3 Family history of diabetes mellitus; Z86.73 Personal history of transient ischemic attack (TIA), and cerebral infarction without residual deficits; Z88.6 Allergy status to analgesic agent; Z91.041 Radiographic dye allergy status; Z23 Encounter for immunization
CPT/HCPCS: 36415; 70450; 71020; 80048; 83735; 85025; 90686; 94640; 96365; 99285; J1100; J2930; J3475; J3490; J7030; J7512; J7614; J7620

== ENCOUNTER 2017-08-16 15:03 | Inpatient (IN) | payer SELFPAY ==
[2017-08-16] MEDS ORDERED: PREDNISONE 20 MG TABLET PO ONE (16:46)
[2017-08-16] MEDS ORDERED: ALBUTEROL SULFATE 0.083% NEB 2.5 MG/3 ML AMPUL NEB ONE ×2 (16:46→18:24)
--- NOTE | 2017-08-16 16:47 | ER Document Report ---
ED Medical Screen (RME) - General Chief Complaint: Asthma Exacerbation Stated Complaint: BREATHING PROBLEMS Time Seen by Provider: 08/16/17 16:45 Notes: 2 days of cough and congestion. Patient does have a history of asthma and has been feeling more short of breath. TRAVEL OUTSIDE OF THE [place] IN LAST 30 DAYS: No - Related Data Allergies/Adverse Reactions: codeine Allergy (Verified 08/16/17 15:03) latex Allergy (Verified 08/16/17 15:03) RASH, SWOLLEN TONGUE Past Medical History - Social History Frequency of alcohol use: None Drug Abuse: None Pulmonary Medical History: Reports: Hx Asthma Renal/ Medical History: Denies: Hx Peritoneal Dialysis GI Medical History: Reports: Hx Gastroesophageal Reflux Disease Psychiatric Medical History: Reports: Hx Anxiety, Hx Depression, Hx Post Traumatic Stress Disorder Past Surgical History: Reports: Hx Adenoidectomy, Hx Tonsillectomy, Hx Tubal Ligation - Immunizations Hx Diphtheria, Pertussis, Tetanus Vaccination: Yes History of Influenza Vaccine for 06/2017 - 11/2017 Season: No Physical Exam - Vital signs Vitals: Temp Pulse Resp BP Pulse Ox 98.1 F 120 H 25 H 149/77 H 96 08/16/17 15:07 08/16/17 15:07 08/16/17 15:07 08/16/17 15:07 08/16/17 15:07 Course - Vital Signs Vital signs: Temp Pulse Resp BP Pulse Ox 98.1 F 96 24 H 149/77 H 96 08/16/17 15:07 08/16/17 16:39 08/16/17 16:39 08/16/17 15:07 08/16/17 16:39
[2017-08-16 17:21] LABS: ABSOLUTE EOSINOPHILS # (AUTO) 0.4 10^3/uL (0.0-0.6); ABSOLUTE LYMPHOCYTES (AUTO) 2.7 10^3/uL (0.5-4.7); ABSOLUTE MONOCYTES (AUTO) 0.6 10^3/uL (0.1-1.4); ABSOLUTE NEUT (AUTO) 7.5 10^3/uL (1.7-8.2); BASOPHILS % (AUTO) 0.3 % (0-2); EOSINOPHILS % (AUTO) 3.8 % (0-6); HEMATOCRIT 43.4 % (36.0-47.0); HEMOGLOBIN 14.9 g/dL (12.0-15.5); HGB HCT DIFFERENCE 1.3; LYMPHOCYTES % (AUTO) 24.2 % (13-45); MEAN CORPUSCULAR HEMOGLOBIN 29.8 pg (27.0-33.4); MEAN CORPUSCULAR HGB CONC 34.3 g/dL (32.0-36.0); MEAN CORPUSCULAR VOLUME 87 fl (80-97); MONOCYTES % (AUTO) 5.5 % (3-13); RED BLOOD COUNT 4.99 10^6/uL (3.72-5.28); RED CELL DISTRIBUTION WIDTH 14.5 % (11.5-14.0); SEGMENTED NEUTROPHILS % (AUTO) 66.2 % (42-78); WHITE BLOOD COUNT 11.2 10^3/uL (4.0-10.5)
--- NOTE | 2017-08-16 17:37 | RADIOLOGY REPORT (SQ) ---
EXAM DESCRIPTION: CHEST PA/LAT COMPLETED DATE/TIME: 08/16/2017 5:23 pm REASON FOR STUDY: cough/pain COMPARISON: 06/16/2017 EXAM PARAMETERS: NUMBER OF VIEWS: two views TECHNIQUE: Digital Frontal and Lateral radiographic views of the chest acquired. RADIATION DOSE: NA LIMITATIONS: none FINDINGS: LUNGS AND PLEURA: No opacities, masses or pneumothorax. No pleural effusion. MEDIASTINUM AND HILAR STRUCTURES: No masses or contour abnormalities. HEART AND VASCULAR STRUCTURES: Heart normal size. No evidence for failure. BONES: No acute findings. HARDWARE: None in the chest. OTHER: No other significant finding. IMPRESSION: NO SIGNIFICANT RADIOGRAPHIC FINDING IN THE CHEST. TECHNICAL DOCUMENTATION: JOB ID: [id number] [employer]- All Rights Reserved
[2017-08-16 17:46] LABS: ALANINE AMINOTRANSFERASE 24 U/L (9-52); ALBUMIN 4.4 g/dL (3.5-5.0); ALKALINE PHOSPHATASE 119 U/L (38-126); ANION GAP 12 (5-19); ASPARTATE AMINO TRANSFERASE 18 U/L (14-36); BILIRUBIN,DIRECT 0.3 mg/dL (0.0-0.4); BILIRUBIN,TOTAL 0.7 mg/dL (0.2-1.3); BLOOD UREA NITROGEN 14 mg/dL (7-20); CALCIUM 9.6 mg/dL (8.4-10.2); CARBON DIOXIDE 21 mmol/L (22-30); CHLORIDE 107 mmol/L (98-107); CREATININE RESULT 1.01 mg/dL (0.52-1.25); GLUCOSE 92 mg/dL (75-110); POTASSIUM 4.5 mmol/L (3.6-5.0); SODIUM 140.4 mmol/L (137-145); TOTAL PROTEIN 7.4 g/dL (6.3-8.2)
[2017-08-16] MEDS ORDERED: IPRATROPIUM/ALBUTEROL 0.5-2.5 MG/3 ML AMPUL NEB ONE (18:09)
[2017-08-16] MEDS ORDERED: RINGERS SOLUTION,LACTATED 1,000 ML IV ONE ×2 (18:25→21:10)
--- NOTE | 2017-08-16 18:27 | ER Document Report ---
ED General - General Chief Complaint: Asthma Exacerbation Stated Complaint: BREATHING PROBLEMS Time Seen by Provider: 08/16/17 16:45 Notes: Patient is a 42-year-old female with a past medical history of asthma who presents with 3 days of progressively worsening shortness of breath. Patient reports that she has been using her inhalers at home without any significant improvement of her symptoms. She states any form of exertion worsens her symptoms. She states this does feel similar to when she has had to be admitted into the hospital in the past including most recently in June. She has never required intubation in the past. She has not seen her primary care doctor regarding today's concerns. She denies any fever or constitutional symptoms. She has had a cough. TRAVEL OUTSIDE OF THE [place] IN LAST 30 DAYS: No - Related Data Allergies/Adverse Reactions: codeine Allergy (Verified 08/16/17 15:03) latex Allergy (Verified 08/16/17 15:03) RASH, SWOLLEN TONGUE Past Medical History - General Information source: Patient - Social History Smoking Status: Current Every Day Smoker Frequency of alcohol use: None Drug Abuse: None Family History: Arthritis, CAD, CVA, DM, Hyperlipidemia, Hypertension, Malignancy, Thyroid Disfunction Patient has suicidal ideation: No Patient has homicidal ideation: No Pulmonary Medical History: Reports: Hx Asthma Renal/ Medical History: Denies: Hx Peritoneal Dialysis GI Medical History: Reports: Hx Gastroesophageal Reflux Disease Psychiatric Medical History: Reports: Hx Anxiety, Hx Depression, Hx Post Traumatic Stress Disorder Past Surgical History: Reports: Hx Adenoidectomy, Hx Tonsillectomy, Hx Tubal Ligation - Immunizations Hx Diphtheria, Pertussis, Tetanus Vaccination: Yes Review of Systems - Review of Systems Notes: Constitutional: Negative for fever. HENT: Negative for sore throat. Eyes: Negative for visual changes. Cardiovascular: Negative for chest pain. Respiratory: Positive for shortness of breath. Gastrointestinal: Negative for abdominal pain, vomiting or diarrhea. Genitourinary: Negative for dysuria. Musculoskeletal: Negative for back pain. Skin: Negative for rash. Neurological: Negative for headaches, weakness or numbness. 10 point ROS negative except as marked above and in HPI. Physical Exam - Vital signs Vitals: Temp Pulse Resp BP Pulse Ox 98.1 F 120 H 25 H 149/77 H 96 08/16/17 15:07 08/16/17 15:07 08/16/17 15:07 12/04/17 15:07 08/16/17 15:07 Interpretation: Tachycardic, Tachypneic Notes: PHYSICAL EXAMINATION: GENERAL: Appears to be in moderate respiratory distress HEAD: Atraumatic, normocephalic. EYES: Pupils equal round and reactive to light, extraocular movements intact, sclera anicteric, conjunctiva are normal. ENT: nares patent, oropharynx clear without exudates. Moderately dry mucous membranes. NECK: Normal range of motion, supple without lymphadenopathy LUNGS: Tachypneic, breathing 20 breaths per minute. Unable to speak in greater than 3-4 words per sentence. There are coarse breath sounds throughout with a very prolonged respiratory phase and expiratory wheeze. HEART: Regular tachycardia without murmurs ABDOMEN: Soft, nontender, normoactive bowel sounds. No guarding, no rebound. No masses appreciated. EXTREMITIES: Normal range of motion, no pitting or edema. No cyanosis. NEUROLOGICAL: No focal neurological deficits. Moves all extremities spontaneously and on command. PSYCH: Normal mood, normal affect. SKIN: Warm, Dry, normal turgor, no rashes or lesions noted. Course - Re-evaluation Re-evalutation: 08/16/17 18:26 Patient presents extremely tight, poor air movement throughout, able speak 3-4 word sentences before having coughing and needed to take a sequence of rapid breaths. Patient has had repeated exacerbations that have resulted in hospitalizations since April. She continues to rate approximately 28 breaths per minute at time of my initial assessment, some intermittent retractions. Immediately upon assessment of this patient, I did request continuous albuterol nebulizers be initiated an IV established. She will be noted on 2 g of continuous magnesium. Will also start IV fluids. Review her laboratories is unremarkable. Chest x-ray is clear. Given patient's degree of respiratory distress she will require frequent reassessments and is considered critically ill at this time 08/16/17 193 Patient remains tight, wheezing, although work of breathing is improved. She remains on continuous nebulizers 2030 Patient continues to desaturate down to as low as 88% on room air. She continues to be wheezing and tight. She continues to be without respiratory distress, overall much improved when I first saw her approximately 2 hours ago but continues to have labored breathing. Will restart continuous nebulizers. I have also discussed the case with Dr. Corley who will admit to the hospital - Vital Signs Vital signs: Temp Pulse Resp BP Pulse Ox 97.4 F 112 H 22 H 133/89 H 96 08/17/17 01:44 08/16/17 21:46 08/17/17 00:01 08/17/17 00:01 08/17/17 00:01 - Laboratory Result Diagrams: 08/16/17 17:03 08/16/17 17:03 Laboratory results interpreted by me: 08/16/17 08/16/17 17:03 17:03 WBC 11.2 H RDW 14.5 H Carbon Dioxide 21 L - Diagnostic Test Radiology reviewed: Image reviewed, Reports reviewed Radiology results interpreted by me: 08/16/17 20:33 Chest x-ray: No acute infiltrate or pneumothorax Critical Care Note - Critical Care Note Total time excluding time spent on procedures (mins): 38 Comments: Critical care time spent obtaining history from patient or surrogate, discussions with consultants, development of treatment plan with patient or surrogate, evaluation of patient's response to treatment, examination of patient , ordering and performing treatments and interventions, ordering and review of laboratory studies, re-evaluation of patient's condition, ordering and review of radiographic studies and review of old charts Discharge - Discharge Clinical Impression: Respiratory distress Acute asthma exacerbation Qualifiers: Asthma severity: moderate Asthma persistence: persistent Qualified Code(s): J45.41 - Moderate persistent asthma with (acute) exacerbation Condition: Fair Disposition: ADMITTED INPATIENT Admitting Provider: Flavio Corley Unit Admitted: Telemetry
[2017-08-16] MEDS: MAGNESIUM SULFATE/D5W 1 GM/100 ML RTUPB IV SCH ×2 (18:35→19:46)
[2017-08-16] MEDS ORDERED: LEVALBUTEROL HCL NEB 1.25 MG/3 ML AMPUL NEB PRN (20:35)
[2017-08-16] MEDS ORDERED: GUAIFENESIN SYRP 200 MG/10 ML UDC PO PRN (20:35)
[2017-08-16] MEDS: ALBUTEROL SULFATE 0.083% NEB 2.5 MG/3 ML AMPUL NEB SCH ×2 (21:00→21:20)
[2017-08-16] MEDS: RINGERS SOLUTION,LACTATED 1,000 ML IV PRN (21:00)
[2017-08-16] MEDS ORDERED: ENOXAPARIN SODIUM INJ 40 MG/0.4 ML DISP.SYRIN SUBCUT ONE (21:00)
[2017-08-16] MEDS ORDERED: KETAMINE HCL INJ 500 MG/10 ML VIAL IV ONE (21:08)
[2017-08-16] MEDS ORDERED: KETAMINE HCL INJ 500 MG/10 ML VIAL ONE (21:17)
--- NOTE | 2017-08-16 21:45 | PDOC H&P ---
History of Present Illness Admission Date/PCP: 08/16/17 21:01 NO PCP History of Present Illness: ISHA REDMOND is a 42 year old female with a PMH of asthma who presents with several days of increased wheezing and shortness of breath. Patient reports she almost passed out today because she could not breathe. Patient has had 20mg of albuterol, prednisone, 2g of Magnesium, and fluids. Patient is referred to hospital service for status asthmaticus Past Medical History Pulmonary Medical History: Reports: Asthma GI Medical History: Reports: Gastroesophageal Reflux Disease Psychiatric Medical History: Reports: Depression, Post Traumatic Stress Disorder Past Surgical History Past Surgical History: Reports: Adenoidectomy, Tonsillectomy, Tubal Ligation Social History Smoking Status: Current Every Day Smoker Frequency of Alcohol Use: None Hx Recreational Drug Use: No Drugs: None Hx Prescription Drug Abuse: No - Advance Directive Resuscitation Status: Full Code Surrogate healthcare decision maker:: Seamus Price, son Family History Family History: Arthritis, CAD, CVA, DM, Hyperlipidemia, Hypertension, Malignancy, Thyroid Disfunction Parental Family History Reviewed: Yes Children Family History Reviewed: Yes Sibling(s) Family History Reviewed.: Yes Medication/Allergy Home Medications: Albuterol Sulfate [Albuterol Sulfate 2.5mg/3 mL] 3 ml NEB Q2HP PRN 06/16/17 Albuterol Sulfate [Proair HFA Inhalation Aerosol 8.5 gm MDI] 1 puff IH Q4HP PRN #1 [email or web address] 06/19/17 Allergies/Adverse Reactions: codeine Allergy (Verified 08/16/17 15:03) latex Allergy (Verified 08/16/17 15:03) RASH, SWOLLEN TONGUE Review of Systems ROS unobtainable: Other - Limited due to shortness of breath Constitutional: ABSENT: chills, fever(s), headache(s), weight gain, weight loss Eyes: ABSENT: visual disturbances Ears: ABSENT: hearing changes Cardiovascular: ABSENT: chest pain, dyspnea on exertion, edema, orthropnea, palpitations Respiratory: PRESENT: dyspnea. ABSENT: cough, hemoptysis, sputum Gastrointestinal: ABSENT: abdominal pain, constipation, diarrhea, hematemesis, hematochezia, nausea, vomiting Genitourinary: ABSENT: dysuria, hematuria Musculoskeletal: ABSENT: joint swelling Integumentary: ABSENT: rash, wounds Neurological: ABSENT: abnormal gait, abnormal speech, confusion, dizziness, focal weakness, syncope Psychiatric: ABSENT: anxiety, depression, homidical ideation, suicidal ideation Endocrine: ABSENT: cold intolerance, heat intolerance, polydipsia, polyuria Hematologic/Lymphatic: ABSENT: easy bleeding, easy bruising Physical Exam Vital Signs: Temp Pulse Resp BP Pulse Ox 97.9 F 111 H 28 H 131/57 H 96 08/16/17 20:00 08/16/17 18:07 08/16/17 21:00 08/16/17 20:01 08/16/17 21:00 General appearance: PRESENT: obese, severe distress, well-developed, well- nourished Exam: Patient is tachypneic, diaphoretic, and in a modified tripod position Head exam: PRESENT: atraumatic, normocephalic Eye exam: PRESENT: conjunctiva pink, EOMI, PERRLA. ABSENT: scleral icterus Ear exam: PRESENT: normal external ear exam Mouth exam: PRESENT: dry mucosa, tongue midline Neck exam: ABSENT: JVD, lymphadenopathy, thyromegaly, tracheal deviation Respiratory exam: PRESENT: accessory muscle use, retraction - Clavicular, symmetrical, tachypnea, wheezes. ABSENT: rales, rhonchi, unlabored - Poor airflow throughout Cardiovascular exam: PRESENT: RRR, +S1, +S2, tachycardia. ABSENT: diastolic murmur, rubs, systolic murmur Pulses: PRESENT: normal dorsalis pedis pul Vascular exam: PRESENT: normal capillary refill GI/Abdominal exam: PRESENT: normal bowel sounds, soft. ABSENT: distended, guarding, mass, organolmegaly, rebound, tenderness Rectal exam: PRESENT: deferred Extremities exam: PRESENT: full ROM. ABSENT: calf tenderness, clubbing, pedal edema Neurological exam: PRESENT: alert, awake, oriented to person, oriented to place , oriented to time, oriented to situation, CN II-XII grossly intact. ABSENT: motor sensory deficit Psychiatric exam: PRESENT: appropriate affect, normal mood. ABSENT: homicidal ideation, suicidal ideation Skin exam: PRESENT: dry, intact, warm. ABSENT: cyanosis, rash Results Impressions: Chest X-Ray 08/16/17 16:46 IMPRESSION: NO SIGNIFICANT RADIOGRAPHIC FINDING IN THE CHEST. Assessment & Plan - Diagnosis (1) Status asthmaticus Qualifiers: Asthma severity: moderate Asthma persistence: persistent Qualified Code(s ): J45.42 - Moderate persistent asthma with status asthmaticus Is this a current diagnosis for this admission?: Yes Plan: Have given patient ketamine for relief of bronchospasm. Will obtain ABG. Concern patient will need intubation. Place patient on scheduled nebulized treatments and re-evaluate for improvement. PRN Xopenex Place patient on IV Solu-Medrol Obtain sputum culture Encourage smoking cessation Patient does not give a history of fever/chills and I will hold on antibiotics at this time. (2) Acute hypoxemic respiratory failure Is this a current diagnosis for this admission?: Yes Plan: Continue oxygen as needed (3) GERD (gastroesophageal reflux disease) Qualifiers: Esophagitis presence: without esophagitis Qualified Code(s): K21.9 - Gastro -esophageal reflux disease without esophagitis Is this a current diagnosis for this admission?: Yes Plan: Place on Pepcid twice daily (4) Hx of anxiety disorder Is this a current diagnosis for this admission?: Yes (5) Tobacco abuse Is this a current diagnosis for this admission?: Yes Plan: Patient is advised to stop using tobacco. - Time Time Spent: 30 to 50 Minutes Medications reviewed and adjusted accordingly: Yes Anticipated discharge: Home Within: Other - Upon improvement of symptomatology - Inpatient Certification Based on my medical assessment, after consideration of the patient's comorbidities, presenting symptoms, or acuity I expect that the services needed warrant INPATIENT care.: Yes I certify that my determination is in accordance with my understanding of Medicare's requirements for reasonable and necessary INPATIENT services [42 CFR 412.3e].: Yes Medical Necessity: Need For Continuous Telemetry Monitoring Post Hospital Care: D/C Speech Correction Consultant Documentation
[2017-08-16] MEDS ORDERED: METHYLPREDNISOLONE INJ 125 MG/2 ML SDV IV ONE (22:00)
[2017-08-16] MEDS ORDERED: LEVALBUTEROL HCL NEB 1.25 MG/3 ML AMPUL NEB ONE (22:00)
[2017-08-16 22:23] LABS: ARTERIAL BLOOD BASE EXCESS -3.2 mmol/L; ARTERIAL BLOOD O2 SATURATION 98.2 % (94-98)
--- NOTE | 2017-08-16 22:32 | Progress Note ---
Provider Note Provider Note: Due to patient's extremis, gave patient ketamine 100 mg IV 1. Patient this bronchospasm improved and is moving air better. Patient has emerged from her sedation without complication.
[2017-08-16] MEDS: ONDANSETRON 4 MG TAB.RAPDIS PO PRN (22:37)
[2017-08-16] MEDS: FAMOTIDINE 20 MG TABLET PO SCH (23:30)
[2017-08-16] MEDS: MONTELUKAST SODIUM 10 MG TABLET PO SCH (23:31)
[2017-08-16] MEDS ORDERED: RINGERS SOLUTION,LACTATED 2,000 ML IV ONE (23:55)
[2017-08-17] MEDS ORDERED: KETAMINE HCL INJ 500 MG/10 ML VIAL IV ONE (00:03)
[2017-08-17] MEDS: METHYLPREDNISOLONE INJ 125 MG/2 ML SDV IV SCH ×4 (00:33→22:50)
[2017-08-17] MEDS ORDERED: LORAZEPAM INJ 2 MG/1 ML VIAL IV ONE (00:33)
[2017-08-17] MEDS: IPRATROPIUM/ALBUTEROL 0.5-2.5 MG/3 ML AMPUL NEB SCH ×4 (01:52→20:59)
[2017-08-17] MEDS: ACETAMINOPHEN 325 MG TABLET PO PRN ×4 (06:00→20:07)
[2017-08-17 06:08] LABS: HEMATOCRIT 37.8 % (36.0-47.0); HEMOGLOBIN 12.9 g/dL (12.0-15.5); HGB HCT DIFFERENCE 0.9; MEAN CORPUSCULAR HEMOGLOBIN 29.3 pg (27.0-33.4); MEAN CORPUSCULAR HGB CONC 34.1 g/dL (32.0-36.0); MEAN CORPUSCULAR VOLUME 86 fl (80-97); RED CELL DISTRIBUTION WIDTH 14.5 % (11.5-14.0); WHITE BLOOD COUNT 10.4 10^3/uL (4.0-10.5)
[2017-08-17 06:19] LABS: ANION GAP 12 (5-19); BLOOD UREA NITROGEN 9 mg/dL (7-20); CALCIUM 9.2 mg/dL (8.4-10.2); CARBON DIOXIDE 19 mmol/L (22-30); CHLORIDE 110 mmol/L (98-107); CHOLESTEROL 224.53 mg/dL (0-200); CREATININE RESULT 0.65 mg/dL (0.52-1.25); Direct HDL 56 mg/dL (>40); GLUCOSE 165 mg/dL (75-110); POTASSIUM 4.4 mmol/L (3.6-5.0); TRIGLYCERIDES 65 mg/dL (<150)
[2017-08-17 06:29] LABS: DIRECT LDL 153 mg/dL (<100)
[2017-08-17] MEDS: ENOXAPARIN SODIUM INJ 40 MG/0.4 ML DISP.SYRIN SUBCUT SCH (09:33)
[2017-08-17] MEDS: IBUPROFEN 600 MG TABLET PO PRN ×2 (12:51→22:49)
[2017-08-17] MEDS: RINGERS SOLUTION,LACTATED 1,000 ML IV PRN (12:52)
--- NOTE | 2017-08-17 14:19 | PDOC PROGRESS REPORT ---
Subjective Progress Note for:: 08/17/17 Subjective:: Patient is seen on rounds as follow-up for status asthmaticus. She is seen resting in bed comfortably on room air. Upon walking into the room she is noted to be speaking on the phone in full sentences while lying right lateral recumbent position. She reports continued occasional expiratory wheezing and shortness of breath with activity. She denies cough, dyspnea at rest, and orthopnea. Her primary complaint at present is a headache that has not responded to Tylenol. She reports that she takes Motrin at home and this typically relieves her headaches, she requests that I order Motrin for her. Patient reports that she has had several hospitalizations for asthma exacerbations over the last year. She states that she is unable to afford her maintenance inhalers which is contributing to her uncontrolled asthma. However , she does admit to continued smoking of approximately 1 pack per day. She denies precipitating illness, fever, chills, chest pain, palpitation, abdominal pain, nausea, vomiting. She has no other questions or concerns this morning. Reason For Visit: ASTHMA EXACERBATION Physical Exam Vital Signs: Temp Pulse Resp BP Pulse Ox 98.4 F 112 H 18 120/72 98 08/17/17 07:14 08/16/17 21:46 08/17/17 11:31 08/17/17 08:01 08/17/17 11:31 General appearance: PRESENT: no acute distress, obese, well-developed, well- nourished Head exam: PRESENT: atraumatic, normocephalic Eye exam: PRESENT: conjunctiva pink, EOMI, PERRLA. ABSENT: scleral icterus Ear exam: PRESENT: normal external ear exam Mouth exam: PRESENT: moist, tongue midline Neck exam: ABSENT: carotid bruit, JVD, lymphadenopathy, thyromegaly Respiratory exam: PRESENT: symmetrical, unlabored, wheezes - Slight end expiratory wheezing noted to the bilateral upper lobes. ABSENT: accessory muscle use, rales, rhonchi, tachypnea Cardiovascular exam: PRESENT: RRR. ABSENT: diastolic murmur, rubs, systolic murmur, tachycardia Pulses: PRESENT: normal dorsalis pedis pul Vascular exam: PRESENT: normal capillary refill GI/Abdominal exam: PRESENT: normal bowel sounds, soft. ABSENT: distended, guarding, mass, organolmegaly, rebound, tenderness Rectal exam: PRESENT: deferred Extremities exam: PRESENT: full ROM. ABSENT: calf tenderness, clubbing, pedal edema Neurological exam: PRESENT: alert, awake, oriented to person, oriented to place , oriented to time, oriented to situation, CN II-XII grossly intact. ABSENT: motor sensory deficit Psychiatric exam: PRESENT: appropriate affect, normal mood. ABSENT: homicidal ideation, suicidal ideation Skin exam: PRESENT: dry, intact, warm. ABSENT: cyanosis, rash Results Laboratory Results: 08/17/17 05:55 08/17/17 05:55 08/16/17 08/17/17 08/17/17 21:50 05:55 05:55 WBC 10.4 RBC 4.40 Hgb 12.9 Hct 37.8 MCV 86 MCH 29.3 MCHC 34.1 RDW 14.5 H Plt Count 263 Carbonic Acid 0.68 L HCO3/H2CO3 Ratio 25:1 ABG pH 7.51 H ABG pCO2 22.7 L ABG pO2 102.0 H ABG HCO3 17.6 L ABG O2 Saturation 98.2 H ABG Base Excess -3.2 FiO2 5L Sodium 141.0 Potassium 4.4 Chloride 110 H Carbon Dioxide 19 L Anion Gap 12 BUN 9 Creatinine 0.65 Est GFR ( Amer) > 60 Est GFR (Non-Af Amer) > 60 Glucose 165 H Calcium 9.2 Triglycerides 65 Cholesterol 224.53 H LDL Cholesterol Direct 153 H VLDL Cholesterol 13.0 HDL Cholesterol 56 Impressions: Chest X-Ray 08/16/17 16:46 IMPRESSION: NO SIGNIFICANT RADIOGRAPHIC FINDING IN THE CHEST. Assessment & Plan - Diagnosis (1) Status asthmaticus Qualifiers: Asthma severity: moderate Asthma persistence: persistent Qualified Code(s ): J45.42 - Moderate persistent asthma with status asthmaticus Is this a current diagnosis for this admission?: Yes Plan: Improved. Patient with relief of bronchospasm is following receiving IV ketamine overnight. She is now resting comfortably and maintaining oxygen saturations while on room air. We will continue scheduled nebulizer treatments with as needed Xopenex. We will continue IV Solu-Medrol. There are no indications for antibiotics at this time. Sputum and blood cultures are pending. Smoking cessation was encouraged. Will ask maintenance planner and patient navigator to meet with patient to discuss community resources, financial and insurance eligibility. (2) Acute hypoxemic respiratory failure Is this a current diagnosis for this admission?: Yes Plan: Resolved. Patient is now maintaining oxygen saturations greater than 94% while on room air. Continue plan as above. (3) GERD (gastroesophageal reflux disease) Qualifiers: Esophagitis presence: without esophagitis Qualified Code(s): K21.9 - Gastro -esophageal reflux disease without esophagitis Is this a current diagnosis for this admission?: Yes Plan: Continue Pepcid twice daily. (4) Hx of anxiety disorder Is this a current diagnosis for this admission?: Yes (5) Tobacco abuse Is this a current diagnosis for this admission?: Yes Plan: Patient is encouraged to stop using tobacco products. Nicotine replacement therapy is offered and declined at this time. (6) Headache Qualifiers: Headache type: tension-type Is this a current diagnosis for this admission?: Yes Plan: Motrin 600 mg p.o. every 8 hours as needed headache. - Time Time Spent with patient: 25-34 minutes Smoking Cessation Education: 3 to 10 minutes Medications reviewed and adjusted accordingly: Yes Anticipated discharge: Home - Inpatient Certification Based on my medical assessment, after consideration of the patient's comorbidities, presenting symptoms, or acuity I expect that the services needed warrant INPATIENT care.: Yes I certify that my determination is in accordance with my understanding of Medicare's requirements for reasonable and necessary INPATIENT services [42 CFR 412.3e].: Yes Medical Necessity: Need Close Monitoring Due to Risk of Patient Decompensation, Need for Nebulizer Therapy and Monitoring of Response
[2017-08-17] MEDS: ONDANSETRON 4 MG TAB.RAPDIS PO PRN (20:07)
[2017-08-17] MEDS ORDERED: CHLORPHENIRAMINE MALEATE 4 MG TABLET PO ONE (22:00)
[2017-08-17] MEDS: FLUTICASONE NASAL SPRAY 50 MCG/SPRY 120 SPRAY/16 GM NASL SCH (22:48)
[2017-08-17] MEDS: SIMVASTATIN 40 MG TABLET PO SCH (22:50)
[2017-08-17] MEDS: FAMOTIDINE 20 MG TABLET PO SCH (22:51)
[2017-08-18] MEDS: IPRATROPIUM/ALBUTEROL 0.5-2.5 MG/3 ML AMPUL NEB SCH ×4 (02:13→19:50)
[2017-08-18] MEDS: ACETAMINOPHEN 325 MG TABLET PO PRN ×3 (02:37→18:31)
[2017-08-18] MEDS: RINGERS SOLUTION,LACTATED 1,000 ML IV PRN ×3 (02:39→18:27)
[2017-08-18 04:51] LABS: ANION GAP 15 (5-19); BLOOD UREA NITROGEN 13 mg/dL (7-20); CALCIUM 9.4 mg/dL (8.4-10.2); CARBON DIOXIDE 17 mmol/L (22-30); CHLORIDE 109 mmol/L (98-107); CREATININE RESULT 0.78 mg/dL (0.52-1.25); GLUCOSE 142 mg/dL (75-110); MAGNESIUM 2.2 mg/dL (1.6-2.3); POTASSIUM 4.8 mmol/L (3.6-5.0); SODIUM 140.9 mmol/L (137-145)
[2017-08-18] MEDS: METHYLPREDNISOLONE INJ 125 MG/2 ML SDV IV SCH (05:53)
[2017-08-18] MEDS: IBUPROFEN 600 MG TABLET PO PRN ×3 (08:01→22:59)
[2017-08-18] MEDS: FAMOTIDINE 20 MG TABLET PO SCH ×2 (10:16→21:09)
[2017-08-18] MEDS: ENOXAPARIN SODIUM INJ 40 MG/0.4 ML DISP.SYRIN SUBCUT SCH (10:17)
[2017-08-18] MEDS: FLUTICASONE NASAL SPRAY 50 MCG/SPRY 120 SPRAY/16 GM NASL SCH ×2 (10:17→21:09)
--- NOTE | 2017-08-18 12:19 | PDOC PROGRESS REPORT ---
Subjective Progress Note for:: 08/18/17 Subjective:: Patient is seen on rounds as follow-up for status asthmaticus. She is seen resting in bed comfortably on room air. Upon walking into the room she is noted to be speaking on the phone in full sentences while lying supine. She reports continued occasional expiratory wheezing and shortness of breath with activity, however, reports that she is "steadily improving." She denies cough, dyspnea at rest, and orthopnea. She continues to have an intermittent, global, tension-like headache that she states is typical for her especially when on steroid therapy. She reports moderate improvement with Motrin but asks to have the dose increased has she normally takes 800 mg at home with adequate response. She denies fever, chills, chest pain, palpitation, abdominal pain, nausea, vomiting. She has no other questions or concerns this morning. Reason For Visit: ASTHMA EXACERBATION Physical Exam Vital Signs: Temp Pulse Resp BP Pulse Ox 97.9 F 96 14 123/76 95 08/18/17 07:19 08/18/17 08:34 08/18/17 08:34 08/18/17 07:19 08/18/17 08:34 Intake & Output 08/17/17 08/18/17 08/19/17 06:59 06:59 06:59 Intake Total 2336 Output Total 3 Balance 2333 Weight 109.4 kg General appearance: PRESENT: no acute distress, obese, well-developed, well- nourished Head exam: PRESENT: atraumatic, normocephalic Eye exam: PRESENT: conjunctiva pink, EOMI, PERRLA. ABSENT: scleral icterus Ear exam: PRESENT: normal external ear exam Mouth exam: PRESENT: moist, tongue midline Neck exam: ABSENT: carotid bruit, JVD, lymphadenopathy, thyromegaly Respiratory exam: PRESENT: clear to auscultation haritha, rhonchi, symmetrical, unlabored, wheezes - Expiratory wheezing throughout. ABSENT: rales Cardiovascular exam: PRESENT: RRR, +S1, +S2. ABSENT: diastolic murmur, rubs, systolic murmur Pulses: PRESENT: normal dorsalis pedis pul Vascular exam: PRESENT: normal capillary refill GI/Abdominal exam: PRESENT: normal bowel sounds, soft. ABSENT: distended, guarding, mass, organolmegaly, rebound, tenderness Rectal exam: PRESENT: deferred Extremities exam: PRESENT: full ROM. ABSENT: calf tenderness, clubbing, pedal edema Neurological exam: PRESENT: alert, awake, oriented to person, oriented to place , oriented to time, oriented to situation, CN II-XII grossly intact. ABSENT: motor sensory deficit Psychiatric exam: PRESENT: appropriate affect, normal mood. ABSENT: homicidal ideation, suicidal ideation Skin exam: PRESENT: dry, intact, warm. ABSENT: cyanosis, rash Results Laboratory Results: 08/17/17 05:55 08/18/17 04:07 08/18/17 04:07 Sodium 140.9 Potassium 4.8 Chloride 109 H Carbon Dioxide 17 L Anion Gap 15 BUN 13 Creatinine 0.78 Est GFR ( Amer) > 60 Est GFR (Non-Af Amer) > 60 Glucose 142 H Calcium 9.4 Magnesium 2.2 Impressions: Chest X-Ray 08/16/17 16:46 IMPRESSION: NO SIGNIFICANT RADIOGRAPHIC FINDING IN THE CHEST. Assessment & Plan - Diagnosis (1) Status asthmaticus Qualifiers: Asthma severity: moderate Asthma persistence: persistent Qualified Code(s ): J45.42 - Moderate persistent asthma with status asthmaticus Is this a current diagnosis for this admission?: Yes Plan: Improved. Patient with relief of bronchospasm is following receiving IV ketamine while still in the ED. At that time, she was also treated with IV Solu-Medrol and magnesium. She is now resting comfortably and maintaining oxygen saturations while on room air. We will continue scheduled nebulizer treatments with as needed Xopenex. We will decrease Solu-Medrol to 40 mg every 8 hours. There are no indications for antibiotics at this time. Sputum and blood cultures: No growth at 24 hours. Smoking cessation was encouraged. Will ask life care planner and patient navigator to meet with patient to discuss community resources, financial and insurance eligibility. (2) Acute hypoxemic respiratory failure Is this a current diagnosis for this admission?: Yes Plan: Resolved. Patient is now maintaining oxygen saturations greater than 94% while on room air. Continue plan as above. (3) GERD (gastroesophageal reflux disease) Qualifiers: Esophagitis presence: without esophagitis Qualified Code(s): K21.9 - Gastro -esophageal reflux disease without esophagitis Is this a current diagnosis for this admission?: Yes Plan: Continue Pepcid twice daily. (4) Hx of anxiety disorder Is this a current diagnosis for this admission?: Yes (5) Tobacco abuse Is this a current diagnosis for this admission?: Yes Plan: Patient is encouraged to stop using tobacco products. Nicotine replacement therapy is offered and declined at this time. (6) Headache Qualifiers: Headache type: tension-type Is this a current diagnosis for this admission?: Yes Plan: Motrin 800 mg p.o. every 8 hours as needed headache. Patient was offered Fioricet which she has declined at this time. - Time Time Spent with patient: 15-24 minutes Anticipated discharge: Home Within: within 36 hours - Inpatient Certification Based on my medical assessment, after consideration of the patient's comorbidities, presenting symptoms, or acuity I expect that the services needed warrant INPATIENT care.: Yes I certify that my determination is in accordance with my understanding of Medicare's requirements for reasonable and necessary INPATIENT services [42 CFR 412.3e].: Yes Medical Necessity: Failure to Improve With Outpatient Therapy, Need Close Monitoring Due to Risk of Patient Decompensation, Need for Nebulizer Therapy and Monitoring of Response
[2017-08-18] MEDS: METHYLPREDNISOLONE INJ 40 MG/1 ML SDV IV SCH ×2 (13:30→22:59)
[2017-08-18] MEDS: SIMVASTATIN 40 MG TABLET PO SCH (21:09)
[2017-08-18] MEDS: MONTELUKAST SODIUM 10 MG TABLET PO SCH (21:09)
[2017-08-19] MEDS: IPRATROPIUM/ALBUTEROL 0.5-2.5 MG/3 ML AMPUL NEB SCH ×4 (01:52→20:00)
[2017-08-19] MEDS: ACETAMINOPHEN 325 MG TABLET PO PRN (05:35)
[2017-08-19] MEDS: ONDANSETRON 4 MG TAB.RAPDIS PO PRN ×2 (05:35→22:23)
[2017-08-19] MEDS: RINGERS SOLUTION,LACTATED 1,000 ML IV PRN ×3 (05:35→20:21)
[2017-08-19] MEDS: METHYLPREDNISOLONE INJ 40 MG/1 ML SDV IV SCH ×3 (05:36→22:23)
[2017-08-19] MEDS: IBUPROFEN 600 MG TABLET PO PRN ×2 (08:12→22:22)
[2017-08-19] MEDS: FLUTICASONE NASAL SPRAY 50 MCG/SPRY 120 SPRAY/16 GM NASL SCH ×2 (09:20→22:23)
[2017-08-19] MEDS: FAMOTIDINE 20 MG TABLET PO SCH ×2 (09:21→22:23)
[2017-08-19] MEDS: ENOXAPARIN SODIUM INJ 40 MG/0.4 ML DISP.SYRIN SUBCUT SCH (09:21)
[2017-08-19] MEDS ORDERED: KETOROLAC TROMETHAMINE 60 MG/2 ML SDV IM ONE (10:32)
[2017-08-19] MEDS ORDERED: DIPHENHYDRAMINE HCL 50 MG/ML VIAL IV ONE ×2 (10:32→11:45)
--- NOTE | 2017-08-19 15:28 | PDOC PROGRESS REPORT ---
Subjective Progress Note for:: 08/19/17 Subjective:: Patient is seen on rounds as follow-up for status asthmaticus. She is seen resting in bed comfortably on room air. She states that she feels that her breathing status has continued to improve, however, she continues to have an expiratory wheeze. She also reports slight chest tightness went up to the bathroom. She continues to have an intermittent, global, tension-like headache that she states is typical for her especially when on steroid therapy. She further comments that she has begun her menses and that she frequently has migraine- like headaches at this time. She manages her headaches at home with rest and Motrin. She states that the Motrin here has not been helpful and requests a stronger medication. She denies fever, chills, chest pain, palpitation, abdominal pain, nausea, vomiting. She has no other questions or concerns this morning. Reason For Visit: ASTHMA EXACERBATION Physical Exam Vital Signs: Temp Pulse Resp BP Pulse Ox 98.0 F 70 14 149/76 H 98 08/19/17 11:55 08/19/17 14:19 08/19/17 14:19 08/19/17 11:55 08/19/17 14:19 Intake & Output 08/18/17 08/19/17 08/20/17 06:59 06:59 06:59 Intake Total 2336 4481 222 Output Total 3 11 Balance 2333 4470 222 Weight 109.4 kg 112.7 kg General appearance: PRESENT: no acute distress, obese, well-developed, well- nourished Head exam: PRESENT: atraumatic, normocephalic Eye exam: PRESENT: conjunctiva pink, EOMI, PERRLA. ABSENT: scleral icterus Ear exam: PRESENT: normal external ear exam Mouth exam: PRESENT: moist, tongue midline Neck exam: ABSENT: carotid bruit, JVD, lymphadenopathy, thyromegaly Respiratory exam: PRESENT: clear to auscultation haritha, symmetrical, unlabored, wheezes - Expiratory wheezing throughout. ABSENT: rales, rhonchi Cardiovascular exam: PRESENT: RRR, +S1, +S2. ABSENT: diastolic murmur, rubs, systolic murmur Pulses: PRESENT: normal dorsalis pedis pul Vascular exam: PRESENT: normal capillary refill GI/Abdominal exam: PRESENT: normal bowel sounds, soft. ABSENT: distended, guarding, mass, organolmegaly, rebound, tenderness Rectal exam: PRESENT: deferred Extremities exam: PRESENT: full ROM. ABSENT: calf tenderness, clubbing, pedal edema Neurological exam: PRESENT: alert, awake, oriented to person, oriented to place , oriented to time, oriented to situation, CN II-XII grossly intact. ABSENT: motor sensory deficit Psychiatric exam: PRESENT: appropriate affect, normal mood. ABSENT: homicidal ideation, suicidal ideation Skin exam: PRESENT: dry, intact, warm. ABSENT: cyanosis, rash Results Laboratory Results: 08/17/17 05:55 08/18/17 04:07 08/17/17 20:09 Sputum Gram Stain - Final 08/17/17 20:09 Sputum Sputum Culture - Final NORMAL CM Impressions: Chest X-Ray 08/16/17 16:46 IMPRESSION: NO SIGNIFICANT RADIOGRAPHIC FINDING IN THE CHEST. Assessment & Plan - Diagnosis (1) Status asthmaticus Qualifiers: Asthma severity: moderate Asthma persistence: persistent Qualified Code(s ): J45.42 - Moderate persistent asthma with status asthmaticus Is this a current diagnosis for this admission?: Yes Plan: Improved. Patient with relief of bronchospasm is following receiving IV ketamine while still in the ED. At that time, she was also treated with IV Solu-Medrol and magnesium. She is now resting comfortably and maintaining oxygen saturations while on room air. We will continue scheduled nebulizer treatments with as needed Xopenex. Continue IV Solu-Medrol 40 mg every 8 hours. There are no indications for antibiotics at this time. Sputum and blood cultures: No growth at 48 hours. Smoking cessation was encouraged. Will ask digital sales planner and patient navigator to meet with patient to discuss community resources, financial and insurance eligibility. (2) Acute hypoxemic respiratory failure Is this a current diagnosis for this admission?: Yes Plan: Resolved. Patient is now maintaining oxygen saturations greater than 94% while on room air. Continue plan as above. (3) GERD (gastroesophageal reflux disease) Qualifiers: Esophagitis presence: without esophagitis Qualified Code(s): K21.9 - Gastro -esophageal reflux disease without esophagitis Is this a current diagnosis for this admission?: Yes Plan: Continue Pepcid twice daily. (4) Hx of anxiety disorder Is this a current diagnosis for this admission?: Yes (5) Tobacco abuse Is this a current diagnosis for this admission?: Yes Plan: Patient is encouraged to stop using tobacco products. Nicotine replacement therapy is offered and declined at this time. (6) Headache Qualifiers: Headache type: tension-type Is this a current diagnosis for this admission?: Yes Plan: We will provide a one-time dose of IV Toradol and IV Benadryl (patient is already receiving IV steroids) for treatment of migraine. Encourage fluids and nonpharmacological pain relief measures. - Time Time Spent with patient: 15-24 minutes Medications reviewed and adjusted accordingly: Yes Anticipated discharge: Home Within: within 48 hours - Inpatient Certification Based on my medical assessment, after consideration of the patient's comorbidities, presenting symptoms, or acuity I expect that the services needed warrant INPATIENT care.: Yes I certify that my determination is in accordance with my understanding of Medicare's requirements for reasonable and necessary INPATIENT services [42 CFR 412.3e].: Yes Medical Necessity: Need Close Monitoring Due to Risk of Patient Decompensation, Need for Nebulizer Therapy and Monitoring of Response
[2017-08-19] MEDS: MONTELUKAST SODIUM 10 MG TABLET PO SCH (22:23)
[2017-08-19] MEDS: SIMVASTATIN 40 MG TABLET PO SCH (22:23)
[2017-08-20] MEDS: IPRATROPIUM/ALBUTEROL 0.5-2.5 MG/3 ML AMPUL NEB SCH ×2 (01:45→08:09)
[2017-08-20] MEDS: RINGERS SOLUTION,LACTATED 1,000 ML IV PRN (04:20)
[2017-08-20] MEDS: ACETAMINOPHEN 325 MG TABLET PO PRN (04:24)
[2017-08-20] MEDS: METHYLPREDNISOLONE INJ 40 MG/1 ML SDV IV SCH (05:03)
[2017-08-20] MEDS: ONDANSETRON 4 MG TAB.RAPDIS PO PRN (05:03)
[2017-08-20] MEDS ORDERED: BUTALB/ACETAMINOPHEN/CAFFEINE 1 TAB EACH PO PRN (09:06)
[2017-08-20] MEDS: FAMOTIDINE 20 MG TABLET PO SCH ×2 (09:32→22:26)
[2017-08-20] MEDS: PREDNISONE 20 MG TABLET PO SCH ×2 (09:32→17:18)
[2017-08-20] MEDS: ENOXAPARIN SODIUM INJ 40 MG/0.4 ML DISP.SYRIN SUBCUT SCH (09:33)
[2017-08-20] MEDS: FLUTICASONE NASAL SPRAY 50 MCG/SPRY 120 SPRAY/16 GM NASL SCH ×2 (09:37→22:28)
[2017-08-20] MEDS: IBUPROFEN 600 MG TABLET PO PRN (09:38)
--- NOTE | 2017-08-20 14:43 | PDOC PROGRESS REPORT ---
Subjective Progress Note for:: 08/20/17 Subjective:: Patient is seen on rounds as follow-up for status asthmaticus. She is seen resting in bed comfortably on room air. Upon entering the room, she is found to be lying supine talking on the phone and is noted to be fully conversational. She states that she feels that her breathing status improved significantly overnight. She reports she is only having intermittent wheezing and feels that the nebulizer treatments are helpful for a longer period of time. She continues to have an intermittent, global, tension-like headache that she states is typical for her especially when on steroid therapy. She further comments that she has begun her menses and that she frequently has migraine- like headaches at this time. She states that her headache is much improved as compared to yesterday. She denies fever, chills, chest pain, palpitation, abdominal pain, nausea, vomiting. She has no other questions or concerns this morning. Reason For Visit: ASTHMA EXACERBATION Physical Exam Vital Signs: Temp Pulse Resp BP Pulse Ox 97.9 F 57 L 16 141/104 H 99 08/20/17 12:15 08/20/17 12:15 08/20/17 12:15 08/20/17 12:15 08/20/17 12:15 Intake & Output 08/19/17 08/20/17 08/21/17 06:59 06:59 06:59 Intake Total 4481 4303 469 Output Total 11 500 Balance 4470 4303 -31 Weight 112.7 kg 112.6 kg General appearance: PRESENT: no acute distress, obese, well-developed, well- nourished Head exam: PRESENT: atraumatic, normocephalic Eye exam: PRESENT: conjunctiva pink, EOMI, PERRLA. ABSENT: scleral icterus Ear exam: PRESENT: normal external ear exam Mouth exam: PRESENT: moist, tongue midline Neck exam: ABSENT: carotid bruit, JVD, lymphadenopathy, thyromegaly Respiratory exam: PRESENT: clear to auscultation haritha, symmetrical, unlabored. ABSENT: rales, rhonchi, wheezes Cardiovascular exam: PRESENT: RRR, +S1, +S2. ABSENT: diastolic murmur, rubs, systolic murmur Pulses: PRESENT: normal dorsalis pedis pul Vascular exam: PRESENT: normal capillary refill GI/Abdominal exam: PRESENT: normal bowel sounds, soft. ABSENT: distended, guarding, mass, organolmegaly, rebound, tenderness Rectal exam: PRESENT: deferred Extremities exam: PRESENT: full ROM. ABSENT: calf tenderness, clubbing, pedal edema Neurological exam: PRESENT: alert, awake, oriented to person, oriented to place , oriented to time, oriented to situation, CN II-XII grossly intact. ABSENT: motor sensory deficit Psychiatric exam: PRESENT: appropriate affect, normal mood. ABSENT: homicidal ideation, suicidal ideation Skin exam: PRESENT: dry, intact, warm. ABSENT: cyanosis, rash Results Laboratory Results: 08/17/17 05:55 08/18/17 04:07 08/17/17 20:09 Sputum Gram Stain - Final 08/17/17 20:09 Sputum Sputum Culture - Final NORMAL CM Impressions: Chest X-Ray 08/16/17 16:46 IMPRESSION: NO SIGNIFICANT RADIOGRAPHIC FINDING IN THE CHEST. Assessment & Plan - Diagnosis (1) Status asthmaticus Qualifiers: Asthma severity: moderate Asthma persistence: persistent Qualified Code(s ): J45.42 - Moderate persistent asthma with status asthmaticus Is this a current diagnosis for this admission?: Yes Plan: Improved. Likely stable for d/c in the morning. Patient with relief of bronchospasm is following receiving IV ketamine while still in the ED. At that time, she was also treated with IV Solu-Medrol and magnesium. She is now resting comfortably and maintaining oxygen saturations while on room air. We will continue Duoneb and Xopenex nebulizer treatments as needed. Will transition pt to p.o. steroids today and monitor for relapse of symptoms. There are no indications for antibiotics at this time. Sputum and blood cultures: No growth at 48 hours. Smoking cessation was encouraged. 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 Will ask urban and regional planner and patient navigator to meet with patient to discuss community resources, financial and insurance eligibility. Pt will need an ICS/LABA on discharge, however, is a self pay patient and this presents a significant financial barrier. (2) Acute hypoxemic respiratory failure Is this a current diagnosis for this admission?: Yes Plan: Resolved. Patient is now maintaining oxygen saturations greater than 94% while on room air. Continue plan as above. (3) GERD (gastroesophageal reflux disease) Qualifiers: Esophagitis presence: without esophagitis Qualified Code(s): K21.9 - Gastro -esophageal reflux disease without esophagitis Is this a current diagnosis for this admission?: Yes Plan: Continue Pepcid twice daily. (4) Hx of anxiety disorder Is this a current diagnosis for this admission?: No (5) Tobacco abuse Is this a current diagnosis for this admission?: Yes Plan: Patient is encouraged to stop using tobacco products. Nicotine replacement therapy is offered and declined at this time. (6) Headache Qualifiers: Headache type: tension-type Is this a current diagnosis for this admission?: Yes Plan: Improved following a one-time dose of IV Toradol and IV Benadryl yesterday. Will trial fioricet. Encourage fluids and nonpharmacological pain relief measures. - Time Time Spent with patient: 15-24 minutes Anticipated discharge: Home Within: within 24 hours - Inpatient Certification Based on my medical assessment, after consideration of the patient's comorbidities, presenting symptoms, or acuity I expect that the services needed warrant INPATIENT care.: Yes I certify that my determination is in accordance with my understanding of Medicare's requirements for reasonable and necessary INPATIENT services [42 CFR 412.3e].: Yes Medical Necessity: Need for Nebulizer Therapy and Monitoring of Response
[2017-08-20] MEDS ORDERED: IPRATROPIUM/ALBUTEROL 0.5-2.5 MG/3 ML AMPUL NEB SCH (16:00)
[2017-08-20] MEDS: IPRATROPIUM/ALBUTEROL 0.5-2.5 MG/3 ML AMPUL NEB PRN (19:50)
[2017-08-20] MEDS: SIMVASTATIN 40 MG TABLET PO SCH (22:26)
[2017-08-20] MEDS: MONTELUKAST SODIUM 10 MG TABLET PO SCH (22:27)
[2017-08-21] MEDS: IPRATROPIUM/ALBUTEROL 0.5-2.5 MG/3 ML AMPUL NEB PRN (01:42)
[2017-08-21] MEDS: IBUPROFEN 600 MG TABLET PO PRN ×2 (02:00→09:16)
[2017-08-21] MEDS ORDERED: ALBUTEROL SULFATE HFA (90 MCG/PUFF) 8 GM MDI (1 MDI/ER DISP) IH PRN (08:31)
[2017-08-21] MEDS ORDERED: ALBUTEROL SULFATE 0.083% NEB 2.5 MG/3 ML AMPUL NEB PRN ×2 (08:32→08:33)
[2017-08-21] MEDS ORDERED: ALBUTEROL SULFATE HFA (90 MCG/PUFF) 200 PUFF/8.5 GM MDI IH PRN (08:48)
[2017-08-21] MEDS: FAMOTIDINE 20 MG TABLET PO SCH (09:16)
[2017-08-21] MEDS: FLUTICASONE NASAL SPRAY 50 MCG/SPRY 120 SPRAY/16 GM NASL SCH (09:17)
[2017-08-21] MEDS: ENOXAPARIN SODIUM INJ 40 MG/0.4 ML DISP.SYRIN SUBCUT SCH (09:18)
[2017-08-21] MEDS ORDERED: FLUTICASONE/SALMETEROL DISKUS 250-50 MCG/DOSE IH SCH (10:00)
[2017-08-21] MEDS ORDERED: PREDNISONE 20 MG TABLET PO SCH (10:00)
[2017-08-21 10:57] VITALS: BP 141/104
--- NOTE | 2017-08-21 11:54 | PDOC DISCHARGE SUMMARY ---
General - Admit/Disc Date/PCP Admission Date/Primary Care Provider: 08/16/17 21:01 Discharge Date: 08/21/17 - Discharge Diagnosis (1) Status asthmaticus Is this a current diagnosis for this admission?: Yes Summary: The patient presented to the emergency department in acute hypoxic respiratory failure secondary to status asthmaticus. She required IV Solu-Medrol, IV magnesium, and ketamine to achieve relief of her bronchospasm. She was placed on scheduled duo nebs with Xopenex as needed, IV steroids, and supplemental oxygen. The patient continues to smoke approximately 1 pack per day and she was strongly encouraged to discontinue tobacco use. Her respiratory status improved rapidly and she has been stable on room air for the past 2 days. She was successfully transitioned to p.o. prednisone 24 hours ago without relapse of symptoms. Sputum and blood cultures have no growth at 4 days. She is now stable for discharge and will be provided prescriptions for Advair, albuterol, Singulair, and a prednisone taper. (2) Acute hypoxemic respiratory failure Is this a current diagnosis for this admission?: Yes Summary: Secondary to status asthmaticus. Now resolved. Hospital course as above. (3) GERD (gastroesophageal reflux disease) Is this a current diagnosis for this admission?: No Summary: Pepcid bid. Adequate control of symptoms was maintained. (4) Hx of anxiety disorder Is this a current diagnosis for this admission?: No (5) Tobacco abuse Is this a current diagnosis for this admission?: Yes Summary: Patient was strongly encouraged to stop using tobacco products. Nicotine replacement therapy was offered and declined. (6) Headache Is this a current diagnosis for this admission?: Yes Summary: Improved following a one-time dose of IV Toradol and Benadryl. The patient states that this headache is typical for her when on high-dose steroids. - Additional Information Resuscitation Status: Full Code Discharge Diet: As Tolerated Discharge Activity: Activity As Tolerated, Slowly Increase Activity Home Medications: Albuterol Sulfate [Proair HFA] 1 puff IH Q4HP PRN #1 [email or web address] 08/21/17 Albuterol Sulfate [Ventolin 0.083% Neb 2.5 mg/3 mL Ampul] 2.5 mg NEB [id number] PRN #60 vial.neb 08/21/17 Azithromycin [Zithromax 250 mg Tablet] 250 mg PO ASDIR PRN #6 tablet 08/21/17 Fluticasone/Salmeterol [Advair 250-50 Diskus 14 Dose/Diskus] 1 inh IH Q12 #2 inhaler 08/21/17 Montelukast Sodium [Singulair 10 mg Tablet] 10 mg PO QHS #30 tablet 08/21/17 Prednisone [Deltasone 20 mg Tablet] 20 mg PO ASDIR PRN #20 tablet 08/21/17 Simvastatin [Zocor 40 mg Tablet] 40 mg PO QHS #30 tablet 08/21/17 History of Present Illness History of Present Illness: Per H&P by Dr. Corley: ISHA REDMOND is a 42 year old female with a PMH of asthma who presents with several days of increased wheezing and shortness of breath. Patient reports she almost passed out today because she could not breathe. Patient has had 20 mg of albuterol, prednisone 2 g of magnesium and fluids. Patient is referred to hospital service for status asthmaticus Physical Exam Vital Signs: Temp Pulse Resp BP Pulse Ox 97.8 F 58 L 14 141/104 H 97 08/21/17 10:55 08/21/17 11:10 08/21/17 11:10 08/21/17 10:55 08/21/17 11:10 Intake & Output 08/20/17 08/21/17 08/22/17 06:59 06:59 06:59 Intake Total 4303 2568 Output Total 500 Balance 4303 2068 Weight 112.6 kg 109.9 kg General appearance: PRESENT: no acute distress, obese, well-developed, well- nourished Head exam: PRESENT: atraumatic, normocephalic Eye exam: PRESENT: conjunctiva pink, EOMI, PERRLA. ABSENT: scleral icterus Ear exam: PRESENT: normal external ear exam Mouth exam: PRESENT: moist, tongue midline Neck exam: ABSENT: carotid bruit, JVD, lymphadenopathy, thyromegaly Respiratory exam: PRESENT: symmetrical, unlabored, wheezes - Slight end- expiratory wheezing throughout. ABSENT: rales, rhonchi Cardiovascular exam: PRESENT: RRR, +S1, +S2. ABSENT: diastolic murmur, rubs, systolic murmur Pulses: PRESENT: normal dorsalis pedis pul Vascular exam: PRESENT: normal capillary refill GI/Abdominal exam: PRESENT: normal bowel sounds, soft. ABSENT: distended, guarding, mass, organolmegaly, rebound, tenderness Rectal exam: PRESENT: deferred Extremities exam: PRESENT: full ROM. ABSENT: calf tenderness, clubbing, pedal edema Neurological exam: PRESENT: alert, awake, oriented to person, oriented to place , oriented to time, oriented to situation, CN II-XII grossly intact. ABSENT: motor sensory deficit Psychiatric exam: PRESENT: appropriate affect, normal mood. ABSENT: homicidal ideation, suicidal ideation Skin exam: PRESENT: dry, intact, warm. ABSENT: cyanosis, rash Results Laboratory Results: 08/17/17 05:55 08/18/17 04:07 Impressions: Chest X-Ray 08/16/17 16:46 IMPRESSION: NO SIGNIFICANT RADIOGRAPHIC FINDING IN THE CHEST. Qualifiers PATEINT BEING DISCHARGED WITH ANY OF THE FOLLOWING DIAGNOSIS?: No Plan Discharge Plan: Discharge to home with self care. To follow up with PCP in 1-2 weeks.
== END 2017-08-21 12:30 | disposition home or self-care (01) | DRG 189 ==
LOC: ER 15:03 → EH 21:01 → 3W 08-17 16:36
PROVIDERS: ADMIT Family Medicine; ATTEND Family Medicine
DX: J96.01 Acute respiratory failure with hypoxia (principal); J45.42 Moderate persistent asthma with status asthmaticus; K21.9 Gastro-esophageal reflux disease without esophagitis; F41.9 Anxiety disorder, unspecified; R51 Headache; F32.9 Major depressive disorder, single episode, unspecified; F43.10 Post-traumatic stress disorder, unspecified; Z79.899 Other long term (current) drug therapy; F17.200 Nicotine dependence, unspecified, uncomplicated
CPT/HCPCS: 36415; 36600; 71020; 80048; 80053; 80061; 82803; 83735; 84703; 85025; 85027; 87040; 87070; 87205; 94640; 99291; J1200; J1650; J1885; J2060; J2920; J2930; J3475; J3490; J7120; J7512; J7620; S0119

== ENCOUNTER 2017-09-24 22:55 | Emergency (ER) | payer SELFPAY ==
[2017-09-24] MEDS ORDERED: IPRATROPIUM/ALBUTEROL 0.5-2.5 MG/3 ML AMPUL NEB ONE (23:14)
[2017-09-24] MEDS ORDERED: PREDNISONE 20 MG TABLET PO ONE (23:14)
[2017-09-24] MEDS ORDERED: ALBUTEROL SULFATE 0.083% NEB 2.5 MG/3 ML AMPUL NEB SCH (23:29)
--- NOTE | 2017-09-25 00:55 | RADIOLOGY REPORT (SQ) ---
EXAM DESCRIPTION: CHEST PA/LAT CLINICAL HISTORY: ASTHMA COMPARISON: 08/16/2017 FINDINGS: Frontal and lateral views of the chest. The cardiomediastinal silhouette has normal size and contour. No consolidation, pneumothorax, or pleural effusion. No displaced rib fractures identified. Upper abdominal soft tissues are unremarkable. IMPRESSION: 1. No acute pulmonary process identified.
[2017-09-25] MEDS ORDERED: IPRATROPIUM/ALBUTEROL 0.5-2.5 MG/3 ML AMPUL NEB ONE (02:13)
[2017-09-25] MEDS ORDERED: MAGNESIUM SULFATE/D5W 1 GM/100 ML RTUPB IV SCH (02:15)
--- NOTE | 2017-09-25 02:23 | ER Document Report ---
ED General - General Chief Complaint: Shortness Of Breath Stated Complaint: DIFFICUTLY BREATHING Time Seen by Provider: 09/25/17 02:00 TRAVEL OUTSIDE OF THE [place] IN LAST 30 DAYS: No - HPI Notes: Patient is a 42-year-old female with a history of asthma who presents to the ED complaining of an acute exacerbation of her asthma x2 days. Patient states that she was exposed to 1 of her allergens, dogs, which flared up her wheezing. Patient states that she has been using her albuterol treatments regularly on the our to try to keep her symptoms controlled. Patient states that she knows that she drops in the 80s on her oxygen saturation when she is sleeping during acute exacerbation so she wanted to come here to get evaluated. Patient states that she does continue to have wheezing and trouble breathing. Patient denies any other recent illness. She has been eating and drinking without any difficulties. She is urinating normally and having normal bowel movements. Patient states that she does have an appointment in about 10 days with her PCM. Denies any headache, fever, URI, sore throat, chest pain, palpitations, syncope, abdominal pain, nausea/vomiting/diarrhea, urinary retention, dysuria, hematuria, loss of control of bowel or bladder, numbness/tingling, muscle paralysis/weakness, or rash. - Related Data Allergies/Adverse Reactions: codeine Allergy (Verified 08/16/17 15:03) latex Allergy (Verified 08/16/17 15:03) RASH, SWOLLEN TONGUE Past Medical History - Social History Smoking Status: Current Some Day Smoker Family History: Arthritis, CAD, CVA, DM, Hyperlipidemia, Hypertension, Malignancy, Thyroid Disfunction Pulmonary Medical History: Reports: Hx Asthma Renal/ Medical History: Denies: Hx Peritoneal Dialysis GI Medical History: Reports: Hx Gastroesophageal Reflux Disease Psychiatric Medical History: Reports: Hx Anxiety, Hx Depression, Hx Post Traumatic Stress Disorder Past Surgical History: Reports: Hx Adenoidectomy, Hx Tonsillectomy, Hx Tubal Ligation - Immunizations Hx Diphtheria, Pertussis, Tetanus Vaccination: Yes Review of Systems - Review of Systems Notes: REVIEW OF SYSTEMS: CONSTITUTIONAL : Denies fever, chills, or sweats. Denies recent illness. EENT: Denies eye, ear, throat, or mouth pain or symptoms. Denies nasal or sinus congestion or discharge. Denies throat, tongue, or mouth swelling or difficulty swallowing. CARDIOVASCULAR: Denies chest pain. Denies palpitations or racing or irregular heart beat. Denies ankle edema. RESPIRATORY: see hpi GASTROINTESTINAL: Denies abdominal pain or distention. Denies nausea, vomiting , or diarrhea. Denies blood in vomitus, stools, or per rectum. Denies black, tarry stools. Denies constipation. GENITOURINARY: Denies difficulty urinating, painful urination, burning, frequency, blood in urine, or discharge. MUSCULOSKELETAL: Denies back or neck pain or stiffness. Denies joint pain or swelling. SKIN: Denies rash, lesions or sores. NEUROLOGICAL: Denies confusion or altered mental status. Denies passing out or loss of consciousness. Denies dizziness or lightheadedness. Denies headache. Denies weakness or paralysis or loss of use of either side. Denies problems with gait or speech. Denies sensory loss, numbness, or tingling. Denies seizures. ALL OTHER SYSTEMS REVIEWED AND NEGATIVE. Dictation was performed using [employer] voice recognition software Physical Exam - Vital signs Vitals: Temp Pulse Resp BP Pulse Ox 98.3 F 104 H 24 H 125/59 L 97 09/24/17 23:13 09/24/17 23:13 09/24/17 23:13 09/24/17 23:13 09/24/17 23:13 Notes: PHYSICAL EXAMINATION: GENERAL: Well-appearing, well-nourished and in no acute distress. A&ox4, answers questions appropriately. Currently, pt is able to speak 5-6 word sentences. No obvious retractions noted. HEAD: Atraumatic, normocephalic. EYES: Pupils equal round and reactive to light, extraocular movements intact, sclera anicteric, conjunctiva are normal. ENT: Nares patent and without discharge. oropharynx clear without exudates. No tonsilar hypertrophy or erythema. Moist mucous membranes. NECK: Normal range of motion, supple without lymphadenopathy LUNGS: decreased air movement. Prolonged expiration. Wheezes b/l. Mild retraction noted with inspirations. HEART: Regular rate and rhythm without murmurs, rubs, gallops. Musculoskeletal: FROM to passive/active. Strength 5+/5. Extremities: No cyanosis, clubbing, or edema b/l. Peripheral pulses 2+. Capillary refill less than 3 seconds. NEUROLOGICAL: Cranial nerves grossly intact. Normal speech, normal gait. Normal sensory, motor exams PSYCH: Normal mood, normal affect. SKIN: Warm, Dry, normal turgor, no rashes or lesions noted. Course - Re-evaluation Re-evalutation: 09/25/17 02:44 Patient is an afebrile, well-hydrated, 42-year-old female who presents to the ED with an acute exacerbation of her asthma. Pt noted to have mild retractions and dec air movement on exam with b/l wheezes. Pt has been tachypneic and on occ tachycardic, but is able to speak in 5-6 word sentences at this time w/o difficulty. Pt did receive 60mg prednisone as well as a duoneb and alb neb treatment prior to my eval. We will order for another duoneb along with decadron and magnesium IV. We will monitor closely for now. 09/25/17 03:46 Pt resting with an O2 saturation at 92% on RA, HR in the low 90's. Mild retractions still noted on inspiration. Wheezing b/l and dec air movement noted to auscultation. Pt states that she feels similar to before treatment. We will ambulate with o2 sat. on RA for further evaluation. 09/25/17 04:27 Pt sat around 92-94% on RA with ambulation, but became tachycardic up to 110 and mildly tachypneic 24. Pt would like to stay at the hospital for treatment. I will review with Dr. Corley for admit. 09/25/17 04:[address] Corley who accepts patient to tele inpatient. Pt in agreement. - Vital Signs Vital signs: Temp Pulse Resp BP Pulse Ox 98.3 F 104 H 19 121/70 93 09/24/17 23:13 09/24/17 23:13 09/25/17 04:01 09/25/17 04:01 09/25/17 04:01 - Laboratory Result Diagrams: 09/25/17 02:50 09/25/17 02:50 Laboratory results interpreted by me: 09/25/17 09/25/17 02:50 02:50 WBC 10.6 H RDW 14.3 H Potassium 3.4 L Chloride 108 H Discharge - Discharge Clinical Impression: Asthma exacerbation Qualifiers: Asthma severity: moderate Asthma persistence: persistent Qualified Code(s): J45.41 - Moderate persistent asthma with (acute) exacerbation Condition: Stable Disposition: ADMITTED INPATIENT Admitting Provider: Hospitalist - Dr. Corley Unit Admitted: Telemetry
[2017-09-25 03:06] LABS: ABSOLUTE BASOPHILS # (AUTO) 0.1 10^3/uL (0.0-0.2); ABSOLUTE EOSINOPHILS # (AUTO) 0.2 10^3/uL (0.0-0.6); ABSOLUTE LYMPHOCYTES (AUTO) 3.1 10^3/uL (0.5-4.7); ABSOLUTE MONOCYTES (AUTO) 0.4 10^3/uL (0.1-1.4); ABSOLUTE NEUT (AUTO) 6.7 10^3/uL (1.7-8.2); BASOPHILS % (AUTO) 1.2 % (0-2); HEMATOCRIT 39.1 % (36.0-47.0); HEMOGLOBIN 13.2 g/dL (12.0-15.5); LYMPHOCYTES % (AUTO) 29.3 % (13-45); MEAN CORPUSCULAR HEMOGLOBIN 29.1 pg (27.0-33.4); MEAN CORPUSCULAR HGB CONC 33.8 g/dL (32.0-36.0); MEAN CORPUSCULAR VOLUME 86 fl (80-97); MONOCYTES % (AUTO) 4.2 % (3-13); PLATELET COUNT 359 10^3/uL (150-450); RED BLOOD COUNT 4.54 10^6/uL (3.72-5.28); RED CELL DISTRIBUTION WIDTH 14.3 % (11.5-14.0); SEGMENTED NEUTROPHILS % (AUTO) 63.3 % (42-78); TOTAL CELLS COUNTED % (AUTO) 100 %; WHITE BLOOD COUNT 10.6 10^3/uL (4.0-10.5)
[2017-09-25 03:14] LABS: VENOUS BLOOD BASE EXCESS 0.6 mmol/L; VENOUS BLOOD HCO3 25.5 mmol/L (20-32); VENOUS BLOOD PH 7.4 (7.30-7.42)
[2017-09-25 03:31] LABS: ALANINE AMINOTRANSFERASE 21 U/L (9-52); ALKALINE PHOSPHATASE 121 U/L (38-126); ANION GAP 11 (5-19); ASPARTATE AMINO TRANSFERASE 32 U/L (14-36); BILIRUBIN,DIRECT 0.3 mg/dL (0.0-0.4); BILIRUBIN,TOTAL 0.5 mg/dL (0.2-1.3); BLOOD UREA NITROGEN 13 mg/dL (7-20); CALCIUM 9.6 mg/dL (8.4-10.2); CARBON DIOXIDE 24 mmol/L (22-30); CHLORIDE 108 mmol/L (98-107); GLUCOSE 104 mg/dL (75-110); POTASSIUM 3.4 mmol/L (3.6-5.0); SODIUM 142.6 mmol/L (137-145)
[2017-09-25] MEDS ORDERED: ACETAMINOPHEN 325 MG TABLET PO PRN (04:53)
[2017-09-25] MEDS ORDERED: LEVALBUTEROL HCL NEB 1.25 MG/3 ML AMPUL NEB PRN (04:53)
[2017-09-25] MEDS ORDERED: POTASSIUM CHLORIDE 10 MEQ TABLET.SA PO ONE (05:30)
[2017-09-25] MEDS ORDERED: ONDANSETRON HCL INJ/PF 4 MG/2 ML SDV ONE (05:39)
[2017-09-25 05:52] VITALS: BP 121/61
[2017-09-25] MEDS ORDERED: IPRATROPIUM/ALBUTEROL 0.5-2.5 MG/3 ML AMPUL NEB SCH (08:00)
[2017-09-25] MEDS ORDERED: ENOXAPARIN SODIUM INJ 40 MG/0.4 ML DISP.SYRIN SUBCUT SCH (10:00)
[2017-09-25] MEDS ORDERED: DOXYCYCLINE HYCLATE 100 MG TABLET PO SCH (10:00)
[2017-09-25] MEDS ORDERED: GUAIFENESIN 600 MG TABLET.SA PO SCH (10:00)
== END 2017-09-25 06:00 | disposition home or self-care (01) ==
LOC: ER 22:55 → UNDOADMIN 09-25 04:41 → EH 09-25 04:41 → ER 09-25 06:00
DX: J45.41 Moderate persistent asthma with (acute) exacerbation (principal); R06.02 Shortness of breath; F17.200 Nicotine dependence, unspecified, uncomplicated
CPT/HCPCS: 94640 ×2; 99285; 36415; 85025; 80053; 82803; 71046; J3475; J7512; J2405; J7620

== ENCOUNTER → 2017-12-28 | Outpatient (CLI) | payer OTHER ==
--- NOTE | 2017-12-28 12:31 | WOMENS IMAGING REPORT ---
EXAM DESCRIPTION: BILAT SCREENING MAMMO W/CAD COMPLETED DATE/TIME: 12/28/2017 9:40 am REASON FOR STUDY: SCREENING MAMMO Z12.31 ENCNTR SCREEN MAMMOGRAM FOR MALIGNANT NEOPLASM OF MARY LOU COMPARISON: None. TECHNIQUE: Standard craniocaudal and mediolateral oblique views of each breast recorded using digita l acquisition. LIMITATIONS: None. FINDINGS: No masses, calcifications or architectural distortion. No areas of suspicion. Read with the assistance of CAD. .[facility] - R2 Cenova Version 1.3 .[facility] - R2 Cenova Version 1.3 .[facility] - R2 Cenova Version 2.4 .[facility] - R2 Cenova Version 2.4 .[facility] - R2 Trace Clerk Version 9.2 IMPRESSION: NORMAL MAMMOGRAM. BIRADS 1. BREAST DENSITY: b. There are scattered areas of fibroglandular density. BIRAD: 1 NEGATIVE RECOMMENDATION: ROUTINE SCREENING COMMENT: The patient has been notified of the results by letter per MQSA requirements. Additional no tification policies are in place for contacting patient with suspicious or incomplete findings. Quality ID #[id number]: The [employer] recommends an annual screening mammogram for women aged 40 years or over. This facility utilizes a reminder system to ensure that all patients receive reminder letters, and/or direct phone calls for appointments. This includes reminders for routine scr eening mammograms, diagnostic mammograms, or other Breast Imaging Interventions when appropriate. Th is patient will be placed in the appropriate reminder system. The [employer] (ACR) has developed recommendations for screening MRI of the breast s in certain patient populations, to be used in conjunction with mammography. Breast MRI surveillanc e may be appropriate for women with more than 20% lifetime risk of developing breast cancer as deter mined by genetic testing, significant family history of the disease, or history of mantle radiation f or Hodgkins Disease. ACR Practice Guidelines 2008. TECHNICAL DOCUMENTATION: FINDING NUMBER: (1) ASSESSMENT: (1) JOB ID: [id number] [employer]- All Rights Reserved Reading location - IP/workstation name: [email or web address]
== END ==
LOC: WI 09:08
PROVIDERS: ATTEND Family Medicine
DX: Z12.31 Encounter for screening mammogram for malignant neoplasm of breast (principal)
CPT/HCPCS: 77067

== ENCOUNTER 2018-07-22 11:49 | Observation (INO) | payer OTHER ==
[2018-07-22 13:19] LABS: ABSOLUTE BASOPHILS # (AUTO) 0.1 10^3/uL (0.0-0.2); ABSOLUTE EOSINOPHILS # (AUTO) 0.2 10^3/uL (0.0-0.6); ABSOLUTE LYMPHOCYTES (AUTO) 2.2 10^3/uL (0.5-4.7); ABSOLUTE MONOCYTES (AUTO) 0.6 10^3/uL (0.1-1.4); ABSOLUTE NEUT (AUTO) 5.6 10^3/uL (1.7-8.2); BASOPHILS % (AUTO) 1.4 % (0-2); EOSINOPHILS % (AUTO) 1.8 % (0-6); HEMATOCRIT 42.3 % (36.0-47.0); HEMOGLOBIN 14.5 g/dL (12.0-15.5); LYMPHOCYTES % (AUTO) 25.4 % (13-45); MEAN CORPUSCULAR HEMOGLOBIN 28.9 pg (27.0-33.4); MEAN CORPUSCULAR HGB CONC 34.2 g/dL (32.0-36.0); MEAN CORPUSCULAR VOLUME 84 fl (80-97); MONOCYTES % (AUTO) 6.8 % (3-13); PLATELET COUNT 337 10^3/uL (150-450); RED BLOOD COUNT 5.01 10^6/uL (3.72-5.28); RED CELL DISTRIBUTION WIDTH 15.6 % (11.5-14.0); SEGMENTED NEUTROPHILS % (AUTO) 64.6 % (42-78); TOTAL CELLS COUNTED % (AUTO) 100 %; WHITE BLOOD COUNT 8.7 10^3/uL (4.0-10.5)
[2018-07-22 13:26] LABS: ALANINE AMINOTRANSFERASE 15 U/L (9-52); ALBUMIN 4.3 g/dL (3.5-5.0); ALKALINE PHOSPHATASE 86 U/L (38-126); ANION GAP 14 (5-19); ASPARTATE AMINO TRANSFERASE 20 U/L (14-36); BILIRUBIN,DIRECT 0.5 mg/dL (0.0-0.4); BILIRUBIN,TOTAL 1.5 mg/dL (0.2-1.3); BLOOD UREA NITROGEN 10 mg/dL (7-20); CALCIUM 9.5 mg/dL (8.4-10.2); CARBON DIOXIDE 21 mmol/L (22-30); CHLORIDE 106 mmol/L (98-107); CREATINE KINASE 119 U/L (30-135); GLUCOSE 101 mg/dL (75-110); POTASSIUM 4.3 mmol/L (3.6-5.0); SODIUM 140.5 mmol/L (137-145); TOTAL PROTEIN 7.6 g/dL (6.3-8.2)
[2018-07-22 13:37] LABS: CREATINE KINASE MB 0.64 ng/mL (<4.55)
[2018-07-22 13:39] LABS: TROPONIN I < 0.012 ng/mL
--- NOTE | 2018-07-22 13:48 | EKG REPORT ---
SEVERITY:- NORMAL ECG - SINUS RHYTHM : Confirmed by: Siddharth Srinivasan MD 22-Jul-2018 13:48:37
[2018-07-22] MEDS ORDERED: METHYLPREDNISOLONE INJ 125 MG/2 ML SDV IV ONE (14:42)
[2018-07-22] MEDS ORDERED: IPRATROPIUM/ALBUTEROL 0.5-2.5 MG/3 ML AMPUL NEB ONE ×3 (14:42→16:08)
[2018-07-22] MEDS ORDERED: MAGNESIUM SULFATE/D5W 1 GM/100 ML RTUPB IV ONE ×2 (14:43→16:09)
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
--- NOTE | 2018-07-22 14:55 | RADIOLOGY REPORT (SQ) ---
EXAM DESCRIPTION: CHEST SINGLE VIEW COMPLETED DATE/TIME: 07/22/2018 2:44 pm REASON FOR STUDY: sob COMPARISON: 09/25/2017 EXAM PARAMETERS: NUMBER OF VIEWS: One view. TECHNIQUE: Single frontal radiographic view of the chest acquired. RADIATION DOSE: NA LIMITATIONS: None. FINDINGS: LUNGS AND PLEURA: No opacities, masses or pneumothorax. No pleural effusion. MEDIASTINUM AND HILAR STRUCTURES: No masses. Contour normal. HEART AND VASCULAR STRUCTURES: Heart normal in size. Normal vasculature. BONES: No acute findings. HARDWARE: None in the chest. OTHER: No other significant finding. IMPRESSION: NO ACUTE RADIOGRAPHIC FINDING IN THE CHEST. TECHNICAL DOCUMENTATION: JOB ID: [id number] [employer]- All Rights Reserved Reading location - IP/workstation name: [email or web address]
[2018-07-22] MEDS ORDERED: IBUPROFEN 400 MG TABLET PO ONE (17:05)
[2018-07-22] MEDS ORDERED: ACETAMINOPHEN 325 MG TABLET PO PRN (18:04)
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
[2018-07-22] MEDS ORDERED: AZITHROMYCIN 250 MG TABLET PO SCH (19:00)
[2018-07-22] MEDS ORDERED: KETOROLAC TROMETHAMINE INJ/PF 30 MG/1 ML SDV IV ONE (19:00)
[2018-07-22] MEDS ORDERED: CYCLOBENZAPRINE HCL 10 MG TABLET PO PRN (19:35)
[2018-07-22] MEDS: IPRATROPIUM/ALBUTEROL 0.5-2.5 MG/3 ML AMPUL NEB SCH ×2 (19:46→23:51)
[2018-07-22] MEDS: HEPARIN SOD (PORCINE) 5,000 UNIT/ML 1 ML SYRINGE SUBCUT SCH (19:50)
[2018-07-22] MEDS: METHYLPREDNISOLONE INJ 40 MG/1 ML SDV IV SCH (21:42)
[2018-07-22] MEDS ORDERED: TRAZODONE HCL 50 MG TABLET PO SCH (22:00)
[2018-07-23] MEDS ORDERED: IBUPROFEN 400 MG TABLET PO PRN (03:55)
[2018-07-23] MEDS: IPRATROPIUM/ALBUTEROL 0.5-2.5 MG/3 ML AMPUL NEB SCH ×3 (03:59→11:41)
[2018-07-23] MEDS: METHYLPREDNISOLONE INJ 40 MG/1 ML SDV IV SCH (05:00)
[2018-07-23] MEDS: HEPARIN SOD (PORCINE) 5,000 UNIT/ML 1 ML SYRINGE SUBCUT SCH (05:00)
[2018-07-23] MEDS ORDERED: PREDNISONE 20 MG TABLET PO ONE (05:00)
[2018-07-23] MEDS ORDERED: ALPRAZOLAM 0.25 MG TABLET PO ONE (10:30)
[2018-07-23] MEDS ORDERED: KETOROLAC TROMETHAMINE INJ/PF 30 MG/1 ML SDV IV ONE (10:30)
[2018-07-23 13:28] VITALS: BP 121/72
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
== END 2018-07-23 14:54 | disposition home or self-care (01) ==
LOC: ER 11:49 → EH 17:38 → INTOOBSV 17:38 → 4S 19:17
PROVIDERS: ADMIT Internal Medicine; ATTEND Internal Medicine
DX: J44.1 Chronic obstructive pulmonary disease with (acute) exacerbation (principal); J45.901 Unspecified asthma with (acute) exacerbation; R07.9 Chest pain, unspecified; S40.022A Contusion of left upper arm, initial encounter; S40.021A Contusion of right upper arm, initial encounter; Y08.89XA Assault by other specified means, initial encounter; Y92.89 Other specified places as the place of occurrence of the external cause; Y99.0 Civilian activity done for income or pay; Z23 Encounter for immunization; Z87.891 Personal history of nicotine dependence; Z79.899 Other long term (current) drug therapy; Z82.49 Family history of ischemic heart disease and other diseases of the circulatory system
CPT/HCPCS: 93005; 94640 ×4; 99285; 96375; 96365; 96366; 36415; 82553; 82550; 83735; 85025; 80053; 84484; 71045; 90686; 93010; G0378 ×3; G0008; J1644; J3490 ×4; J2930; J1885 ×2; J3475; J7512; J7620 ×2; 90471

== ENCOUNTER 2018-10-07 23:48 | Inpatient (IN) | payer SELFPAY ==
[2018-10-08] MEDS ORDERED: IPRATROPIUM/ALBUTEROL 0.5-2.5 MG/3 ML AMPUL NEB ONE ×3 (00:09)
[2018-10-08] MEDS ORDERED: PREDNISONE 20 MG TABLET PO ONE (00:09)
--- NOTE | 2018-10-08 00:14 | ER Document Report ---
ED Medical Screen (RME) - General Chief Complaint: Asthma Exacerbation Stated Complaint: DIFFICULTY BREATHING Time Seen by Provider: 10/08/18 00:09 Notes: 43-year-old female with chief complaint of difficulty breathing and asthma exacerbation. Worsening for the past few days. Smokes occasionally, also around a lot of secondhand smoke. Home medications not working. Denies fever or sick symptoms. TRAVEL OUTSIDE OF THE [place] IN LAST 30 DAYS: No - Related Data Allergies/Adverse Reactions: codeine Allergy (Verified 08/16/17 15:03) latex Allergy (Verified 08/16/17 15:03) RASH, SWOLLEN TONGUE Past Medical History Pulmonary Medical History: Reports: Hx Asthma Renal/ Medical History: Denies: Hx Peritoneal Dialysis GI Medical History: Reports: Hx Gastroesophageal Reflux Disease Psychiatric Medical History: Reports: Hx Anxiety, Hx Depression, Hx Post Traumatic Stress Disorder Past Surgical History: Reports: Hx Adenoidectomy, Hx Tonsillectomy, Hx Tubal Ligation - Immunizations Hx Diphtheria, Pertussis, Tetanus Vaccination: Yes History of Influenza Vaccine for 06/2017 - 11/2017 Season: Yes Influenza Administration Date for 06/2017 - 11/2017 Season: 06/13/17 Physical Exam - Vital signs Vitals: Temp Pulse Resp BP Pulse Ox 98.1 F 98 24 H 148/86 H 96 10/07/18 23:53 10/07/18 23:53 10/07/18 23:53 10/07/18 23:53 10/07/18 23:53 - Respiratory Respiratory status: Labored, Tachypnea Breath sounds: Decreased air movement, Wheezing Course - Re-evaluation Re-evalutation: Patient with mild wheezing throughout, tachypnea, slightly labored breathing. She is not hypoxic. She does not exhibit severe distress. - Vital Signs Vital signs: Temp Pulse Resp BP Pulse Ox 98.1 F 98 24 H 148/86 H 96 10/07/18 23:53 10/07/18 23:53 10/07/18 23:53 10/07/18 23:53 10/07/18 23:53
[2018-10-08] MEDS ORDERED: RINGERS SOLUTION,LACTATED 1,000 ML IV ONE (03:02)
[2018-10-08] MEDS ORDERED: ALBUTEROL SULFATE 0.083% NEB 2.5 MG/3 ML AMPUL NEB ONE (03:02)
[2018-10-08] MEDS ORDERED: ONDANSETRON HCL INJ/PF 4 MG/2 ML SDV IV ONE (03:03)
[2018-10-08] MEDS ORDERED: LORAZEPAM INJ 2 MG/1 ML VIAL IV ONE (03:03)
--- NOTE | 2018-10-08 03:05 | ER Document Report ---
ED General - General Chief Complaint: Asthma Exacerbation Stated Complaint: DIFFICULTY BREATHING Time Seen by Provider: 10/08/18 00:09 Notes: Patient is a 43-year-old old female with a past medical history of asthma, anxiety, multiple previous hospitalizations secondary to asthma exacerbations although no previous intubations who presents complaining of 3-4 days of progressive worsening shortness of breath. Describes significant wheezing, coughing as well as posttussive emesis. States that she is been using her nebulizers at home without any improvement. States this feels similar to when she has required hospitalization in the past. Denies fever although does note that she has had a persistent, nonproductive cough. Has not seen her primary care doctor regarding today's concerns. TRAVEL OUTSIDE OF THE [place] IN LAST 30 DAYS: No - Related Data Allergies/Adverse Reactions: codeine Allergy (Verified 08/16/17 15:03) latex Allergy (Verified 08/16/17 15:03) RASH, SWOLLEN TONGUE Past Medical History - General Information source: Patient - Social History Smoking Status: Current Every Day Smoker Frequency of alcohol use: None Drug Abuse: None Lives with: Family Family History: Arthritis, CAD, CVA, DM, Hyperlipidemia, Hypertension, Malignancy, Thyroid Disfunction Patient has suicidal ideation: No Patient has homicidal ideation: No Pulmonary Medical History: Reports: Hx Asthma Renal/ Medical History: Denies: Hx Peritoneal Dialysis GI Medical History: Reports: Hx Gastroesophageal Reflux Disease Psychiatric Medical History: Reports: Hx Anxiety, Hx Depression, Hx Post Traumatic Stress Disorder Past Surgical History: Reports: Hx Adenoidectomy, Hx Tonsillectomy, Hx Tubal Lig ation - Immunizations Hx Diphtheria, Pertussis, Tetanus Vaccination: Yes Review of Systems - Review of Systems Notes: Constitutional: Negative for fever. HENT: Negative for sore throat. Eyes: Negative for visual changes. Cardiovascular: Negative for chest pain. Respiratory: Positive for shortness of breath. Gastrointestinal: Negative for abdominal pain, vomiting or diarrhea. Genitourinary: Negative for dysuria. Musculoskeletal: Negative for back pain. Skin: Negative for rash. Neurological: Negative for headaches, weakness or numbness. 10 point ROS negative except as marked above and in HPI. Physical Exam - Vital signs Vitals: Temp Pulse Resp BP Pulse Ox 98.1 F 98 24 H 148/86 H 96 10/07/18 23:53 10/07/18 23:53 10/07/18 23:53 10/07/18 23:53 10/07/18 23:53 Interpretation: Hypertensive, Tachypneic Notes: PHYSICAL EXAMINATION: GENERAL: In moderate respiratory distress, appears quite uncomfortable with labored breathing HEAD: Atraumatic, normocephalic. EYES: Pupils equal round and reactive to light, extraocular movements intact, sclera anicteric, conjunctiva are normal. ENT: nares patent, oropharynx clear without exudates. Moderately dry mucous membranes. NECK: Normal range of motion, supple without lymphadenopathy LUNGS: Coarse wheezing in all lung hunt with diminished air movement throughout. Unable to speak in complete sentences. Moderate respiratory distress breathing approximately 30 seconds/min HEART: Regular tachycardia without murmurs ABDOMEN: Soft, nontender, normoactive bowel sounds. No guarding, no rebound. No masses appreciated. EXTREMITIES: Normal range of motion, no pitting or edema. No cyanosis. NEUROLOGICAL: No focal neurological deficits. Moves all extremities spontaneously and on command. PSYCH: Anxious, somewhat agitated SKIN: Warm, Dry, normal turgor, no rashes or lesions noted. Course - Re-evaluation Re-evalutation: 10/08/18 03:03 Patient presents in moderate respiratory distress, unable to speak in complete sentences, wheezing with diminished air movement in all lung hunt. She has already received 3 duo nebulizers prior to my assessment as well as 60 mg of oral prednisone. Saturating 94-95% on room air at the time of my assessment. Patient has a history of recurrent hospitalizations secondary to underlying asthma and apparently COPD as well but is never required intubation. The patient initially was very hesitant to remain in the emergency department, was agitated about how long she has been here and does not feel she has received adequate treatment prior to my assessment. I was able to convince the patient to remain in the emergency department for ongoing treatments particular given the relatively severe nature of her ongoing asthma exacerbation despite receiving multiple nebulizers and oral steroids prior to my assessment. We will place an IV, give the patient IV magnesium, give continuous albuterol nebulizers, IV fluids, Zofran as patient has had nausea and vomiting secondary to coughing, obtain chest x-ray and labs. Patient is in guarded condition, will require frequent reassessments. 10/08/18 03:39 Patient's work of breathing is unchanged currently on continuous nebulizers. Will continue to reassess. 10/08/18 04:04 Patient has not improved on continuous nebulizers and despite infusion of 2 g of magnesium. At this point will transition to BiPAP with in-line nebulizers. Given that patient has continued to fail to improve on 3 separate reassessments I have contacted the hospitalist Dr. Bae who has accepted the patient for admission. - Vital Signs Vital signs: Temp Pulse Resp BP Pulse Ox 98.1 F 98 24 H 148/86 H 95 10/07/18 23:53 10/07/18 23:53 10/07/18 23:53 10/07/18 23:53 10/08/18 02:33 - Laboratory Result Diagrams: 10/08/18 03:33 10/08/18 03:33 Laboratory results interpreted by me: 10/08/18 10/08/18 03:33 03:33 WBC 11.7 H RDW 15.0 H Seg Neutrophils % 88.8 H Lymphocytes % 7.3 L Monocytes % 1.6 L Absolute Neutrophils 10.4 H Chloride 110 H Glucose 111 H - Diagnostic Test Radiology reviewed: Image reviewed, Reports reviewed Radiology results interpreted by me: 10/08/18 04:07 Chest x-ray: No acute infiltrate or pneumothorax Critical Care Note - Critical Care Note Total time excluding time spent on procedures (mins): 36 Comments: Critical care time spent obtaining history from patient or surrogate, discussions with consultants, development of treatment plan with patient or surrogate, evaluation of patient's response to treatment, examination of patient, ordering and performing treatments and interventions, ordering and review of laboratory studies, re-evaluation of patient's condition, ordering and review of radiographic studies and review of old charts Discharge - Discharge Clinical Impression: Acute hypoxemic respiratory failure, Tobacco abuse, Respiratory distress Status asthmaticus Qualifiers: Asthma severity: severe Asthma persistence: persistent Qualified Code(s): J45.52 - Severe persistent asthma with status asthmaticus Condition: Fair Disposition: ADMITTED INPATIENT Admitting Provider: Hospitalist Unit Admitted: Telemetry
[2018-10-08] MEDS: MAGNESIUM SULFATE/D5W 1 GM/100 ML RTUPB IV SCH ×2 (03:26→03:53)
[2018-10-08 03:42] LABS: ABSOLUTE BASOPHILS # (AUTO) 0.1 10^3/uL (0.0-0.2); ABSOLUTE EOSINOPHILS # (AUTO) 0.2 10^3/uL (0.0-0.6); ABSOLUTE LYMPHOCYTES (AUTO) 0.9 10^3/uL (0.5-4.7); ABSOLUTE MONOCYTES (AUTO) 0.2 10^3/uL (0.1-1.4); ABSOLUTE NEUT (AUTO) 10.4 10^3/uL (1.7-8.2); BASOPHILS % (AUTO) 0.8 % (0-2); EOSINOPHILS % (AUTO) 1.5 % (0-6); HEMATOCRIT 42.7 % (36.0-47.0); HEMOGLOBIN 14.5 g/dL (12.0-15.5); LYMPHOCYTES % (AUTO) 7.3 % (13-45); MEAN CORPUSCULAR HEMOGLOBIN 28.8 pg (27.0-33.4); MEAN CORPUSCULAR HGB CONC 34.1 g/dL (32.0-36.0); MEAN CORPUSCULAR VOLUME 84 fl (80-97); MONOCYTES % (AUTO) 1.6 % (3-13); PLATELET COUNT 333 10^3/uL (150-450); RED BLOOD COUNT 5.05 10^6/uL (3.72-5.28); SEGMENTED NEUTROPHILS % (AUTO) 88.8 % (42-78); TOTAL CELLS COUNTED % (AUTO) 100 %; WHITE BLOOD COUNT 11.7 10^3/uL (4.0-10.5)
[2018-10-08 03:54] LABS: ANION GAP 6 (5-19); BLOOD UREA NITROGEN 12 mg/dL (7-20); CALCIUM 9.2 mg/dL (8.4-10.2); CARBON DIOXIDE 24 mmol/L (22-30); CHLORIDE 110 mmol/L (98-107); GLUCOSE 111 mg/dL (75-110); POTASSIUM 4.3 mmol/L (3.6-5.0); SODIUM 140.3 mmol/L (137-145)
--- NOTE | 2018-10-08 04:02 | RADIOLOGY REPORT (SQ) ---
EXAM DESCRIPTION: XR CHEST 1 VIEW COMPLETED DATE/TME: 10/08/2018 03:03 CLINICAL HISTORY: 43 years, Female, sob, asthma COMPARISON: None. NUMBER OF VIEWS: One TECHNIQUE: AP view LIMITATIONS: None. FINDINGS: Lungs are clear. There are no pleural abnormalities. The cardiac silhouette and pulmonary vessels are normal. IMPRESSION: No acute cardiopulmonary disease. copyright 2010 [employer]- All Rights Reserved
[2018-10-08 04:17] LABS: A TYPE INFLUENZA AG NEGATIVE (NEGATIVE)
[2018-10-08 04:18] LABS: B INFLUENZA AG NEGATIVE (NEGATIVE)
[2018-10-08] MEDS ORDERED: MAGNESIUM HYDROXIDE SUSP 30 ML UDCUP PO PRN (04:22)
[2018-10-08] MEDS ORDERED: ONDANSETRON HCL INJ/PF 4 MG/2 ML SDV IV PRN (04:22)
[2018-10-08] MEDS ORDERED: ONDANSETRON 4 MG TAB.RAPDIS PO PRN (04:22)
[2018-10-08] MEDS ORDERED: MAG HYDROX/AL HYDROX/SIMETH SUSP 30 ML UDCUP PO PRN (04:22)
[2018-10-08] MEDS ORDERED: ACETAMINOPHEN 650 MG SUPP.RECT PR PRN (04:29)
[2018-10-08] MEDS ORDERED: NALBUPHINE HCL INJ 10 MG/1 ML AMPULE IV PRN (04:30)
[2018-10-08] MEDS ORDERED: NICOTINE 21 MG/24 HR PATCH.TD24 TD PRN (04:30)
[2018-10-08] MEDS: HEPARIN SOD (PORCINE) 5,000 UNIT/ML 1 ML SYRINGE SUBCUT SCH ×2 (05:21→15:08)
[2018-10-08] MEDS: METHYLPREDNISOLONE INJ 40 MG/1 ML SDV IV SCH ×3 (05:24→19:59)
[2018-10-08] MEDS: ALBUTEROL SULFATE 0.083% NEB 2.5 MG/3 ML AMPUL NEB PRN ×2 (06:20→11:21)
[2018-10-08] MEDS ORDERED: CHLORPROMAZINE HCL INJ 25 MG/1 ML AMPULE IV ONE (06:38)
--- NOTE | 2018-10-08 07:47 | PDOC H&P ---
History of Present Illness Admission Date/PCP: 10/08/18 04:17 Patient complains of: Dyspnea History of Present Illness: ISHA REDMOND is a 43 year old female who presented to the emergency room with a 4-day history of progressively worsening dyspnea. She admits that she began having mild to moderate dyspnea 3-4 days prior to admission which is progressively worsened over that timeframe to now become severe dyspnea. She admits the accompanying symptoms of wheezing, a nonproductive cough and occasional episodes of posttussive emesis. She has noted no improvement in her symptoms when she utilizes her nebulizers and inhalers at home. She further admits that she has had similar episodes in the past on frequent occasions resulting in hospitalization for her asthma/COPD. She has not identified any aggravating or ameliorating factors for her acute dyspnea but does admit that she smokes cigarettes. In the emergency room she was found to have acute hypoxi a which was responsive to supplemental oxygen however the patient continued to have significant work of breathing and eventually required placement of BiPAP. Because of the rib BiPAP requirement for continued adequate respiration patient will be admitted to the hospital for further evaluation and treatment. Past Medical History Cardiac Medical History: Denies: Coronary Artery Disease, DVT, Hyperlipidema, Hypertension, Pulmonary Embolism Pulmonary Medical History: Reports: Asthma, Chronic Obstructive Pulmonary Disease (COPD), Respiratory Failure Denies: Intubation EENT Medical History: Reports: None Neurological Medical History: Denies: Hemorrhagic CVA, Ischemic CVA, Seizures Endocrine Medical History: Reports: Obesity Denies: Diabetes Mellitus Type 1, Diabetes Mellitus Type 2, Hyperthyroidism, Hypothyroidism Renal/ Medical History: Denies: Chronic Kidney Disease, Nephrolithiasis Malignancy Medical History: Reports: None GI Medical History: Reports: Gastroesophageal Reflux Disease Denies: Cirrhosis, Hepatitis Musculoskeltal Medical History: Denies: Arthritis, Gout Skin Medical History: Denies: Eczema, Psoriasis Psychiatric Medical History: Reports: Depression, Post Traumatic Stress Disorder, Tobacco Dependency Denies: Alcohol Dependency, Substance Abuse Traumatic Medical History: Reports: None Hematology: Denies: Anemia, Bleeding Tendencies Past Surgical History Past Surgical History: Reports: Adenoidectomy, Tonsillectomy, Tubal Ligation Social History Information Source: Patient Lives with: Family Smoking Status: Current Every Day Smoker Frequency of Alcohol Use: None Hx Recreational Drug Use: No Drugs: None Hx Prescription Drug Abuse: No - Advance Directive Resuscitation Status: Full Code Surrogate healthcare decision maker:: Her son Family History Family History: Arthritis, CAD, CVA, DM, Hyperlipidemia, Hypertension, Malignancy, Thyroid Disfunction Parental Family History Reviewed: Yes Children Family History Reviewed: No Sibling(s) Family History Reviewed.: Yes Medication/Allergy Home Medications: Albuterol Sulfate [Proair HFA Inhalation Aerosol 8.5 gm MDI] 2 puff IH Q4HP PRN 07/22/18 Fluticasone Propionate [Flonase Nasal Kennard 50 Mcg/Kennard 16 gm] 2 sprays NASL DAILY 07/22/18 Fluticasone Propionate [Flovent Hfa 110 Mcg Inhalation Aerosol 12 gm] 2 puff IH Q12 07/22/18 Montelukast Sodium [Singulair 10 mg Tablet] 10 mg PO QHS 07/22/18 Naproxen [Naprosyn 375 Mg Tablet] 375 mg PO Q6H #12 tablet 07/23/18 Prednisone [Deltasone 20 mg Tablet] 20 mg PO BID #10 tablet 07/23/18 Sertraline HCl [Zoloft] 50 mg PO QHS 07/23/18 Tiotropium [place] [Spiriva Handihaler 5 Cap/Kit (18 Mcg/Cap)] 1 cap IH DAILY #5 capsule 07/23/18 Allergies/Adverse Reactions: codeine Allergy (Verified 08/16/17 15:03) latex Allergy (Verified 08/16/17 15:03) RASH, SWOLLEN TONGUE Review of Systems Constitutional: ABSENT: chills, fever(s) Eyes: ABSENT: visual disturbances, other - Ocular pain Ears: ABSENT: hearing changes, other - Ear pain Nose, Mouth, and Throat: ABSENT: mouth pain, sore throat Cardiovascular: PRESENT: dyspnea on exertion, orthropnea. ABSENT: chest pain, edema, palpitations Respiratory: PRESENT: cough, dyspnea. ABSENT: hemoptysis, sputum Gastrointestinal: PRESENT: vomiting - Posttussive emesis. ABSENT: abdominal melinda n, constipation, diarrhea, nausea Genitourinary: ABSENT: dysuria, hematuria Musculoskeletal: ABSENT: deformity, joint swelling Integumentary: ABSENT: pruritus, rash Neurological: ABSENT: confusion, convulsions, memory loss, tremor(s) Psychiatric: ABSENT: anxiety, depression Endocrine: ABSENT: cold intolerance, heat intolerance Hematologic/Lymphatic: ABSENT: easy bleeding, easy bruising - [id number] Physical Exam Vital Signs: Temp Pulse Resp BP Pulse Ox 98.1 F 98 23 H 141/92 H 93 10/07/18 23:53 10/07/18 23:53 10/08/18 04:15 10/08/18 04:11 10/08/18 04:15 Intake & Output 10/06/18 10/07/18 10/08/18 23:59 23:59 23:59 Intake Total 45 Balance 45 Weight 103.2 kg General appearance: PRESENT: no acute distress, cooperative, obese, other - On BiPAP Head exam: PRESENT: atraumatic, normocephalic Eye exam: PRESENT: conjunctiva pink, EOMI. ABSENT: scleral icterus Ear exam: PRESENT: normal external ear exam. ABSENT: bleeding, drainage Mouth exam: PRESENT: dry mucosa, neck supple Neck exam: ABSENT: thyromegaly, tracheal deviation Respiratory exam: PRESENT: accessory muscle use - Moderate accessory muscle use noted, decreased breath sounds - Poor to fair air motion noted in all hunt., prolonged expiratory phas - Prolonged expiratory phase in all hunt, symmetrical, wheezes - Expiratory wheezes in all hunt, other - On BiPAP Cardiovascular exam: PRESENT: RRR. ABSENT: clicks, gallop, rubs Pulses: PRESENT: normal radial pulses, normal dorsalis pedis pul GI/Abdominal exam: PRESENT: normal bowel sounds, soft. ABSENT: tenderness Rectal exam: PRESENT: deferred Extremities exam: ABSENT: joint swelling, pedal edema Musculoskeletal exam: PRESENT: full ROM, normal inspection Neurological exam: PRESENT: alert, oriented to person, oriented to place, oriented to time, oriented to situation, CN II-XII grossly intact. ABSENT: motor sensory deficit Psychiatric exam: PRESENT: appropriate affect, normal mood Skin exam: PRESENT: dry, intact, warm. ABSENT: jaundice, rash, urticaria Results Laboratory Results: 10/08/18 03:33 10/08/18 03:33 10/08/18 10/08/18 03:33 03:33 WBC 11.7 H RBC 5.05 Hgb 14.5 Hct 42.7 MCV 84 MCH 28.8 MCHC 34.1 RDW 15.0 H Plt Count 333 Seg Neutrophils % 88.8 H Lymphocytes % 7.3 L Monocytes % 1.6 L Eosinophils % 1.5 Basophils % 0.8 Absolute Neutrophils 10.4 H Absolute Lymphocytes 0.9 Absolute Monocytes 0.2 Absolute Eosinophils 0.2 Absolute Basophils 0.1 Sodium 140.3 Potassium 4.3 Chloride 110 H Carbon Dioxide 24 Anion Gap 6 BUN 12 Creatinine 0.67 Est GFR ( Amer) > 60 Est GFR (Non-Af Amer) > 60 Glucose 111 H Calcium 9.2 Impressions: Chest X-Ray 10/08/18 03:03 IMPRESSION: No acute cardiopulmonary disease. copyright 2010 [employer]- All Rights Reserved Assessment & Plan - Diagnosis (1) Acute hypoxemic respiratory failure Is this a current diagnosis for this admission?: Yes Plan: Patient will be treated with supplemental oxygen and BiPAP to maintain adequate oxygenation and respiration. (2) Acute exacerbation of COPD with asthma Is this a current diagnosis for this admission?: Yes Plan: Patient will be treated with nebulizer therapies utilizing Xopenex, Atrovent, Pulmicort and albuterol. She will receive IV Solu-Medrol. Doxycycline will be used for antibiotic coverage. (3) Tobacco use disorder, severe, dependence Is this a current diagnosis for this admission?: Yes Plan: Smoking cessation is advised. Smoking cessation counseling is given. Nicotine replacement patch is available for patients use (4) Obesity (BMI 30.0-34.9) Is this a current diagnosis for this admission?: Yes Plan: Nutritional consult will be ordered to instruct the patient in diet for weight loss as well as lifestyle changes that would help to improve her overall health and quality of life. - Time Time Spent: 30 to 50 Minutes Critical Time spent with patient: Less than 15 minutes Smoking Cessation Education: 3 to 10 minutes Medications reviewed and adjusted accordingly: Yes Anticipated discharge: Home - Inpatient Certification Based on my medical assessment, after consideration of the patient's comorbidities, presenting symptoms, or acuity I expect that the services needed warrant INPATIENT care.: Yes I certify that my determination is in accordance with my understanding of Medicare's requirements for reasonable and necessary INPATIENT services [42 CFR 412.3e].: Yes Medical Necessity: Significant Comorbidiites Make Outpatient Treatment Too Risky, Need Close Monitoring Due to Risk of Patient Decompensation, Need For Continuous Telemetry Monitoring, Need for Nebulizer Therapy and Monitoring of Response, Risk of Complication if Not Cared For in Hospital
[2018-10-08] MEDS ORDERED: CHLORPROMAZINE HCL INJ 25 MG/1 ML AMPULE IV PRN (08:02)
[2018-10-08] MEDS: BUDESONIDE NEB 0.5 MG/2 ML AMPUL NEB SCH ×2 (08:17→19:32)
[2018-10-08] MEDS: LEVALBUTEROL HCL NEB 1.25 MG/3 ML AMPUL NEB SCH ×3 (08:17→23:59)
[2018-10-08] MEDS: IPRATROPIUM BROMIDE 0.02% NEB 0.5 MG/2.5 ML AMPUL NEB SCH ×3 (08:17→23:59)
[2018-10-08] MEDS: DOXYCYCLINE HYCLATE 100 MG TABLET PO SCH ×2 (09:18→22:29)
[2018-10-08] MEDS: FAMOTIDINE 20 MG TABLET PO SCH (09:18)
[2018-10-08] MEDS: DOCUSATE SODIUM 100 MG CAPSULE PO SCH ×2 (09:18→22:29)
[2018-10-08] MEDS: TIOTROPIUM BROMIDE DPI 5 CAP/KIT (18 MCG/CAP) IH SCH (09:19)
[2018-10-08] MEDS: FLUTICASONE NASAL SPRAY 50 MCG/SPRY 120 SPRAY/16 GM NASL SCH (09:20)
[2018-10-08] MEDS: ACETAMINOPHEN 325 MG TABLET PO PRN (15:09)
[2018-10-09] MEDS: HEPARIN SOD (PORCINE) 5,000 UNIT/ML 1 ML SYRINGE SUBCUT SCH ×4 (00:11→21:31)
[2018-10-09] MEDS: MONTELUKAST SODIUM 10 MG TABLET PO SCH ×2 (00:11→21:48)
[2018-10-09] MEDS: SERTRALINE HCL 50 MG TABLET PO SCH ×2 (00:11→21:49)
[2018-10-09] MEDS: FAMOTIDINE 20 MG TABLET PO SCH ×3 (00:11→21:47)
[2018-10-09] MEDS: ACETAMINOPHEN 325 MG TABLET PO PRN ×2 (04:21→08:29)
[2018-10-09 05:45] LABS: ABSOLUTE BASOPHILS # (AUTO) 0.1 10^3/uL (0.0-0.2); ABSOLUTE LYMPHOCYTES (AUTO) 1.8 10^3/uL (0.5-4.7); ABSOLUTE MONOCYTES (AUTO) 0.7 10^3/uL (0.1-1.4); ABSOLUTE NEUT (AUTO) 9.5 10^3/uL (1.7-8.2); BASOPHILS % (AUTO) 0.5 % (0-2); EOSINOPHILS % (AUTO) 0.1 % (0-6); HEMATOCRIT 37.9 % (36.0-47.0); HEMOGLOBIN 12.8 g/dL (12.0-15.5); LYMPHOCYTES % (AUTO) 14.7 % (13-45); MEAN CORPUSCULAR HEMOGLOBIN 28.5 pg (27.0-33.4); MEAN CORPUSCULAR HGB CONC 33.9 g/dL (32.0-36.0); MEAN CORPUSCULAR VOLUME 84 fl (80-97); MONOCYTES % (AUTO) 5.9 % (3-13); PLATELET COUNT 286 10^3/uL (150-450); RED BLOOD COUNT 4.51 10^6/uL (3.72-5.28); RED CELL DISTRIBUTION WIDTH 14.9 % (11.5-14.0); SEGMENTED NEUTROPHILS % (AUTO) 78.8 % (42-78); TOTAL CELLS COUNTED % (AUTO) 100 %
[2018-10-09 06:15] LABS: ANION GAP 6 (5-19); BLOOD UREA NITROGEN 11 mg/dL (7-20); CALCIUM 9.3 mg/dL (8.4-10.2); CARBON DIOXIDE 24 mmol/L (22-30); CHLORIDE 108 mmol/L (98-107); GLUCOSE 133 mg/dL (75-110); POTASSIUM 4.1 mmol/L (3.6-5.0); SODIUM 138.1 mmol/L (137-145)
[2018-10-09 06:56] LABS: ARTERIAL BLOOD BASE EXCESS -1.9 mmol/L; ARTERIAL BLOOD H2CO3 1.04 mmol/L (1.05-1.35); ARTERIAL BLOOD HCO3 21.9 mmol/L (20-24); ARTERIAL BLOOD O2 SATURATION 93.1 % (94-98); ARTERIAL BLOOD PCO2 34.5 mmHg (35-45); ARTERIAL BLOOD PH 7.42 (7.35-7.45); ARTERIAL BLOOD PO2 64.3 mmHg (80-100)
[2018-10-09 07:10] LABS: ARTERIAL BLOOD FIO2 21%
[2018-10-09 07:38] LABS: FREE T3 2.89 pg/mL (2.77-5.27); FREE T4 (FREE THYROXINE) 1.13 ng/dL (0.78-2.19)
[2018-10-09 07:51] LABS: THYROID STIMULATING HORMONE 0.96 uIU/mL (0.47-4.68)
[2018-10-09] MEDS: LEVALBUTEROL HCL NEB 1.25 MG/3 ML AMPUL NEB SCH ×2 (08:11→16:02)
[2018-10-09] MEDS: IPRATROPIUM BROMIDE 0.02% NEB 0.5 MG/2.5 ML AMPUL NEB SCH ×2 (08:11→16:02)
[2018-10-09] MEDS: BUDESONIDE NEB 0.5 MG/2 ML AMPUL NEB SCH ×2 (08:11→20:13)
[2018-10-09] MEDS: TIOTROPIUM BROMIDE DPI 5 CAP/KIT (18 MCG/CAP) IH SCH (10:59)
[2018-10-09] MEDS: BUTALB/ACETAMINOPHEN/CAFFEINE 1 TAB EACH PO PRN ×2 (11:00→19:03)
[2018-10-09] MEDS: GUAIFENESIN 600 MG TABLET.SA PO SCH ×2 (11:01→21:48)
[2018-10-09] MEDS: DOCUSATE SODIUM 100 MG CAPSULE PO SCH ×2 (11:02→19:03)
[2018-10-09] MEDS: FLUTICASONE NASAL SPRAY 50 MCG/SPRY 120 SPRAY/16 GM NASL SCH (11:02)
[2018-10-09] MEDS ORDERED: HYDRALAZINE HCL INJ/PF 20 MG/1 ML SDV IV PRN (12:33)
[2018-10-09] MEDS: DOXYCYCLINE HYCLATE 100 MG TABLET PO SCH ×2 (12:51→21:50)
[2018-10-09] MEDS: IBUPROFEN 600 MG TABLET PO PRN ×2 (12:59→21:48)
--- NOTE | 2018-10-09 13:43 | PDOC PROGRESS REPORT ---
Subjective Progress Note for:: 10/09/18 Subjective:: 10/09/2018 49-year-old female came to the emergency room with shortness of breath for the last 3-4 days. She is also complaining of wheezing and a nonproductive cough. She tried to use the nebulizers at home on inhalers at home without much help. She is given the history of frequent episodes resulting in hospitalization for her asthma/COPD. No acute events in the last 24 hours. Patient is afebrile. Still complaining of wheezing. Requesting Fioricet for headaches and Motrin for pains. Reason For Visit: ACUTE HYPOXIC RESPIRATORY FAILURE Physical Exam Vital Signs: Temp Pulse Resp BP Pulse Ox 97.5 F 97 20 145/108 H 97 10/09/18 12:00 10/09/18 12:00 10/09/18 12:00 10/09/18 12:00 10/09/18 12:00 Intake & Output 10/08/18 10/09/18 10/10/18 06:59 06:59 06:59 Intake Total 45 250 Balance 45 250 Weight 103.2 kg 91.2 kg General appearance: PRESENT: no acute distress Head exam: PRESENT: atraumatic Eye exam: PRESENT: PERRLA Mouth exam: PRESENT: dry mucosa Neck exam: ABSENT: carotid bruit, JVD, lymphadenopathy, thyromegaly Respiratory exam: PRESENT: decreased breath sounds, wheezes Cardiovascular exam: PRESENT: tachycardia GI/Abdominal exam: PRESENT: normal bowel sounds, soft. ABSENT: distended, guarding, mass, organolmegaly, rebound, tenderness Extremities exam: PRESENT: full ROM. ABSENT: calf tenderness, clubbing, pedal edema Neurological exam: PRESENT: alert, awake, oriented to person, oriented to place, oriented to time, oriented to situation, CN II-XII grossly intact. ABSENT: motor sensory deficit Psychiatric exam: PRESENT: appropriate affect, normal mood. ABSENT: homicidal ideation, suicidal ideation Results Laboratory Results: 10/09/18 05:07 10/09/18 05:07 10/09/18 10/09/18 10/09/18 05:07 05:07 05:07 WBC 12.0 H RBC 4.51 Hgb 12.8 Hct 37.9 MCV 84 MCH 28.5 MCHC 33.9 RDW 14.9 H Plt Count 286 Seg Neutrophils % 78.8 H Lymphocytes % 14.7 Monocytes % 5.9 Eosinophils % 0.1 Basophils % 0.5 Absolute Neutrophils 9.5 H Absolute Lymphocytes 1.8 Absolute Monocytes 0.7 Absolute Eosinophils 0.0 Absolute Basophils 0.1 Carbonic Acid HCO3/H2CO3 Ratio ABG pH ABG pCO2 ABG pO2 ABG HCO3 ABG O2 Saturation ABG Base Excess FiO2 Sodium 138.1 Potassium 4.1 Chloride 108 H Carbon Dioxide 24 Anion Gap 6 BUN 11 Creatinine 0.62 Est GFR ( Amer) > 60 Est GFR (Non-Af Amer) > 60 Glucose 133 H Calcium 9.3 Magnesium 2.1 TSH 0.96 Free T4 1.13 Free T3 pg/mL 2.89 10/09/18 06:42 WBC RBC Hgb Hct MCV MCH MCHC RDW Plt Count Seg Neutrophils % Lymphocytes % Monocytes % Eosinophils % Basophils % Absolute Neutrophils Absolute Lymphocytes Absolute Monocytes Absolute Eosinophils Absolute Basophils Carbonic Acid 1.04 L HCO3/H2CO3 Ratio 21:1 ABG pH 7.42 ABG pCO2 34.5 L ABG pO2 64.3 L ABG HCO3 21.9 ABG O2 Saturation 93.1 L ABG Base Excess -1.9 FiO2 21% Sodium Potassium Chloride Carbon Dioxide Anion Gap BUN Creatinine Est GFR ( Amer) Est GFR (Non-Af Amer) Glucose Calcium Magnesium TSH Free T4 Free T3 pg/mL Impressions: Chest X-Ray 10/08/18 03:03 IMPRESSION: No acute cardiopulmonary disease. copyright 2010 [employer]- All Rights Reserved Assessment & Plan - Diagnosis (1) Acute exacerbation of COPD with asthma Is this a current diagnosis for this admission?: Yes Plan: Patient will be treated with nebulizer therapies utilizing Xopenex, Atrovent, Pulmicort and albuterol. She will receive IV Solu-Medrol. Doxycycline will be used for antibiotic coverage. 10/09/2018 patient is admitted with exacerbation last acute exacerbation of COPD with asthma still has a bilateral wheezing is present on examination presently on Xopenex, Atrovent, Pulmicort and albuterol nebulizations. She was started on Solu-Medrol 40 mg IV twice a day. She is receiving prophylactic antibiotic doxycycline. plan is to continue the present management. (2) Acute hypoxemic respiratory failure Is this a current diagnosis for this admission?: Yes Plan: 10/09/2018 patient with came to the emergency room with complaints of shortness of breath. found to be in Hypoxic respiratory failure. This probably secondary to underlying COPD and asthma exacerbation. Plan is to continue the IV steroids, scheduled Xopenex and ipratropium nebulizations. (3) Tobacco abuse Is this a current diagnosis for this admission?: Yes Plan: 10/09/2018-patient is a chronic smoker she is receiving nicotine patch daily. Smoking counseling was provided with a 10 minutes. Uncle advised to quit smoking. - Time Time Spent with patient: 15-24 minutes Smoking Cessation Education: over 10 minutes Medications reviewed and adjusted accordingly: Yes Anticipated discharge: Home
[2018-10-09] MEDS: METHYLPREDNISOLONE INJ 40 MG/1 ML SDV IV SCH (21:47)
[2018-10-10] MEDS: LEVALBUTEROL HCL NEB 1.25 MG/3 ML AMPUL NEB SCH ×3 (00:11→16:18)
[2018-10-10] MEDS: IPRATROPIUM BROMIDE 0.02% NEB 0.5 MG/2.5 ML AMPUL NEB SCH ×3 (00:11→16:18)
[2018-10-10] MEDS: HEPARIN SOD (PORCINE) 5,000 UNIT/ML 1 ML SYRINGE SUBCUT SCH ×3 (05:08→21:37)
[2018-10-10 06:06] LABS: ABSOLUTE BASOPHILS # (AUTO) 0.1 10^3/uL (0.0-0.2); ABSOLUTE LYMPHOCYTES (AUTO) 1.5 10^3/uL (0.5-4.7); ABSOLUTE MONOCYTES (AUTO) 0.2 10^3/uL (0.1-1.4); ABSOLUTE NEUT (AUTO) 8.7 10^3/uL (1.7-8.2); BASOPHILS % (AUTO) 0.6 % (0-2); EOSINOPHILS % (AUTO) 0.1 % (0-6); HEMOGLOBIN 13.8 g/dL (12.0-15.5); LYMPHOCYTES % (AUTO) 14.5 % (13-45); MEAN CORPUSCULAR HEMOGLOBIN 28.9 pg (27.0-33.4); MEAN CORPUSCULAR HGB CONC 34.4 g/dL (32.0-36.0); MEAN CORPUSCULAR VOLUME 84 fl (80-97); MONOCYTES % (AUTO) 1.5 % (3-13); PLATELET COUNT 309 10^3/uL (150-450); RED BLOOD COUNT 4.76 10^6/uL (3.72-5.28); SEGMENTED NEUTROPHILS % (AUTO) 83.3 % (42-78); TOTAL CELLS COUNTED % (AUTO) 100 %; WHITE BLOOD COUNT 10.5 10^3/uL (4.0-10.5)
[2018-10-10 06:25] LABS: ANION GAP 9 (5-19); BLOOD UREA NITROGEN 15 mg/dL (7-20); CALCIUM 9.3 mg/dL (8.4-10.2); CARBON DIOXIDE 21 mmol/L (22-30); CHLORIDE 109 mmol/L (98-107); GLUCOSE 103 mg/dL (75-110); POTASSIUM 4.9 mmol/L (3.6-5.0)
[2018-10-10] MEDS: ACETAMINOPHEN 325 MG TABLET PO PRN (06:30)
[2018-10-10] MEDS: IBUPROFEN 600 MG TABLET PO PRN (08:25)
[2018-10-10] MEDS: BUDESONIDE NEB 0.5 MG/2 ML AMPUL NEB SCH ×2 (08:44→23:15)
[2018-10-10] MEDS: METHYLPREDNISOLONE INJ 40 MG/1 ML SDV IV SCH (09:13)
[2018-10-10] MEDS: FLUTICASONE NASAL SPRAY 50 MCG/SPRY 120 SPRAY/16 GM NASL SCH (09:15)
[2018-10-10] MEDS: FAMOTIDINE 20 MG TABLET PO SCH ×2 (09:16→21:44)
[2018-10-10] MEDS: TIOTROPIUM BROMIDE DPI 5 CAP/KIT (18 MCG/CAP) IH SCH (09:16)
[2018-10-10] MEDS: GUAIFENESIN 600 MG TABLET.SA PO SCH ×2 (09:16→21:44)
[2018-10-10] MEDS: DOXYCYCLINE HYCLATE 100 MG TABLET PO SCH ×2 (09:16→18:07)
[2018-10-10] MEDS: DOCUSATE SODIUM 100 MG CAPSULE PO SCH ×2 (09:16→18:04)
--- NOTE | 2018-10-10 13:04 | PDOC PROGRESS REPORT ---
Subjective Progress Note for:: 10/10/18 Subjective:: 10/09/2018 49-year-old female came to the emergency room with shortness of breath for the last 3-4 days. She is also complaining of wheezing and a nonproductive cough. She tried to use the nebulizers at home on inhalers at home without much help. She is given the history of frequent episodes resulting in hospitalization for her asthma/COPD. No acute events in the last 24 hours. Patient is afebrile. Still complaining of wheezing. Requesting Fioricet for headaches and Motrin for pains. 10/10/[id number]-old female admitted for asthma/COPD exacerbation. She is still wheezing. She does not want IV Solu-Medrol because it gives her migraine headaches. She wants to be on prednisone. No acute events in the last 24 hours. Patient is afebrile. she also requesting something for the sinuses like cetirizine. Reason For Visit: ACUTE HYPOXIC RESPIRATORY FAILURE Physical Exam Vital Signs: Temp Pulse Resp BP Pulse Ox 98.5 F 70 16 144/88 H 99 10/10/18 11:37 10/10/18 11:37 10/10/18 11:37 10/10/18 11:37 10/10/18 11:37 Intake & Output 10/09/18 10/10/18 10/11/18 06:59 06:59 06:59 Intake Total 250 798 Balance 250 798 Weight 91.2 kg 95.9 kg General appearance: PRESENT: no acute distress Head exam: PRESENT: atraumatic Eye exam: PRESENT: PERRLA Mouth exam: PRESENT: dry mucosa Neck exam: ABSENT: carotid bruit, JVD, lymphadenopathy, thyromegaly Respiratory exam: PRESENT: decreased breath sounds, wheezes Cardiovascular exam: PRESENT: tachycardia GI/Abdominal exam: PRESENT: normal bowel sounds, soft. ABSENT: distended, g uarding, mass, organolmegaly, rebound, tenderness Extremities exam: PRESENT: full ROM. ABSENT: calf tenderness, clubbing, pedal edema Neurological exam: PRESENT: alert, awake, oriented to person, oriented to place, oriented to time, oriented to situation, CN II-XII grossly intact. ABSENT: motor sensory deficit Psychiatric exam: PRESENT: appropriate affect, normal mood. ABSENT: homicidal ideation, suicidal ideation Results Laboratory Results: 10/10/18 05:32 10/10/18 05:32 10/10/18 10/10/18 05:32 05:32 WBC 10.5 RBC 4.76 Hgb 13.8 Hct 40.0 MCV 84 MCH 28.9 MCHC 34.4 RDW 15.0 H Plt Count 309 Seg Neutrophils % 83.3 H Lymphocytes % 14.5 Monocytes % 1.5 L Eosinophils % 0.1 Basophils % 0.6 Absolute Neutrophils 8.7 H Absolute Lymphocytes 1.5 Absolute Monocytes 0.2 Absolute Eosinophils 0.0 Absolute Basophils 0.1 Sodium 139.0 Potassium 4.9 Chloride 109 H Carbon Dioxide 21 L Anion Gap 9 BUN 15 Creatinine 0.69 Est GFR ( Amer) > 60 Est GFR (Non-Af Amer) > 60 Glucose 103 Calcium 9.3 Magnesium 1.9 Impressions: Chest X-Ray 10/08/18 03:03 IMPRESSION: No acute cardiopulmonary disease. copyright 2010 [employer]- All Rights Reserved Assessment & Plan - Diagnosis (1) Acute exacerbation of COPD with asthma Is this a current diagnosis for this admission?: Yes Plan: Patient will be treated with nebulizer therapies utilizing Xopenex, Atrovent, Pulmicort and albuterol. She will receive IV Solu-Medrol. Doxycycline will be used for antibiotic coverage. 10/09/2018 patient is admitted with exacerbation last acute exacerbation of COPD with asthma still has a bilateral wheezing is present on examination presently on Xopenex, Atrovent, Pulmicort and albuterol nebulizations. She was started on Solu-Medrol 40 mg IV twice a day. She is receiving prophylactic antibiotic doxycycline. plan is to continue the present management. 10/10/2018-this 43-year-old female admitted with acute exacerbation of asthma/COPD. Presently she is on a Xopenex nebulization, Atrovent, Pulmicort and albuterol nebulizations. Started on IV Solu-Medrol yesterday but patient does not want to use it because she gets migraine headaches with Solu-Medrol. So I discontinued IV Solu-Medrol today started on prednisone 20 mg p.o. twice daily. Plan we will continue the present management. (2) Acute hypoxemic respiratory failure Is this a current diagnosis for this admission?: Yes Plan: 10/09/2018 patient with came to the emergency room with complaints of shortness of breath. found to be in Hypoxic respiratory failure. This probably secondary to underlying COPD and asthma exacerbation. Plan is to continue the IV steroids, scheduled Xopenex and ipratropium nebulizations. 10/10/2018-patient came in with acute on chronic respiratory failure with hypoxia. Pulse ox is 97% on room air. Still wheezing bilaterally. On examination chest bilateral entry was decreased. Plan is to continue p.o. prednisone, Xopenex and ipratropium nebulizations. (3) Tobacco abuse Is this a current diagnosis for this admission?: Yes Plan: 10/09/2018-patient is a chronic smoker she is receiving nicotine patch daily. Smoking counseling was provided with a 10 minutes. advised to quit smoking. 10/10/2018 patient is a chronic smoker she is getting nicotine patch daily. Strongly advised to quit smoking. - Time Time Spent with patient: 15-24 minutes Medications reviewed and adjusted accordingly: Yes Anticipated discharge: Home
[2018-10-10] MEDS: PREDNISONE 20 MG TABLET PO SCH (18:04)
[2018-10-10] MEDS ORDERED: CETIRIZINE 10 MG TABLET PO ONE (18:30)
[2018-10-10] MEDS: MONTELUKAST SODIUM 10 MG TABLET PO SCH (21:44)
[2018-10-10] MEDS: BUTALB/ACETAMINOPHEN/CAFFEINE 1 TAB EACH PO PRN (21:44)
[2018-10-10] MEDS: SERTRALINE HCL 50 MG TABLET PO SCH (21:45)
[2018-10-11] MEDS: IPRATROPIUM BROMIDE 0.02% NEB 0.5 MG/2.5 ML AMPUL NEB SCH ×2 (00:57→08:47)
[2018-10-11] MEDS: LEVALBUTEROL HCL NEB 1.25 MG/3 ML AMPUL NEB SCH ×2 (00:57→08:47)
[2018-10-11] MEDS: IBUPROFEN 600 MG TABLET PO PRN ×2 (04:32→14:22)
[2018-10-11] MEDS: HEPARIN SOD (PORCINE) 5,000 UNIT/ML 1 ML SYRINGE SUBCUT SCH ×2 (05:52→13:57)
[2018-10-11 06:46] LABS: ABSOLUTE BASOPHILS # (AUTO) 0.1 10^3/uL (0.0-0.2); ABSOLUTE LYMPHOCYTES (AUTO) 2.4 10^3/uL (0.5-4.7); ABSOLUTE MONOCYTES (AUTO) 0.7 10^3/uL (0.1-1.4); ABSOLUTE NEUT (AUTO) 8.8 10^3/uL (1.7-8.2); BASOPHILS % (AUTO) 1.2 % (0-2); EOSINOPHILS % (AUTO) 0.2 % (0-6); HEMATOCRIT 40.6 % (36.0-47.0); HEMOGLOBIN 13.8 g/dL (12.0-15.5); LYMPHOCYTES % (AUTO) 20.3 % (13-45); MEAN CORPUSCULAR HEMOGLOBIN 28.5 pg (27.0-33.4); MEAN CORPUSCULAR HGB CONC 33.9 g/dL (32.0-36.0); MEAN CORPUSCULAR VOLUME 84 fl (80-97); MONOCYTES % (AUTO) 5.4 % (3-13); PLATELET COUNT 318 10^3/uL (150-450); RED BLOOD COUNT 4.83 10^6/uL (3.72-5.28); RED CELL DISTRIBUTION WIDTH 14.8 % (11.5-14.0); SEGMENTED NEUTROPHILS % (AUTO) 72.9 % (42-78); TOTAL CELLS COUNTED % (AUTO) 100 %; WHITE BLOOD COUNT 12.1 10^3/uL (4.0-10.5)
[2018-10-11 07:08] LABS: ALANINE AMINOTRANSFERASE 15 U/L (9-52); ALKALINE PHOSPHATASE 110 U/L (38-126); ANION GAP 10 (5-19); ASPARTATE AMINO TRANSFERASE 14 U/L (14-36); BILIRUBIN,DIRECT 0.3 mg/dL (0.0-0.4); BILIRUBIN,TOTAL 0.5 mg/dL (0.2-1.3); BLOOD UREA NITROGEN 16 mg/dL (7-20); CALCIUM 9.5 mg/dL (8.4-10.2); CARBON DIOXIDE 21 mmol/L (22-30); CHLORIDE 109 mmol/L (98-107); GLUCOSE 94 mg/dL (75-110); POTASSIUM 4.7 mmol/L (3.6-5.0); SODIUM 139.9 mmol/L (137-145); TOTAL PROTEIN 6.7 g/dL (6.3-8.2)
[2018-10-11] MEDS: BUDESONIDE NEB 0.5 MG/2 ML AMPUL NEB SCH (08:47)
[2018-10-11] MEDS: TIOTROPIUM BROMIDE DPI 5 CAP/KIT (18 MCG/CAP) IH SCH (09:34)
[2018-10-11] MEDS: FAMOTIDINE 20 MG TABLET PO SCH (09:35)
[2018-10-11] MEDS: PREDNISONE 20 MG TABLET PO SCH (09:35)
[2018-10-11] MEDS: GUAIFENESIN 600 MG TABLET.SA PO SCH (09:35)
[2018-10-11] MEDS: DOCUSATE SODIUM 100 MG CAPSULE PO SCH (09:36)
[2018-10-11] MEDS: FLUTICASONE NASAL SPRAY 50 MCG/SPRY 120 SPRAY/16 GM NASL SCH (09:36)
[2018-10-11] MEDS: DOXYCYCLINE HYCLATE 100 MG TABLET PO SCH (09:36)
[2018-10-11] MEDS ORDERED: CETIRIZINE 10 MG TABLET PO SCH (10:00)
--- NOTE | 2018-10-11 15:07 | PDOC PROGRESS REPORT ---
Subjective Progress Note for:: 10/11/18 Subjective:: 10/09/2018 49-year-old female came to the emergency room with shortness of breath for the last 3-4 days. She is also complaining of wheezing and a nonproductive cough. She tried to use the nebulizers at home on inhalers at home without much help. She is given the history of frequent episodes resulting in hospitalization for her asthma/COPD. No acute events in the last 24 hours. Patient is afebrile. Still complaining of wheezing. Requesting Fioricet for headaches and Motrin for pains. 10/10/[id number]-vczs-old female admitted for asthma/COPD exacerbation. She is still wheezing. She does not want IV Solu-Medrol because it gives her migraine headaches. She wants to be on prednisone. No acute events in the last 24 hours. Patient is afebrile. she also requesting something for the sinuses like cetirizine. 10/11/2018 this 43-year-old female admitted with acute exacerbation of asthma/COPD. Started on p.o. prednisone. No acute events in the last 24 h ours.pt Is afebrile. She is expressing the desire to go home. Alert and awake communicating very well. Not in distress. Reason For Visit: ACUTE HYPOXIC RESPIRATORY FAILURE Physical Exam Vital Signs: Temp Pulse Resp BP Pulse Ox 98.7 F 64 20 132/87 H 97 10/11/18 11:18 10/11/18 11:18 10/11/18 11:18 10/11/18 11:18 10/11/18 11:18 Intake & Output 10/10/18 10/11/18 10/12/18 06:59 06:59 06:59 Intake Total 798 1276 740 Balance 798 1276 740 Weight 95.9 kg 95.6 kg General appearance: PRESENT: no acute distress Head exam: PRESENT: atraumatic Eye exam: PRESENT: PERRLA Mouth exam: PRESENT: moist, tongue midline Neck exam: ABSENT: carotid bruit, JVD, lymphadenopathy, thyromegaly Respiratory exam: PRESENT: decreased breath sounds Cardiovascular exam: PRESENT: RRR. ABSENT: diastolic murmur, rubs, systolic murmur GI/Abdominal exam: PRESENT: normal bowel sounds, soft. ABSENT: distended, guarding, mass, organolmegaly, rebound, tenderness Extremities exam: PRESENT: full ROM. ABSENT: calf tenderness, clubbing, pedal edema Neurological exam: PRESENT: alert, awake, oriented to person, oriented to place, oriented to time, oriented to situation, CN II-XII grossly intact. ABSENT: motor sensory deficit Psychiatric exam: PRESENT: appropriate affect, normal mood. ABSENT: homicidal ideation, suicidal ideation Results Laboratory Results: 10/11/18 06:09 10/11/18 06:09 10/11/18 10/11/18 06:09 06:09 WBC 12.1 H RBC 4.83 Hgb 13.8 Hct 40.6 MCV 84 MCH 28.5 MCHC 33.9 RDW 14.8 H Plt Count 318 Seg Neutrophils % 72.9 Lymphocytes % 20.3 Monocytes % 5.4 Eosinophils % 0.2 Basophils % 1.2 Absolute Neutrophils 8.8 H Absolute Lymphocytes 2.4 Absolute Monocytes 0.7 Absolute Eosinophils 0.0 Absolute Basophils 0.1 Sodium 139.9 Potassium 4.7 Chloride 109 H Carbon Dioxide 21 L Anion Gap 10 BUN 16 Creatinine 0.70 Est GFR ( Amer) > 60 Est GFR (Non-Af Amer) > 60 Glucose 94 Calcium 9.5 Magnesium 2.1 Total Bilirubin 0.5 AST 14 ALT 15 Alkaline Phosphatase 110 Total Protein 6.7 Albumin 4.0 Impressions: Chest X-Ray 10/08/18 03:03 IMPRESSION: No acute cardiopulmonary disease. copyright 2010 [email or web address] [facility] [employer]- All Rights Reserved Assessment & Plan - Diagnosis (1) Acute exacerbation of COPD with asthma Is this a current diagnosis for this admission?: Yes Plan: Patient will be treated with nebulizer therapies utilizing Xopenex, Atrovent, Pulmicort and albuterol. She will receive IV Solu-Medrol. Doxycycline will be used for antibiotic coverage. 10/09/2018 patient is admitted with exacerbation last acute exacerbation of COPD with asthma still has a bilateral wheezing is present on examination presently on Xopenex, Atrovent, Pulmicort and albuterol nebulizations. She was started on Solu-Medrol 40 mg IV twice a day. She is receiving prophylactic antibiotic doxycycline. plan is to continue the present management. 10/10/2018-this 43-year-old female admitted with acute exacerbation of asthma/COPD. Presently she is on a Xopenex nebulization, Atrovent, Pulmicort and albuterol nebulizations. Started on IV Solu-Medrol yesterday but patient does not want to use it because she gets migraine headaches with Solu-Medrol. So I discontinued IV Solu-Medrol today started on prednisone 20 mg p.o. twice daily. Plan we will continue the present management. 10/11/[id number]-zgcz-old female with history of asthma and COPD admitted with acute exacerbation of asthma. She was treated with Xopenex, Atrovent, Pulmicort, albuterol nebulizations. She was started on Solu-Medrol but she said it gives her migraine so it was changed to prednisone 20 mg p.o. twice daily. Today on examination chest bilateral entry decreased no wheezing present at all. Pulse ox is 96% on room air. Patient is expressing desire to go home on p.o. prednisone, albuterol inhaler, antibiotic therapy. I wrote a prescription for prednisone 10 mg p.o. twice daily for 10 days, albuterol inhaler, ciprofloxacin 500 mg p.o. daily for 1 week. (2) Acute hypoxemic respiratory failure Is this a current diagnosis for this admission?: Yes Plan: 10/09/2018 patient with came to the emergency room with complaints of shortness of breath. found to be in Hypoxic respiratory failure. This probably secondary to underlying COPD and asthma exacerbation. Plan is to continue the IV nusrat roids, scheduled Xopenex and ipratropium nebulizations. 10/10/2018-patient came in with acute on chronic respiratory failure with hypoxia. Pulse ox is 97% on room air. Still wheezing bilaterally. On examination chest bilateral entry was decreased. Plan is to continue p.o. prednisone, Xopenex and ipratropium nebulizations. 10/11/2018-patient is admitted with acute on chronic respiratory failure with hypoxia. Resolving. This acute on chronic respiratory failure with hypoxia probably secondary to underlying COPD/asthma. Pulse ox is 96% on room air. She is stable enough to go home today. (3) Tobacco abuse Is this a current diagnosis for this admission?: Yes Plan: 10/09/2018-patient is a chronic smoker she is receiving nicotine patch daily. Smoking counseling was provided with a 10 minutes. advised to quit smoking. 10/10/2018 patient is a chronic smoker she is getting nicotine patch daily. Strongly advised to quit smoking. 10/11/2018-patient is a chronic smoker she is on nicotine patch. Patient was strongly advised to quit smoking again smoking counseling was provided for more than 10 minutes. - Time Time Spent with patient: 15-24 minutes Smoking Cessation Education: over 10 minutes Medications reviewed and adjusted accordingly: Yes Anticipated discharge: Home
--- NOTE | 2018-10-11 15:13 | PDOC DISCHARGE SUMMARY ---
General - Admit/Disc Date/PCP Admission Date/Primary Care Provider: 10/08/18 04:17 Discharge Date: 10/11/18 - Discharge Diagnosis (1) Acute exacerbation of COPD with asthma Is this a current diagnosis for this admission?: Yes Summary: Patient will be treated with nebulizer therapies utilizing Xopenex, Atrovent, Pulmicort and albuterol. She will receive IV Solu-Medrol. Doxycycline will be used for antibiotic coverage. 10/09/2018 patient is admitted with exacerbation last acute exacerbation of COPD with asthma still has a bilateral wheezing is present on examination presently on Xopenex, Atrovent, Pulmicort and albuterol nebulizations. She was started on Solu-Medrol 40 mg IV twice a day. She is receiving prophylactic antibiotic doxycycline. plan is to continue the present management. 10/10/2018-this 43-year-old female admitted with acute exacerbation of asthma/COPD. Presently she is on a Xopenex nebulization, Atrovent, Pulmicort and albuterol nebulizations. Started on IV Solu-Medrol yesterday but patient does not want to use it because she gets migraine headaches with Solu-Medrol. So I discontinued IV Solu-Medrol today started on prednisone 20 mg p.o. twice daily. Plan we will continue the present management. 10/11/[id number]-smxf-old female with history of asthma and COPD admitted with acute exacerbation of asthma. She was treated with Xopenex, Atrovent, Pulmicort, albuterol nebulizations. She was started on Solu-Medrol but she said it gives her migraine so it was changed to prednisone 20 mg p.o. twice daily. Today on examination chest bilateral entry decreased no wheezing present at all. Pulse ox is 96% on room air. Patient is expressing desire to go home on p.o. prednisone, albuterol inhaler, antibiotic therapy. I wrote a prescription for prednisone 10 mg p.o. twice daily for 10 days, albuterol inhaler, ciprofloxacin 500 mg p.o. daily for 1 week. (2) Acute hypoxemic respiratory failure Is this a current diagnosis for this admission?: Yes Summary: 10/09/2018 patient with came to the emergency room with complaints of shortness of breath. found to be in Hypoxic respiratory failure. This probably secondary to underlying COPD and asthma exacerbation. Plan is to continue the IV steroids, scheduled Xopenex and ipratropium nebulizations. 10/10/2018-patient came in with acute on chronic respiratory failure with hypoxia. Pulse ox is 97% on room air. Still wheezing bilaterally. On examination chest bilateral entry was decreased. Plan is to continue p.o. predn isone, Xopenex and ipratropium nebulizations. 10/11/2018-patient is admitted with acute on chronic respiratory failure with hypoxia. Resolving. This acute on chronic respiratory failure with hypoxia probably secondary to underlying COPD/asthma. Pulse ox is 96% on room air. She is stable enough to go home today. (3) Tobacco abuse Is this a current diagnosis for this admission?: Yes Summary: 10/09/2018-patient is a chronic smoker she is receiving nicotine patch daily. Smoking counseling was provided with a 10 minutes. advised to quit smoking. 10/10/2018 patient is a chronic smoker she is getting nicotine patch daily. Strongly advised to quit smoking. 10/11/2018-patient is a chronic smoker she is on nicotine patch. Patient was strongly advised to quit smoking again smoking counseling was provided for more than 10 minutes. - Additional Information Resuscitation Status: Full Code Discharge Diet: Cardiac Discharge Activity: Activity As Tolerated Prescriptions: Albuterol Sulfate [Proair HFA Inhalation Aerosol 8.5 gm MDI] 1 puff IH Q4 PRN #2 mdi PRN Reason: Ciprofloxacin 500 mg PO DAILY #5 ml Prednisone [Deltasone 20 mg Tablet] 10 mg PO BID #20 tablet Home Medications: Montelukast Sodium [Singulair 10 mg Tablet] 10 mg PO QHS 07/22/18 Albuterol Sulfate [Proair HFA Inhalation Aerosol 8.5 gm MDI] 1 puff IH Q4 PRN #2 mdi 10/11/18 Ciprofloxacin 500 mg PO DAILY #5 ml 10/11/18 Fluticasone Propionate [Flonase Nasal [place] 50 Mcg/[place] 16 gm] 2 spray NASL DAILY spray.pump 10/11/18 Prednisone [Deltasone 20 mg Tablet] 10 mg PO BID #20 tablet 10/11/18 Sertraline HCl [Zoloft 50 mg Tablet] 50 mg PO QHS tablet 10/11/18 Tiotropium [place] [Spiriva Handihaler 5 Cap/Kit (18 Mcg/Cap)] 1 cap IH DAILY kit 10/11/18 History of Present Illness History of Present Illness: ISHA REDMOND is a 43 year old female who presented to the emergency room with a 4-day history of progressively worsening dyspnea. She admits that she began having mild to moderate dyspnea 3- 4 days prior to admission which is progressively worsened over that timeframe to now become severe dyspnea. She admits the accompanying symptoms of wheezing, a nonproductive cough and occasional episodes of posttussive emesis. She has noted no improvement in her symptoms when she utilizes her nebulizers and inhalers at home. She further admits that she has had similar episodes in the past on frequent occasions resulting in hospitalization for her asthma/COPD. She has not identified any aggravating or ameliorating factors for her acute dyspnea but does admit that she smokes cigarettes. In the emergency room she was found to have acute hypoxia which was responsive to supplemental oxygen however the patient continued to have significant work of breathing and eventually required placement of BiPAP. Because of the rib BiPAP requirement for continued adequate respiration patient will be admitted to the hospital for further evaluation and treatment. Physical Exam Vital Signs: Temp Pulse Resp BP Pulse Ox 98.7 F 64 20 132/87 H 97 10/11/18 11:18 10/11/18 11:18 10/11/18 11:18 10/11/18 11:18 10/11/18 11:18 Intake & Output 10/10/18 10/11/18 10/12/18 06:59 06:59 06:59 Intake Total 798 1276 740 Balance 798 1276 740 Weight 95.9 kg 95.6 kg General appearance: PRESENT: no acute distress Head exam: PRESENT: atraumatic Eye exam: PRESENT: PERRLA Mouth exam: PRESENT: moist, tongue midline Neck exam: ABSENT: carotid bruit, JVD, lymphadenopathy, thyromegaly Respiratory exam: PRESENT: decreased breath sounds Cardiovascular exam: PRESENT: tachycardia GI/Abdominal exam: PRESENT: normal bowel sounds, soft. ABSENT: distended, guarding, mass, organolmegaly, rebound, tenderness Extremities exam: PRESENT: full ROM. ABSENT: calf tenderness, clubbing, pedal edema Neurological exam: PRESENT: alert, awake, oriented to person, oriented to place, oriented to time, oriented to situation, CN II-XII grossly intact. ABSENT: motor sensory deficit Psychiatric exam: PRESENT: appropriate affect, normal mood. ABSENT: homicidal ideation, suicidal ideation Results Laboratory Results: 10/11/18 06:09 10/11/18 06:09 10/11/18 10/11/18 06:09 06:09 WBC 12.1 H RBC 4.83 Hgb 13.8 Hct 40.6 MCV 84 MCH 28.5 MCHC 33.9 RDW 14.8 H Plt Count 318 Seg Neutrophils % 72.9 Lymphocytes % 20.3 Monocytes % 5.4 Eosinophils % 0.2 Basophils % 1.2 Absolute Neutrophils 8.8 H Absolute Lymphocytes 2.4 Absolute Monocytes 0.7 Absolute Eosinophils 0.0 Absolute Basophils 0.1 Sodium 139.9 Potassium 4.7 Chloride 109 H Carbon Dioxide 21 L Anion Gap 10 BUN 16 Creatinine 0.70 Est GFR ( Amer) > 60 Est GFR (Non-Af Amer) > 60 Glucose 94 Calcium 9.5 Magnesium 2.1 Total Bilirubin 0.5 AST 14 ALT 15 Alkaline Phosphatase 110 Total Protein 6.7 Albumin 4.0 Impressions: Chest X-Ray 10/08/18 03:03 IMPRESSION: No acute cardiopulmonary disease. copyright 2010 [employer]- All Rights Reserved Qualifiers - * PATIENT BEING DISCHARGED WITH ANY OF THE FOLLOWING DIAGNOSIS: No VTE patient discharged on overlapping Therapy?: Yes
[2018-10-11 15:16] VITALS: BP 145/108
== END 2018-10-11 16:45 | disposition home or self-care (01) | DRG 190 ==
LOC: ER 23:48 → EH 10-08 04:17 → 4S 10-09
PROVIDERS: ADMIT Emergency Medicine; ATTEND Emergency Medicine
PROC: 5A09457 Assistance with Respiratory Ventilation, 24-96 Consecutive Hours, Continuous Positive Airway Pressure (ICD-10-PCS; principal; 2018-10-08)
DX: J44.1 Chronic obstructive pulmonary disease with (acute) exacerbation (principal); J96.21 Acute and chronic respiratory failure with hypoxia; F17.210 Nicotine dependence, cigarettes, uncomplicated; K21.9 Gastro-esophageal reflux disease without esophagitis; E66.9 Obesity, unspecified; F41.9 Anxiety disorder, unspecified; F43.10 Post-traumatic stress disorder, unspecified; Z82.49 Family history of ischemic heart disease and other diseases of the circulatory system; Z82.3 Family history of stroke; Z82.61 Family history of arthritis; Z83.438 Family history of other disorder of lipoprotein metabolism and other lipidemia; Z83.3 Family history of diabetes mellitus; Z91.040 Latex allergy status; Z88.5 Allergy status to narcotic agent
CPT/HCPCS: 36415; 36600; 71045; 80048; 80053; 82803; 83735; 84439; 84443; 84481; 85025; 87804; 94640; 94660; 96365; 96375; 99291; J1644; J2060; J2300; J2405; J2920; J3230; J3475; J3490; J7120; J7512; J7620

== ENCOUNTER 2019-05-03 20:08 | Emergency (ER) | payer OTHER ==
--- NOTE | 2019-05-03 22:09 | RADIOLOGY REPORT (SQ) ---
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 FINDINGS: No evidence for fracture dislocation. Glenohumeral and acromioclavicular joints are unremarkable. Soft tissues unremarkable. IMPRESSION: Negative left shoulder series
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
[2019-05-03 22:31] VITALS: BP 168/100
== END 2019-05-03 22:31 | disposition home or self-care (01) ==
LOC: ER 20:08
DX: S46.812A Strain of other muscles, fascia and tendons at shoulder and upper arm level, left arm, initial encounter (principal); F17.210 Nicotine dependence, cigarettes, uncomplicated; X58.XXXA Exposure to other specified factors, initial encounter; I10 Essential (primary) hypertension; J44.9 Chronic obstructive pulmonary disease, unspecified; Z98.51 Tubal ligation status; Z91.040 Latex allergy status; Z88.6 Allergy status to analgesic agent

== ENCOUNTER 2019-05-06 07:56 | Emergency (ER) | payer SELFPAY ==
[2019-05-06 08:05] VITALS: BP 153/92
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
== END 2019-05-06 08:40 | disposition home or self-care (01) ==
LOC: ER 07:56
DX: M79.10 Myalgia, unspecified site (principal); I10 Essential (primary) hypertension; M25.512 Pain in left shoulder; R51 Headache; V87.7XXA Person injured in collision between other specified motor vehicles (traffic), initial encounter; F17.200 Nicotine dependence, unspecified, uncomplicated; J44.9 Chronic obstructive pulmonary disease, unspecified
CPT/HCPCS: 99283

== ENCOUNTER 2019-08-15 08:06 | Emergency (ER) | payer SELFPAY ==
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
[2019-08-15 10:49] VITALS: BP 130/100
== END 2019-08-15 10:51 | disposition home or self-care (01) ==
LOC: ER 08:06
DX: T21.17XA Burn of first degree of female genital region, initial encounter (principal); X10.0XXA Contact with hot drinks, initial encounter; F17.200 Nicotine dependence, unspecified, uncomplicated; Z98.51 Tubal ligation status
CPT/HCPCS: 99283

== ENCOUNTER 2019-10-15 11:29 | Emergency (ER) | payer SELFPAY ==
[2019-10-15 11:40] VITALS: BP 144/90
[2019-10-15] MEDS ORDERED: IBUPROFEN 800 MG TABLET PO ONE (12:34)
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
== END 2019-10-15 12:54 | disposition home or self-care (01) ==
LOC: ER 11:29
DX: M25.552 Pain in left hip (principal); J44.9 Chronic obstructive pulmonary disease, unspecified; Z98.51 Tubal ligation status
CPT/HCPCS: 99283

== ENCOUNTER 2019-10-26 11:45 | Emergency (ER) | payer SELFPAY ==
--- NOTE | 2019-10-26 11:58 | ER Document Report ---
ED Medical Screen (RME) - General Chief Complaint: Vaginal Discharge Stated Complaint: VAGINAL ISSUES Time Seen by Provider: 10/26/19 11:56 TRAVEL OUTSIDE OF THE [place] IN LAST 30 DAYS: No - HPI Notes: 10/26/19 11:58 Patient is a 44-year-old female complaining of vaginal discharge and odor over the past several days. Patient states on occasion she will have some lower pelvic soreness, but nothing currently. History of tubal ligation otherwise. No fever, vomiting, diarrhea, dysuria. I have treated and performed a rapid initial assessment of this patient. A comprehensive ED assessment and evaluation of the patient, analysis of test results and completion of medical decision making process will be conducted by additional ED providers. PHYSICAL EXAMINATION: GENERAL: Well-appearing, well-nourished and in no acute distress. A&Ox4. Answers questions appropriately. - Related Data Allergies/Adverse Reactions: codeine Allergy (Verified 10/26/19 11:55) latex Allergy (Verified 10/26/19 11:55) RASH, SWOLLEN TONGUE Past Medical History - Social History Frequency of alcohol use: None Drug Abuse: None - Past Medical History Cardiac Medical History: Denies: Hx Coronary Artery Disease, Hx DVT, Hx Hypercholesterolemia, Hx Hypertension, Hx Pulmonary Embolism Pulmonary Medical History: Reports: Hx Asthma, Hx COPD, Hx Respiratory Failure Denies: Hx Intubation Neurological Medical History: Denies: Hx Seizures Endocrine Medical History: Denies: Hx Diabetes Mellitus Type 1, Hx Diabetes Mellitus Type 2, Hx Hyperthyroidism, Hx Hypothyroidism Renal/ Medical History: Denies: Hx Peritoneal Dialysis GI Medical History: Reports: Hx Gastroesophageal Reflux Disease. Denies: Hx Cirrhosis, Hx Hepatitis Musculoskeltal Medical History: Denies Hx Arthritis, Denies Hx Gout Skin Medical History: Denies Hx Eczema, Denies Hx Psoriasis Psychiatric Medical History: Reports: Hx Anxiety, Hx Depression, Hx Post Traumatic Stress Disorder Infectious Medical History: Denies: Hx Hepatitis Past Surgical History: Reports: Hx Adenoidectomy, Hx Tonsillectomy, Hx Tubal Ligation - Immunizations Hx Diphtheria, Pertussis, Tetanus Vaccination: Yes Physical Exam - Vital signs Vitals: Temp Pulse Resp BP Pulse Ox 98.6 F 84 16 146/93 H 93 10/26/19 11:49 10/26/19 11:49 10/26/19 11:49 10/26/19 11:49 10/26/19 11:49 Course - Vital Signs Vital signs: Temp Pulse Resp BP Pulse Ox 98.6 F 84 16 146/93 H 93 10/26/19 11:49 10/26/19 11:49 10/26/19 11:49 10/26/19 11:49 10/26/19 11:49
[2019-10-26 12:59] LABS: APPEARANCE,URINE CLEAR; BILIRUBIN,URINE NEGATIVE (NEGATIVE); COLOR,URINE YELLOW; GLUCOSE, URINE NEGATIVE (NEGATIVE); KETONES,URINE NEGATIVE (NEGATIVE); PROTEIN,URINE NEGATIVE (NEGATIVE); URINE SPECIFIC GRAVITY 1.013; UROBILINOGEN,URINE NEGATIVE mg/dL (<2.0)
[2019-10-26] MEDS ORDERED: CEFTRIAXONE INJ 250 MG VIAL IM ONE (14:38)
[2019-10-26] MEDS ORDERED: AZITHROMYCIN 250 MG TABLET PO ONE (14:38)
[2019-10-26] MEDS ORDERED: LIDOCAINE 1% INJ (10 MG/ML) 10 ML MDV INJ ONE (14:39)
--- NOTE | 2019-10-26 14:40 | ER Document Report ---
HPI - HPI Patient complains to provider of: Vaginal discharge Time Seen by Provider: 10/26/19 14:20 Onset: Other - 4 days Onset/Duration: Persistent Quality of pain: Achy Pain Level: 2 Context: Patient presents complaining of vaginal discharge with odor for the past 4 days. Patient states she noticed an odor and then douched and then the discharge started. Patient does report lower pelvic discomfort. No vomiting or diarrhea. No fever. Patient denies any urinary symptoms. Associated Symptoms: Other - General discharge. denies: Fever, Vomiting Exacerbated by: Denies Relieved by: Denies Similar symptoms previously: Yes Recently seen / treated by doctor: No - ROS ROS below otherwise negative: Yes Systems Reviewed and Negative: Yes All other systems reviewed and negative - CONSTITUTIONAL Constitutional: DENIES: Fever - NEURO Neurology: DENIES: Weakness - GASTROINTESTINAL Gastrointestinal: REPORTS: Abdominal Pain. DENIES: Nausea, Patient vomiting - URINARY Urinary: DENIES: Dysuria - REPRODUCTIVE Reproductive: REPORTS: Abnormal bleeding / discharge. DENIES: : - DERM Skin Color: Normal Skin Problems: None Past Medical History - General Information source: Patient - Social History Smoking Status: Unknown if Ever Smoked Frequency of alcohol use: None Drug Abuse: None Occupation: None Family History: Arthritis, CAD, CVA, DM, Hyperlipidemia, Hypertension, Malignancy, Thyroid Disfunction Patient has suicidal ideation: No Patient has homicidal ideation: No - Past Medical History Cardiac Medical History: Denies: Hx Coronary Artery Disease, Hx DVT, Hx Hypercholesterolemia, Hx Hypertension, Hx Pulmonary Embolism Pulmonary Medical History: Reports: Hx Asthma, Hx COPD Denies: Hx Intubation Neurological Medical History: Denies: Hx Seizures Renal/ Medical History: Denies: Hx Peritoneal Dialysis GI Medical History: Reports: Hx Gastroesophageal Reflux Disease Skin Medical History: Denies Hx Eczema, Denies Hx Psoriasis Psychiatric Medical History: Reports: Hx Anxiety, Hx Depression, Hx Post Traumatic Stress Disorder Past Surgical History: Reports: Hx Adenoidectomy, Hx Tonsillectomy, Hx Tubal Ligation - Immunizations Hx Diphtheria, Pertussis, Tetanus Vaccination: Yes Vertical Provider Document - CONSTITUTIONAL Agree With Documented VS: Yes Exam Limitations: No Limitations General Appearance: WD/WN, No Apparent Distress - INFECTION CONTROL TRAVEL OUTSIDE OF THE [place] IN LAST 30 DAYS: No - HEENT HEENT: Atraumatic, Normocephalic - NECK Neck: Normal Inspection, Supple. negative: Lymphadenopathy-Left, Lymphadenopathy-Right - RESPIRATORY Respiratory: Breath Sounds Normal, No Respiratory Distress - CARDIOVASCULAR Cardiovascular: Regular Rate, Regular Rhythm - GI/ABDOMEN Gastrointestinal: Abdomen Soft, Abdomen Tender - lower pelvic - REPRODUCTIVE Female Genitalia: Abnormal Inspection - +vag discharge-white, CMT. negative: Adnexal Pain-Right, Adnexal Pain-Left - BACK Back: Normal Inspection, Abnormal Inspection. negative: CVA Tenderness-Right, CVA Tenderness-Left - MUSCULOSKELETAL/EXTREMETIES Musculoskeletal/Extremeties: MAEW, FROM - NEURO Level of Consciousness: Awake, Alert, Appropriate Motor/Sensory: No Motor Deficit - DERM Integumentary: Warm, Dry, No Rash Course - Vital Signs Vital signs: Temp Pulse Resp BP Pulse Ox 98.6 F 84 16 146/93 H 93 10/26/19 11:49 10/26/19 11:49 10/26/19 11:49 10/26/19 11:49 10/26/19 11:49 Discharge - Discharge Clinical Impression: PID (acute pelvic inflammatory disease), Vaginal discharge Condition: Stable Disposition: HOME, SELF-CARE Instructions: Azithromycin ([facility]), Doxycycline ([facility]), Metronidazole ([facility]), Pelvic Inflammatory Disease ([facility]), Rocephin ([facility]), Vaginosis, Bacterial ([facility]) Additional Instructions: Return immediately for any new or worsening symptoms Followup with your primary care provider, call tomorrow to make a followup appointment Cultures are pending, we will call if you need any additional treatment. Prescriptions: Doxycycline Hyclate 100 mg PO BID #28 tablet. Metronidazole [Flagyl 500 mg Tablet] 500 mg PO BID #28 tablet Referrals: [facility] [Provider Group] - Follow up as needed
[2019-10-26 14:47] LABS: BACTERIA (WET MOUNT) 3+ BACTERIA SEEN; EPITHELIALS (WET MOUNT) 4+ EPITHELIALS SEEN; RBCS (WET MOUNT) NO RBCS SEEN; T.VAGINALIS (WET MOUNT) NO TRICHOMONAS SEEN; WBCS (WET MOUNT) RARE WBCS SEEN; YEAST (WET MOUNT) NO YEAST SEEN
[2019-10-26 15:43] VITALS: BP 126/90
[2019-10-26 16:12] LABS: CHLAM PCR NOT DETECTED (NOT DETECT)
== END 2019-10-26 15:42 | disposition home or self-care (01) ==
LOC: ER 11:45
DX: N73.9 Female pelvic inflammatory disease, unspecified (principal); J44.9 Chronic obstructive pulmonary disease, unspecified
CPT/HCPCS: 87210; 81025; 81001; 87491; 87591; J0696

== ENCOUNTER 2020-02-01 15:53 | Emergency (ER) | payer SELFPAY ==
--- NOTE | 2020-02-01 16:29 | ER Document Report ---
ED Medical Screen (RME) - General Chief Complaint: Dizziness Stated Complaint: LOW BACK PAIN Time Seen by Provider: 02/01/20 16:13 TRAVEL OUTSIDE OF THE [place] IN LAST 30 DAYS: No - HPI Notes: 02/01/20 16:26 44-year-old female with several complaints presents emergency room for complaints of having dizziness, blurred vision when she is having painful bowel movements for the last year. Patient states she fell a year ago on her coccyx, has had pain since and was told she had a "tilted coccyx" and this was the reason why. Patient has been taking multiple doses of prednisone to manage this lower back pain as well as for her asthma patient not followed up with a primary care provider regarding this because she does not have insurance, she has been going to a chiropractor to give her massages for lower back pain. Patient states that she has been taking Colace for constipation. Patient states that she has become concerned because she feels a "zing" from her rectum up to her head with dizziness and blurred vision which is making her very concerned. Denies any chest pain shortness of breath, fever chills I have greeted and performed a rapid initial assessment of this patient. A comprehensive ED assessment and evaluation of the patient, analysis of test results and completion of the medical decision making process will be conducted by additional ED providers. PHYSICAL EXAMINATION: GENERAL: Well-appearing, well-nourished and in no acute distress. CV: s1, s2 regular LUNGS: No respiratory distress - Related Data Allergies/Adverse Reactions: codeine Allergy (Verified 10/26/19 11:55) latex Allergy (Verified 10/26/19 11:55) RASH, SWOLLEN TONGUE Home Medications: Spiriva Past Medical History - Past Medical History Cardiac Medical History: Denies: Hx Coronary Artery Disease, Hx DVT, Hx Hypercholesterolemia, Hx Hypertension, Hx Pulmonary Embolism Pulmonary Medical History: Reports: Hx Asthma, Hx COPD, Hx Respiratory Failure Denies: Hx Intubation Neurological Medical History: Denies: Hx Seizures Endocrine Medical History: Denies: Hx Diabetes Mellitus Type 1, Hx Diabetes Mellitus Type 2, Hx Hyperthyroidism, Hx Hypothyroidism Renal/ Medical History: Denies: Hx Peritoneal Dialysis GI Medical History: Reports: Hx Gastroesophageal Reflux Disease. Denies: Hx Cirrhosis, Hx Hepatitis Musculoskeltal Medical History: Denies Hx Arthritis, Denies Hx Gout Skin Medical History: Denies Hx Eczema, Denies Hx Psoriasis Psychiatric Medical History: Reports: Hx Anxiety, Hx Depression, Hx Post Traumatic Stress Disorder Infectious Medical History: Denies: Hx Hepatitis Past Surgical History: Reports: Hx Adenoidectomy, Hx Tonsillectomy, Hx Tubal Ligation - Immunizations Hx Diphtheria, Pertussis, Tetanus Vaccination: Yes Physical Exam - Vital signs Vitals: Temp Pulse Resp BP Pulse Ox 98.5 F 68 18 144/95 H 99 02/01/20 15:58 02/01/20 15:58 02/01/20 15:58 02/01/20 15:58 02/01/20 15:58 Course - Vital Signs Vital signs: Temp Pulse Resp BP Pulse Ox 98.5 F 68 18 144/95 H 99 02/01/20 16:13 02/01/20 15:58 02/01/20 15:58 02/01/20 15:58 02/01/20 15:58
--- NOTE | 2020-02-01 17:03 | RADIOLOGY REPORT (SQ) ---
EXAM DESCRIPTION: SACRUM AND COCCYX IMAGES COMPLETED DATE/TIME: 02/01/2020 4:53 pm REASON FOR STUDY: fell x 1 yr ago, lbp/coccyx pain r/o fx COMPARISON: None. NUMBER OF VIEWS: Three views. TECHNIQUE: AP, lateral, and tilt views of the sacrum and coccyx. LIMITATIONS: None. FINDINGS: MINERALIZATION: Normal. BONES: No acute fracture or dislocation. Prominent anterior angulation at the sacrococcygeal junctio n, approximately 90. No worrisome bone lesions. SOFT TISSUES: No soft tissue swelling. No foreign body. OTHER: No other significant finding. IMPRESSION: PROMINENT ANTERIOR ANGULATION AT THE SACROCOCCYGEAL JUNCTION WHICH APPEARS TO BE CHRONIC . MAY BE RELATED TO OLD TRAUMA. NO ACUTE FRACTURE VISUALIZED. TECHNICAL DOCUMENTATION: JOB ID: [id number] 2010 [email or web address]- All Rights Reserved Reading location - IP/workstation name: [email or web address]
--- NOTE | 2020-02-01 17:04 | RADIOLOGY REPORT (SQ) ---
EXAM DESCRIPTION: CHEST SINGLE VIEW IMAGES COMPLETED DATE/TIME: 02/01/2020 4:53 pm REASON FOR STUDY: fell x 1 yr ago, lbp/coccyx pain r/o fx COMPARISON: 10/08/2018. EXAM PARAMETERS: NUMBER OF VIEWS: One view. TECHNIQUE: Single frontal radiographic view of the chest acquired. RADIATION DOSE: NA LIMITATIONS: None. FINDINGS: LUNGS AND PLEURA: No opacities, masses or pneumothorax. No pleural effusion. MEDIASTINUM AND HILAR STRUCTURES: No masses. Contour normal. HEART AND VASCULAR STRUCTURES: Heart normal in size. Normal vasculature. BONES: No acute findings. HARDWARE: None in the chest. OTHER: No other significant finding. IMPRESSION: NO ACUTE RADIOGRAPHIC FINDING IN THE CHEST. TECHNICAL DOCUMENTATION: JOB ID: [id number] 2010 [employer]- All Rights Reserved Reading location - IP/workstation name: [email or web address]
--- NOTE | 2020-02-01 17:04 | RADIOLOGY REPORT (SQ) ---
EXAM DESCRIPTION: L SPINE WHOLE IMAGES COMPLETED DATE/TIME: 02/01/2020 4:53 pm REASON FOR STUDY: fell x 1 yr ago, lbp/coccyx pain r/o fx COMPARISON: None. NUMBER OF VIEWS: Five views including obliques. TECHNIQUE: AP, lateral, oblique, and sacral radiographic images acquired of the lumbar spine. LIMITATIONS: None. FINDINGS: MINERALIZATION: Normal. SEGMENTATION: Normal. No transitional anatomy. ALIGNMENT: Normal. VERTEBRAE: Maintained height. No fracture or worrisome bone lesion. DISCS: Preserved height. No significant osteophytes or end plate irregularity. POSTERIOR ELEMENTS: Pedicles and facets are intact. No pars defect or posterior arch defects. HARDWARE: None in the spine. PARASPINAL SOFT TISSUES: Normal. PELVIS: Intact as visualized. No fractures or worrisome bone lesions. SI joints intact. OTHER: No other significant finding. IMPRESSION: NORMAL 5 VIEW LUMBAR SPINE. TECHNICAL DOCUMENTATION: JOB ID: [id number] 2010 [employer]- All Rights Reserved Reading location - IP/workstation name: [email or web address]
--- NOTE | 2020-02-01 17:09 | ER Document Report ---
ED General - General Chief Complaint: Dizziness Stated Complaint: LOW BACK PAIN Time Seen by Provider: 02/01/20 16:13 Primary Care Provider: [facility] [Provider Group] - Follow up as needed Notes: 44-year-old lady with a history of chronic back issues presents with back pain. She said her back is been "out" which she cannot really describe for 4 days. She said normally goes "backend" after a few days. She is normally able to have a massage and feel better but has not been able to secondary to coronavirus. She has a long history of back pain after an injury several years ago where she fell on her bottom. She is not reinjured it at all lately. She was seen by a chiropractor had multiple adjustments. She has no lower extremity neurologic symptoms loss of bowel or bladder injection drug use or saddle anesthesia but says once in a while she gets pain that "zings" from her anus upper back. She does not have a fever. She has no chest pain or shortness of breath. Triage orders included plain films. No urinary symptoms. TRAVEL OUTSIDE OF THE [place] IN LAST 30 DAYS: No - Related Data Allergies/Adverse Reactions: codeine Allergy (Verified 10/26/19 11:55) latex Allergy (Verified 10/26/19 11:55) RASH, SWOLLEN TONGUE Home Medications: Spiriva Past Medical History - Social History Smoking Status: Unknown if Ever Smoked Family History: Arthritis, CAD, CVA, DM, Hyperlipidemia, Hypertension, Malignancy, Thyroid Disfunction Patient has homicidal ideation: No - Past Medical History Cardiac Medical History: Denies: Hx Coronary Artery Disease, Hx DVT, Hx Hypercholesterolemia, Hx Hypertension, Hx Pulmonary Embolism Pulmonary Medical History: Reports: Hx Asthma, Hx COPD, Hx Respiratory Failure Denies: Hx Intubation Neurological Medical History: Denies: Hx Seizures Endocrine Medical History: Denies: Hx Diabetes Mellitus Type 1, Hx Diabetes Mellitus Type 2, Hx Hyperthyroidism, Hx Hypothyroidism Renal/ Medical History: Denies: Hx Peritoneal Dialysis GI Medical History: Reports: Hx Gastroesophageal Reflux Disease. Denies: Hx Cirrhosis, Hx Hepatitis Musculoskeletal Medical History: Denies Hx Arthritis, Denies Hx Gout Skin Medical History: Denies Hx Eczema, Denies Hx Psoriasis Psychiatric Medical History: Reports: Hx Anxiety, Hx Depression, Hx Post Traumatic Stress Disorder Infectious Medical History: Denies: Hx Hepatitis Past Surgical History: Reports: Hx Adenoidectomy, Hx Tonsillectomy, Hx Tubal Ligation - Immunizations Hx Diphtheria, Pertussis, Tetanus Vaccination: Yes Review of Systems - Review of Systems Notes: REVIEW OF SYSTEMS GEN: Denies fever, chills, weight loss ENT: Denies sore throat, nasal discharge, ear pain EYES: Denies blurry vision, eye pain, discharge CV: Denies chest pain, palpitations, edema RESP: Denies cough, shortness of breath, wheezing GI: Denies abdominal pain, nausea, vomiting, diarrhea MSK: HPI SKIN: Denies rash, skin lesions LYMPH: Denies swollen glands/lymph nodes NEURO: Denies headache, focal weakness or numbness, dizziness PSYCH: Denies depression, suicidal or homicidal ideation PHYSICAL EXAMINATION General: No acute distress, well-nourished Head: Atraumatic, normocephalic ENT: Mouth normal, oropharynx moist, no exudates or tonsillar enlargement Eyes: Conjunctiva normal, pupils equal, lids normal Neck: No JVD, supple, no guarding CVS: Normal rate, regular rhythm, no murmurs Resp: No resp distress, equal and normal breath sounds bilaterally GI: Nondistended, soft, no tenderness to palpation, no rebound or guarding Ext: No deformities, no edema, normal range of motion in upper and lower ext Back: No CVA or midline TTP Skin: No rash, warm Lymphatic: No lymphadeopathy noted Neuro: Awake, alert. Face symmetric. GCS 15. Out of 5 strength in knees ankles in all muscle groups of the lower extremity with normal sensation and reflexes throughout. Physical Exam - Vital signs Vitals: Temp Pulse Resp BP Pulse Ox 98.5 F 68 18 144/95 H 99 02/01/20 15:58 02/01/20 15:58 02/01/20 15:58 02/01/20 15:58 02/01/20 15:58 Course - Re-evaluation Re-evalutation: 02/01/20 17:19 Acute on chronic back pain, her regimen has been disturbed secondary to coronavirus. She does not have any evidence of spinal cord compression myelopathy cauda equina, MS or any other severe disease. No think blood tests are going to elucidate the cause of her pain so I canceled them. Her x-rays, which are being ordered for remote injury, do not show acute injury. I am going to prescribe a muscle relaxer for her which is worked in the past, and simply think that she is suffering from back spasms. She will be formally referred to spine and I recommended against chiropractic. I have discussed with the patient there likely diagnosis, aftercare plan, follow-up plans and my usual and customary return precautions. They verbalized understanding of this. - Vital Signs Vital signs: Temp Pulse Resp BP Pulse Ox 98.5 F 68 18 144/95 H 99 02/01/20 16:13 02/01/20 15:58 02/01/20 15:58 02/01/20 15:58 02/01/20 15:58 - Diagnostic Test Radiology reviewed: Image reviewed, Reports reviewed - EKG Interpretation by Me EKG shows normal: Sinus rhythm Rate: Normal Rhythm: NSR - No old, no change When compared to previous EKG there are: Previous EKG unavailable Discharge - Discharge Clinical Impression: Low back pain Qualifiers: Chronicity: acute Back pain laterality: bilateral Sciatica presence: without sciatica Qualified Code(s): M54.5 - Low back pain Condition: Good Disposition: HOME, SELF-CARE Additional Instructions: As we discussed you will need to establish care with a spine doctor. Do not find any evidence of spinal cord or nerve issues with you today. Prescriptions: Methocarbamol [Robaxin 750 mg Tablet] 750 mg PO Q4 #40 tablet Referrals: [facility] [Provider Group] - Follow up as needed
[2020-02-01 17:31] VITALS: BP 139/96
--- NOTE | 2020-02-01 21:02 | EKG REPORT ---
SEVERITY:- NORMAL ECG - SINUS RHYTHM : Confirmed by: Nancy Cohen MD 01-Feb-2020 21:00:54
== END 2020-02-01 17:29 | disposition home or self-care (01) ==
LOC: ER 15:53
DX: M54.5 Low back pain (principal); R42 Dizziness and giddiness; R20.0 Anesthesia of skin; Z88.8 Allergy status to other drugs, medicaments and biological substances; Z79.899 Other long term (current) drug therapy; J44.9 Chronic obstructive pulmonary disease, unspecified
CPT/HCPCS: 71045; 72110; 72220; 93005; 93010; 99283

== ENCOUNTER → 2020-04-25 | Outpatient (CLI) | payer OTHER ==
[2020-04-25 09:30] LABS: ABSOLUTE BASOPHILS # (AUTO) 0.1 10^3/uL (0.0-0.2); ABSOLUTE EOSINOPHILS # (AUTO) 0.1 10^3/uL (0.0-0.6); ABSOLUTE LYMPHOCYTES (AUTO) 2.2 10^3/uL (0.5-4.7); ABSOLUTE MONOCYTES (AUTO) 0.5 10^3/uL (0.1-1.4); ABSOLUTE NEUT (AUTO) 4.6 10^3/uL (1.7-8.2); EOSINOPHILS % (AUTO) 0.7 % (0-6); HEMATOCRIT 44.2 % (36.0-47.0); HEMOGLOBIN 15.1 g/dL (12.0-15.5); LYMPHOCYTES % (AUTO) 29.8 % (13-45); MEAN CORPUSCULAR HEMOGLOBIN 29.6 pg (27.0-33.4); MEAN CORPUSCULAR HGB CONC 34.3 g/dL (32.0-36.0); MEAN CORPUSCULAR VOLUME 86 fl (80-97); MONOCYTES % (AUTO) 6.4 % (3-13); PLATELET COUNT 349 10^3/uL (150-450); RED BLOOD COUNT 5.12 10^6/uL (3.72-5.28); RED CELL DISTRIBUTION WIDTH 14.6 % (11.5-14.0); SEGMENTED NEUTROPHILS % (AUTO) 62.1 % (42-78); TOTAL CELLS COUNTED % (AUTO) 100 %; WHITE BLOOD COUNT 7.5 10^3/uL (4.0-10.5)
[2020-04-25 09:52] LABS: ALBUMIN 4.8 g/dL (3.5-5.0); ALKALINE PHOSPHATASE 102 U/L (38-126); ANION GAP 9 (5-19); ASPARTATE AMINO TRANSFERASE 21 U/L (14-36); BILIRUBIN,TOTAL 0.8 mg/dL (0.2-1.3); BLOOD UREA NITROGEN 10 mg/dL (7-20); CALCIUM 9.8 mg/dL (8.4-10.2); CARBON DIOXIDE 21 mmol/L (22-30); CHLORIDE 107 mmol/L (98-107); GLUCOSE 107 mg/dL (75-110); POTASSIUM 4.7 mmol/L (3.6-5.0); TOTAL PROTEIN 8.3 g/dL (6.3-8.2)
== END ==
LOC: OD 08:18
PROVIDERS: ATTEND Family Medicine
DX: Z00.00 Encounter for general adult medical examination without abnormal findings (principal)
CPT/HCPCS: 36415; 80053; 83036; 84443; 85025

== ENCOUNTER → 2020-06-06 | Outpatient (CLI) | payer OTHER ==
[2020-06-06 10:35] LABS: ANION GAP 10 (5-19); BLOOD UREA NITROGEN 12 mg/dL (7-20); CALCIUM 9.7 mg/dL (8.4-10.2); CARBON DIOXIDE 24 mmol/L (22-30); CHLORIDE 105 mmol/L (98-107); GLUCOSE 98 mg/dL (75-110); POTASSIUM 4.6 mmol/L (3.6-5.0)
--- NOTE | 2020-06-06 12:24 | RADIOLOGY REPORT (SQ) ---
EXAM DESCRIPTION: SACRUM AND COCCYX IMAGES COMPLETED DATE/TIME: 06/06/2020 10:00 am REASON FOR STUDY: SACROCOCCYGEAL DISORDERS, NOT ELSEWHERE CLASSIFIED Z00.00 ENCNTR FOR GENERAL ADUL T MEDICAL EXAM W/O ABNORMAL FI M53.3 SACROCOCCYGEAL DISORDERS, NOT ELSEWHERE CLASSIFIED COMPARISON: 02/01/2020 NUMBER OF VIEWS: Three views. TECHNIQUE: AP, lateral, and tilt views of the sacrum and coccyx. LIMITATIONS: None. FINDINGS: MINERALIZATION: Normal. BONES: No acute fracture or dislocation. No worrisome bone lesions. SOFT TISSUES: No soft tissue swelling. No foreign body. OTHER: The coccyx is significantly angle in relation to the sacrum. This is a chronic finding. IMPRESSION: No acute findings as described. The coccyx forms a 90 angle with the sacrum. This is chronic. TECHNICAL DOCUMENTATION: JOB ID: [id number] 2010 [employer]- All Rights Reserved Reading location - IP/workstation name: [email or web address]
== END ==
LOC: CCC 09:23
PROVIDERS: ATTEND Internal Medicine
DX: Z00.00 Encounter for general adult medical examination without abnormal findings (principal); M53.3 Sacrococcygeal disorders, not elsewhere classified
CPT/HCPCS: 36415; 72220; 80048; 83036

== ENCOUNTER 2020-06-16 04:10 | Emergency (ER) | payer OTHER ==
--- NOTE | 2020-06-16 05:49 | ER Document Report ---
ED GI/ - General Chief Complaint: Abdominal Pain Stated Complaint: ABDOMINAL PAIN, VOMITING Time Seen by Provider: 06/16/20 05:37 Primary Care Provider: [facility] [Primary Care Provider] - Follow up in 3-5 days Notes: Patient is a 44-year-old female who presents emergency department with a chief complaint of abdominal pain. Patient states that she has had her pain for the past about 2 weeks. She states that over the past 3 days, her pain has gotten progressively worse. States the pain is in her mid abdomen just superior to her navel. She states that she has been vomiting. States that it is a yellow color. Patient reports that she has been drinking [employer] coffee for the past 2 weeks. She states that she feels the creamer is not good. This morning when she looked at her creamer, "there were chunks in the creamer." Patient denies any lactose intolerance. Denies any diarrhea. Patient takes ibuprofen daily for pain. Reports history of asthma. Denies any contact with anybody who has tested positive for COVID-19. TRAVEL OUTSIDE OF THE [place] IN LAST 30 DAYS: No - Related Data Allergies/Adverse Reactions: codeine Allergy (Verified 10/26/19 11:55) latex Allergy (Verified 10/26/19 11:55) RASH, SWOLLEN TONGUE Home Medications: Albuterol Past Medical History - Social History Smoking Status: Current Every Day Smoker Chew tobacco use (# tins/day): No Frequency of alcohol use: None Drug Abuse: None Family History: Arthritis, CAD, CVA, DM, Hyperlipidemia, Hypertension, Malignancy, Thyroid Disfunction - Past Medical History Cardiac Medical History: Denies: Hx Coronary Artery Disease, Hx DVT, Hx Hypercholesterolemia, Hx Hypertension, Hx Pulmonary Embolism Pulmonary Medical History: Reports: Hx Asthma, Hx COPD, Hx Respiratory Failure Denies: Hx Intubation Neurological Medical History: Denies: Hx Seizures Endocrine Medical History: Denies: Hx Diabetes Mellitus Type 1, Hx Diabetes Mellitus Type 2, Hx Hyperthyroidism, Hx Hypothyroidism Renal/ Medical History: Denies: Hx Peritoneal Dialysis GI Medical History: Reports: Hx Gastroesophageal Reflux Disease. Denies: Hx Cirrhosis, Hx Hepatitis Musculoskeletal Medical History: Denies Hx Arthritis, Denies Hx Gout Skin Medical History: Denies Hx Eczema, Denies Hx Psoriasis Psychiatric Medical History: Reports: Hx Anxiety, Hx Depression, Hx Post Traumatic Stress Disorder Infectious Medical History: Denies: Hx Hepatitis Past Surgical History: Reports: Hx Adenoidectomy, Hx Tonsillectomy, Hx Tubal Ligation - Immunizations Hx Diphtheria, Pertussis, Tetanus Vaccination: Yes Review of Systems - Review of Systems Notes: REVIEW OF SYSTEMS: CONSTITUTIONAL : Denies recent illness. Denies recent unintentional weight loss. Denies fever, chills, or sweats. EENT: Denies eye, ear, throat, or mouth pain, discharge, or symptoms. Denies nasal or sinus congestion. CARDIOVASCULAR: Denies chest pain. RESPIRATORY: Denies shortness of breath, cough, congestion, difficulty breathing, or wheezing. GASTROINTESTINAL: See HPI. GENITOURINARY: Denies difficulty urinating, burning, blood in urine, urgency or frequency. MUSCULOSKELETAL: Denies neck and back pain. Denies joint pain or swelling. SKIN: Denies rash, itchiness, or lesions HEMATOLOGIC : Denies easy bruising or bleeding. LYMPHATIC: Denies swollen, painful, enlarged glands. NEUROLOGICAL: Denies no numbness or tingling denies weakness. Denies headache. Denies altered mental status. Denies alteration in speech. PSYCHIATRIC: Denies stress, anxiety, alteration in sleep patterns, or depression. All other systems reviewed and negative. Physical Exam - Vital signs Vitals: Temp Pulse Resp BP Pulse Ox 98.5 F 79 18 127/88 H 97 06/16/20 04:18 06/16/20 04:18 06/16/20 04:18 06/16/20 04:18 06/16/20 04:18 - Notes Notes: PHYSICAL EXAMINATION: GENERAL: Appears well, healthy, well-nourished, no acute distress. HEAD: Normocephalic, atraumatic. EYES: PERRL, conjunctiva normal, all extraocular movements intact, sclera nonicteric ENT: Moist mucous membranes. NECK: Supple, no noticeable swelling, redness, rash. Normal range of motion. LUNGS: Equal breath sounds bilaterally and clear to auscultation. No wheezes rales or rhonchi. CARDIOVASCULAR: S1-S2, regular rate, regular rhythm. Radial pulses 2+, normal. ABDOMEN: Normoactive bowel sounds. Soft, mildly tender mid upper abdomen, no guarding, no rebound tenderness, and no masses palpated. EXTREMITIES: Normal strength and range of motion, no pitting or edema. No cyanosis. NEUROLOGICAL: Moves all extremities upon command. Strength 5/5 in all extremities. PSYCH: Normal mood, normal affect. SKIN: Warm, dry. No rash, lesions, ulcerations noted. Normal skin turgor. Course - Re-evaluation Re-evalutation: 06/16/20 07:54 CO2 is slightly low, most likely due to the patient vomiting. Lipase is unremarkable. Liver enzymes are normal. Urinalysis is unremarkable. Awaiting hematology. Patient states that she does feel better after receiving IV fluids, Pepcid, Zofran, and Bentyl. Will reassess when CBC has resulted. 06/16/20 08:37 Hematology is unremarkable. Patient feels better. At this time, I do not suspect patient has appendicitis, mesenteric ischemia, or any life-threatening etiology at this time. Follow-up precautions were given. Verbal discharge instructions were given to the patient. They verbalized understanding. They are stable for discharge. - Vital Signs Vital signs: Temp Pulse Resp BP Pulse Ox 98.5 F 79 18 127/88 H 97 06/16/20 04:18 06/16/20 04:18 06/16/20 04:18 06/16/20 04:18 06/16/20 04:18 - Laboratory Result Diagrams: 06/16/20 07:46 06/16/20 06:49 Laboratory results interpreted by me: 06/16/20 06/16/20 06/16/20 06:49 06:49 07:46 RDW 14.4 H Sodium 135.6 L Chloride 108 H Carbon Dioxide 18 L Urine Urobilinogen 2.0 H Discharge - Discharge Clinical Impression: Abdominal pain Qualifiers: Abdominal location: unspecified location Qualified Code(s): R10.9 - Unspecified abdominal pain GERD (gastroesophageal reflux disease) Qualifiers: Esophagitis presence: esophagitis presence not specified Qualified Code(s): K2 1.9 - Gastro-esophageal reflux disease without esophagitis Condition: Stable Disposition: HOME, SELF-CARE Additional Instructions: Your symptoms appear to be most consistent with stomach or upper intestinal irritation. Please begin taking famotidine 40 mg in the morning and 40 mg at night. This medicine can be purchased directly [id number]. You may also take medicine such as Pepto-Bismol or Tums to assist with your pain. Please return to emergency department immediately if you have worsening of your pain, s hortness of breath, vomiting, become unable to exert yourself due to pain or difficulty breathing, you pass out, or have any pain that radiates into your arms, jaw, or back. Please also return if you have any additional symptoms that are concerning to you. As we have discussed, the most important thing is lifestyle changes. You need to avoid smoking, sodas, tea, coffee, alcohol, spicy foods, and acidic foods such as citrus fruits, tomato based products, berries, and most fruit juices. Referrals: [facility] [Primary Care Provider] - Follow up in 3-5 days
[2020-06-16] MEDS ORDERED: DICYCLOMINE HCL 20 MG TABLET PO ONE (06:03)
[2020-06-16] MEDS ORDERED: ONDANSETRON HCL INJ/PF 4 MG/2 ML SDV IV ONE (06:03)
[2020-06-16] MEDS ORDERED: NORMAL SALINE 1000 ML 1,000 ML IV ONE (06:03)
[2020-06-16] MEDS ORDERED: FAMOTIDINE INJ/PF 20 MG/2 ML SDV IV ONE (06:03)
[2020-06-16 07:08] LABS: APPEARANCE,URINE SLIGHTLY-CLOUDY; BILIRUBIN,URINE NEGATIVE (NEGATIVE); COLOR,URINE YELLOW; GLUCOSE, URINE NEGATIVE (NEGATIVE); KETONES,URINE NEGATIVE (NEGATIVE); LEUKOCYTE ESTERASE,URINE NEGATIVE (NEGATIVE); NITRITE,URINE NEGATIVE (NEGATIVE); PROTEIN,URINE NEGATIVE (NEGATIVE); URINE SPECIFIC GRAVITY 1.025
[2020-06-16 07:21] LABS: ALBUMIN 4.1 g/dL (3.5-5.0); ALKALINE PHOSPHATASE 103 U/L (38-126); ANION GAP 10 (5-19); ASPARTATE AMINO TRANSFERASE 27 U/L (14-36); BILIRUBIN,DIRECT 0.4 mg/dL (0.0-0.4); BILIRUBIN,TOTAL 0.8 mg/dL (0.2-1.3); BLOOD UREA NITROGEN 13 mg/dL (7-20); CALCIUM 9.4 mg/dL (8.4-10.2); CARBON DIOXIDE 18 mmol/L (22-30); CHLORIDE 108 mmol/L (98-107); GLUCOSE 109 mg/dL (75-110); POTASSIUM 4.7 mmol/L (3.6-5.0); TOTAL PROTEIN 7.1 g/dL (6.3-8.2)
[2020-06-16 08:16] LABS: ABSOLUTE BASOPHILS # (AUTO) 0.1 10^3/uL (0.0-0.2); ABSOLUTE EOSINOPHILS # (AUTO) 0.1 10^3/uL (0.0-0.6); ABSOLUTE LYMPHOCYTES (AUTO) 1.8 10^3/uL (0.5-4.7); ABSOLUTE MONOCYTES (AUTO) 0.5 10^3/uL (0.1-1.4); ABSOLUTE NEUT (AUTO) 4.6 10^3/uL (1.7-8.2); BASOPHILS % (AUTO) 1.4 % (0-2); EOSINOPHILS % (AUTO) 1.2 % (0-6); HEMATOCRIT 39.3 % (36.0-47.0); HEMOGLOBIN 13.3 g/dL (12.0-15.5); MEAN CORPUSCULAR HEMOGLOBIN 29.7 pg (27.0-33.4); MEAN CORPUSCULAR HGB CONC 33.9 g/dL (32.0-36.0); MEAN CORPUSCULAR VOLUME 88 fl (80-97); MONOCYTES % (AUTO) 6.9 % (3-13); RED BLOOD COUNT 4.49 10^6/uL (3.72-5.28); RED CELL DISTRIBUTION WIDTH 14.4 % (11.5-14.0); SEGMENTED NEUTROPHILS % (AUTO) 65.5 % (42-78); TOTAL CELLS COUNTED % (AUTO) 100 %; WHITE BLOOD COUNT 7.1 10^3/uL (4.0-10.5)
[2020-06-16 08:36] LABS: PLATELET COUNT 259 10^3/uL (150-450)
[2020-06-16 09:12] VITALS: BP 113/70
== END 2020-06-16 09:11 | disposition home or self-care (01) ==
LOC: ER 04:10
DX: R10.9 Unspecified abdominal pain (principal); K21.9 Gastro-esophageal reflux disease without esophagitis; F17.200 Nicotine dependence, unspecified, uncomplicated
CPT/HCPCS: 99284; 96361; 96374; 96375; 36415; 83690; 85025; 81025; 80053; 81001; J3490; J2405; J7030; S0028

== ENCOUNTER → 2020-10-09 | Outpatient (CLI) | payer OTHER ==
--- NOTE | 2020-10-09 10:06 | RADIOLOGY REPORT (SQ) ---
EXAM DESCRIPTION: MRI PELVIS WITHOUT IMAGES COMPLETED DATE/TIME: 10/09/2020 9:39 am REASON FOR STUDY: M53.3 SACROCOCCYGEAL DISORDERS, NOT ELSEWHERE CLASSIFIED M53.3 SACROCOCCYGEAL DIS ORDERS, NOT ELSEWHERE CLASSIFIED COMPARISON: None. TECHNIQUE: Multiplanar multisequence imaging performed without contrast including axial, sagittal an d coronal T2, axial T1, sagittal inversion recovery. LIMITATIONS: None. FINDINGS: Benign marrow reconversion. Anterior angulation of the coccyx with no evidence of marrow edema to suggest acute fracture or dislocation. Small central disc herniation at L5-S1 without signi ficant stenosis. No pelvic mass. Trace free fluid. IMPRESSION: No acute findings. TECHNICAL DOCUMENTATION: JOB ID: [id number] 2010 [employer]- All Rights Reserved Reading location - IP/workstation name: [email or web address]
== END ==
LOC: RAD 09:03
PROVIDERS: ATTEND Family Medicine
DX: M53.3 Sacrococcygeal disorders, not elsewhere classified (principal); M51.27 Other intervertebral disc displacement, lumbosacral region
CPT/HCPCS: 72195

== ENCOUNTER → 2020-10-09 | Outpatient (CLI) | payer OTHER ==
--- NOTE | 2020-10-09 11:23 | WOMENS IMAGING REPORT ---
EXAM DESCRIPTION: BEN LEHMAN BILATERAL SCREEN IMAGES COMPLETED DATE/TIME: 10/09/2020 10:16 am REASON FOR STUDY: ROUTINE SCREENING MAMMOGRAM Z12.31 Z12.31 ENCNTR SCREEN MAMMOGRAM FOR MALIGNANT N EOPLASM OF MARY LOU COMPARISON: 2017 EXAM PARAMETERS: Standard craniocaudal and mediolateral oblique views of each breast recorded using digital acquisition. Read with the assistance of CAD. .[facility] - [employer] Version 9.2 LIMITATIONS: None. FINDINGS: No suspicious masses, suspicious calcifications or architectural distortion. No areas of c oncern. IMPRESSION: NEGATIVE MAMMOGRAM. BIRADS 1 BREAST DENSITY: b. There are scattered areas of fibroglandular density. BIRAD: ASSESSMENT: 1 NEGATIVE RECOMMENDATION: ROUTINE SCREENING COMMENT: The patient has been notified of the results by letter per SA requirements. Additional no tification policies are in place for contacting patient with suspicious or incomplete findings. Quality ID #[id number]: The [employer] recommends an annual screening mammogram for women aged 40 years or over. This facility utilizes a reminder system to ensure that all patients receive reminder letters, and/or direct phone calls for appointments. This includes reminders for routine scr eening mammograms, diagnostic mammograms, or other Breast Imaging Interventions when appropriate. Th is patient will be placed in the appropriate reminder system. TECHNICAL DOCUMENTATION: FINDING NUMBER: (1) ASSESSMENT: (1) JOB ID: [id number] 2010 [employer]- All Rights Reserved Reading location - IP/workstation name: [email or web address]
== END ==
LOC: WI 10:00
PROVIDERS: ATTEND Family Medicine
DX: Z12.31 Encounter for screening mammogram for malignant neoplasm of breast (principal)
CPT/HCPCS: 77067